=== PATIENT | female | born 1945 | race Caucasian/White ===

== ENCOUNTER 2017-11-14 16:43 | Inpatient (IN) | payer OTHER ==
--- NOTE | 2017-11-14 17:29 | PDOC ---
History of Present Illness - General History Source: Patient Exam Limitations: No Limitations - History of Present Illness Initial Comments: 11/14/17 18:13 Patient is a 72 year old female with a significant past medical history of Arthritis, IBS and COPD, Hypercholesterolemia, Blind left eye, Hiatal hernia and Osteoporosis, who presents to the ED with complaints of right leg pain that began this morning. Patient reports rolling onto her right side this morning when she suddenly experienced a sharp pain that began at her right groin and began to shoot down her right leg. She reports being unable to walk since pain began, stating she cried while walking to the bathroom due to right leg pain. She reports taking 2 percocet and 1 valium for pain with minimal relief. Denies chest pain, SOB. Denies nausea, vomiting. Denies fevers, chills. Denies numbness, tingles. Denies trauma to affected area. Allergies: Morphine, Nalbuphine, Sulfa Social history: Former smoker (last 1 week, since 15 y.o). No alcohol. No illicit drugs. Surgical history: Lung nodule surgery. PMD: Dr. 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) HTN: No Hypercholesterolemia: Yes Liver Disease: No Seizures: No Thyroid Disease: No - Surgical History Abdominal Surgery: No Appendectomy: No Cardiac Surgery: No Cholecystectomy: No Lung Surgery: Yes (SURGERY OF LUNG NODULES) Neurologic Surgery: No Orthopedic Surgery: No - Suicide/Smoking/Psychosocial Hx Smoking Status: Yes Smoking History: Current every day smoker Have you smoked in the past 12 months: Yes Number of Cigarettes Smoked Daily: 5 'Breaking Loose' booklet given: 12/16/13 Hx Alcohol Use: No Drug/Substance Use Hx: No Substance Use Type: None Hx Substance Use Treatment: No <BlayneSuni - Last Filed: 11/15/17 18:23> - Past Medical History Allergies/Adverse Reactions: Allergies Allergy/AdvReac Type Severity Reaction Status Date / Time morphine Allergy Verified 06/03/14 15:08 nalbuphine HCl [From Nubain] Allergy Verified 06/03/14 15:08 Sulfa (Sulfonamide Allergy Verified 06/03/14 15:08 Antibiotics) Home Medications: Ambulatory Orders Calcium (Oyster Shell) [Os-Petey 500MG -] 500 mg PO BID 08/22/13 FENTANYL 50mcg PATCH [DURAGESIC 50 mcg PATCH -] 1 each TD Q72H 08/22/13 Lubiprostone [Amitiza] 24 mcg PO DAILY PRN 08/22/13 Multivitamin [Multivitamins] 1 each PO DAILY 08/22/13 Roflumilast [Daliresp -] 500 mcg PO DAILY 08/22/13 Metoprolol Succinate [Toprol XL -] 25 mg PO DAILY #0 tab.sr.24h 08/28/13 Pyridoxine HCl (B-6) [Vitamin B6 -] 100 mg PO DAILY #0 tablet 08/28/13 Albuterol Sulfate [Proair Hfa -] 1 - 2 inh PO TID 12/15/13 Budesonide/Formeterol Fumarate [SYMBICORT 160/4.5mcg -] 2 inh PO BID 12/15/13 Linaclotide [Linzess] 145 mcg PO DAILY 06/03/14 Rosuvastatin Calcium [Crestor] 10 mg PO DAILY 06/03/14 Acetaminophen [Tylenol .Extra-Strength -] 1,000 mg PO Q6H 05/26/15 Diazepam [Valium] 5 mg PO BID 05/26/15 Pregabalin [Lyrica -] 75 mg PO BID 05/26/15 Review of Systems - Review of Systems Able to Perform ROS?: Yes Comments:: 11/14/17 18:13 GENERAL/CONSTITUTIONAL: No fever or chills. No weakness. HEAD, EYES, EARS, NOSE AND THROAT: No change in vision. No ear pain or discharge. No sore throat. GASTROINTESTINAL: No nausea, vomiting, diarrhea or constipation. GENITOURINARY: No dysuria, frequency, or change in urination. CARDIOVASCULAR: No chest pain or shortness of breath. RESPIRATORY: No cough, wheezing, or hemoptysis. MUSCULOSKELETAL: +Right leg pain. No joint or muscle swelling or pain. No neck or back pain. SKIN: No rash NEUROLOGIC: No headache, vertigo, loss of consciousness, or change in strength/ sensation. ENDOCRINE: No increased thirst. No abnormal weight change. HEMATOLOGIC/LYMPHATIC: No anemia, easy bleeding, or history of blood clots. ALLERGIC/IMMUNOLOGIC: No hives or skin allergy. All Other Systems: Reviewed and Negative <Khoi Rao - Last Filed: 11/14/17 18:13> *Physical Exam - Physical Exam Comments: GENERAL: Awake, alert, and fully oriented, in no acute distress HEAD: No signs of trauma EYES: PERRLA, EOMI, sclera anicteric, conjunctiva clear ENT: Auricles normal inspection, hearing grossly normal, nares patent, oropharynx clear without exudates. Moist mucosa NECK: Normal ROM, supple, no lymphadenopathy, JVD, or masses LUNGS: Breath sounds equal, clear to auscultation bilaterally. No wheezes, and no crackles HEART: Regular rate and rhythm, normal S1 and S2, no murmurs, rubs or gallops ABDOMEN: Soft, nontender, normoactive bowel sounds. No guarding, no rebound. No masses EXTREMITIES: R hip with dec ROM due to pain. Slightly internally rotated but not shortened. +Tenderness to proximal femur, R pelvic bones. Remainder of extremities with normal range of motion, no edema. No clubbing or cyanosis. No cords, erythema, or tenderness NEUROLOGICAL: Cranial nerves II through XII grossly intact. Normal speech, normal gait SKIN: Warm, Dry, normal turgor, no rashes or lesions noted. <Suni Cisneros - Last Filed: 11/15/17 18:23> ED Treatment Course - LABORATORY CBC & Chemistry Diagram: 11/14/17 18:54 11/14/17 21:19 <Suni Cisneros - Last Filed: 11/15/17 18:23> Medical Decision Making - Medical Decision Making 11/14/17 19:[address] Felipe at shift change. Awaiting XR to evaluate for poss fracture. She has history of osteoporosis with very low bone mass, high risk for fractures. Likely admission for inability to ambulate. <Suni Cisneros - Last Filed: 11/15/17 18:23> *DC/Admit/Observation/Transfer - Attestations Scribe Attestion: 11/14/17 18:13 Documentation prepared by Khoi Rao, acting as medical instrument cable fabricator for Suni Cisneros MD, /DO. <Khoi Rao - Last Filed: 11/14/17 18:13> <Suni Cisneros - Last Filed: 11/15/17 18:23> Diagnosis at time of Disposition: Intractable neuropathic pain of right lower extremity - Discharge Dispostion Condition at time of disposition: Stable
[2017-11-14] MEDS ORDERED: HYDROmorphone HCL CARPU-JECT 1 MG/1 ML DISP.SYRIN IVPUSH ONE ×2 (17:41→23:45)
[2017-11-14] MEDS ORDERED: fentaNYL 50mcg/hr PATCH.TD72 TD ONE (17:42)
[2017-11-14 18:47] VITALS: BMI 13.8
[2017-11-14 19:22] LABS: BASO % 0.9 % (0-2.0); EOS % 1.9 % (0-4.5); HEMATOCRIT 33.5 % (32.4-45.2); HEMOGLOBIN 11.3 GM/dL (10.7-15.3); LYMPH % 16.2 % (8-40); MCH 30.3 pg (25.7-33.7); MCHC 33.7 g/dl (32.0-36.0); MEAN CELL VOLUME 89.9 fl (80-96); MEAN PLT VOLUME 9.8 fl (7.5-11.1); MONO % 7.8 % (3.8-10.2); NEUT % 73.2 % (42.8-82.8); PLATELET COUNT 190 K/MM3 (134-434); RBC 3.73 M/mm3 (3.60-5.2); RDW 15.5 % (11.6-15.6); WHITE BLOOD COUNT 3.9 K/mm3 (4.0-10.0)
[2017-11-14] MEDS ORDERED: HYDROmorphone HCL CARPU-JECT 2 MG/1 ML DISP.SYRIN ONE ×2 (19:25→23:57)
[2017-11-14] MEDS ORDERED: fentaNYL 25mcg/hr PATCH.TD72 ONE (19:29)
[2017-11-14 19:39] LABS: INR 0.96 (0.82-1.09); PROTHROMBIN TIME (PATIENT) 10.9 SEC (9.98-11.88)
[2017-11-14 22:29] LABS: ALBUMIN 3.3 g/dl (3.4-5.0); ANION GAP 6 (8-16); BLOOD UREA NITROGEN 15 mg/dL (7-18); CALCIUM 8.1 mg/dL (8.5-10.1); CHLORIDE 105 mmol/L (98-107); CO2 28 mmol/L (21-32); CREATININE 0.9 mg/dL (0.55-1.02); GLUCOSE,RANDOM 138 mg/dL (74-106); POTASSIUM 4.2 mmol/L (3.5-5.1); SGOT/AST 8 U/L (15-37); SGPT/ALT 11 U/L (12-78); SODIUM 139 mmol/L (136-145)
[2017-11-14 22:31] LABS: ALK PHOS 53 U/L (45-117); BILIRUBIN,TOTAL 0.5 mg/dL (0.2-1.0); TOT PROT 6.4 g/dl (6.4-8.2)
--- NOTE | 2017-11-14 23:46 | PDOC ---
History of Present Illness - General Chief Complaint: Pain, Acute Stated Complaint: LEG PAIN Time Seen by Provider: 11/14/17 16:54 Past History - Past Medical History Allergies/Adverse Reactions: Allergies Allergy/AdvReac Type Severity Reaction Status Date / Time morphine Allergy Verified 06/03/14 15:08 nalbuphine HCl [From Nubain] Allergy Verified 06/03/14 15:08 Sulfa (Sulfonamide Allergy Verified 06/03/14 15:08 Antibiotics) Home Medications: Ambulatory Orders Calcium (Oyster Shell) [Os-Petey 500MG -] 500 mg PO BID 08/22/13 FENTANYL 50mcg PATCH [DURAGESIC 50 mcg PATCH -] 1 each TD Q72H 08/22/13 Lubiprostone [Amitiza] 24 mcg PO DAILY PRN 08/22/13 Multivitamin [Multivitamins] 1 each PO DAILY 08/22/13 Roflumilast [Daliresp -] 500 mcg PO DAILY 08/22/13 Metoprolol Succinate [Toprol XL -] 25 mg PO DAILY #0 tab.sr.24h 08/28/13 Pyridoxine HCl (B-6) [Vitamin B6 -] 100 mg PO DAILY #0 tablet 08/28/13 Albuterol Sulfate [Proair Hfa -] 1 - 2 inh PO TID 12/15/13 Budesonide/Formeterol Fumarate [SYMBICORT 160/4.5mcg -] 1 inh PO DAILY 12/15/13 Linaclotide [Linzess] 145 mcg PO DAILY 06/03/14 Rosuvastatin Calcium [Crestor] 10 mg PO DAILY 06/03/14 Acetaminophen [Tylenol .Extra-Strength -] 1,000 mg PO Q6H 05/26/15 Diazepam [Valium] 5 mg PO BID 05/26/15 No Aspirin/Nsaids 05/26/15 Pregabalin [Lyrica -] 75 mg PO BID 05/26/15 Anemia: No Asthma: No Cancer: No Cardiac Disorders: No CVA: No COPD: Yes (emphysema) CHF: No Dementia: No Diabetes: No GI Disorders: Yes (HIATAL HERNIA) 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) HTN: No Hypercholesterolemia: Yes Liver Disease: No Seizures: No Thyroid Disease: No - Surgical History Abdominal Surgery: No Appendectomy: No Cardiac Surgery: No Cholecystectomy: No Lung Surgery: Yes (SURGERY OF LUNG NODULES) Neurologic Surgery: No Orthopedic Surgery: No - Suicide/Smoking/Psychosocial Hx Smoking Status: Yes Smoking History: Former smoker Have you smoked in the past 12 months: Yes Number of Cigarettes Smoked Daily: 20 If you are a former smoker, when did you quit?: t-7 Information on smoking cessation initiated: No 'Breaking Loose' booklet given: 12/16/13 Hx Alcohol Use: No Drug/Substance Use Hx: No Substance Use Type: None Hx Substance Use Treatment: No *Physical Exam - Vital Signs Last Vital Signs Temp Pulse Resp BP Pulse Ox 98.3 F 59 L 20 108/62 97 11/14/17 18:39 11/14/17 18:39 11/14/17 18:39 11/14/17 18:39 11/14/17 18:39 ED Treatment Course - LABORATORY CBC & Chemistry Diagram: 11/14/17 18:54 11/14/17 21:19 - ADDITIONAL ORDERS Additional order review: Laboratory Results 11/14/17 11/14/17 11/14/17 21:19 18:54 18:54 PT with INR INR Sodium 139 Cancelled Potassium 4.2 Cancelled Chloride 105 Cancelled Carbon Dioxide 28 Cancelled Anion Gap 6 L Cancelled BUN 15 Cancelled Creatinine 0.9 Cancelled Creat Clearance w eGFR > 60 Cancelled Random Glucose 138 H Cancelled Calcium 8.1 L Cancelled Total Bilirubin 0.5 Cancelled AST 8 L Cancelled ALT 11 L Cancelled Alkaline Phosphatase 53 Cancelled Total Protein 6.4 Cancelled Albumin 3.3 L Cancelled Blood Type Cancelled Antibody Screen Cancelled 11/14/17 18:54 PT with INR 10.90 INR 0.96 Sodium Potassium Chloride Carbon Dioxide Anion Gap BUN Creatinine Creat Clearance w eGFR Random Glucose Calcium Total Bilirubin AST ALT Alkaline Phosphatase Total Protein Albumin Blood Type Antibody Screen 11/14/17 18:54 RBC 3.73 MCV 89.9 MCHC 33.7 RDW 15.5 D MPV 9.8 Neutrophils % 73.2 D Lymphocytes % 16.2 D Monocytes % 7.8 Eosinophils % 1.9 D Basophils % 0.9 - Medications Given in the ED: ED Medications Discontinued Medications Generic Name Dose Route Start Last Admin Trade Name Freq PRN Reason Stop Dose Admin Fentanyl 1 patch 11/14/17 17:42 11/14/17 19:37 Duragesic 50mcg Patch - TD 11/14/17 17:43 1 patch ONCE ONE Administration Hydromorphone HCl 0.5 mg 11/14/17 17:41 11/14/17 19:29 Dilaudid Injection - IVPUSH 11/14/17 17:42 0.5 mg ONCE ONE Administration *DC/Admit/Observation/Transfer Diagnosis at time of Disposition: Intractable neuropathic pain of right lower extremity - Discharge Dispostion Condition at time of disposition: Stable Admit: Yes - Referrals Referrals: Rashad Keen MD [Primary Care Provider] - - Patient Instructions - Post Discharge Activity
[2017-11-15] MEDS ORDERED: PATIENT'S OWN MEDICATION (NON-FORMULARY) (Lubiprostone [Amitiza] 24 MCG) PO PRN (01:09)
--- NOTE | 2017-11-15 01:17 | HP ---
CHIEF COMPLAINT: Right groin and RLE pain PCP: Rashad Keen HISTORY OF PRESENT ILLNESS: 72 year old female with history of chronic R groin pain that presents with acute exacerbation of such pain , 10 /10 in intensity, radiating down to RLE . Unabe to ambulate due to severe pain . Denies trauma ER course was notable for: multiple doses of IV dilaudid Recent Travel: PAST MEDICAL HISTORY: Fibromyalgia COPD HTN Hyperlipidemia PAST SURGICAL HISTORY: denies Social History: Smoking: Yes 40 p/y quit 1 week ago Alcohol:denies Drugs: denies Family History: HTN Allergies morphine Allergy (Verified 06/03/14 15:08) nalbuphine HCl [From Nubain] Allergy (Verified 06/03/14 15:08) Sulfa (Sulfonamide Antibiotics) Allergy (Verified 06/03/14 15:08) HOME MEDICATIONS: Home Medications Medication Instructions Recorded Calcium (Oyster Shell) [Os-Petey 500 mg PO BID 08/22/13 500MG -] FENTANYL 50mcg PATCH [DURAGESIC 50 1 each TD Q72H 08/22/13 mcg PATCH -] Lubiprostone [Amitiza] 24 mcg PO DAILY PRN 08/22/13 Multivitamin [Multivitamins] 1 each PO DAILY 08/22/13 Roflumilast [Daliresp -] 500 mcg PO DAILY 08/22/13 Metoprolol Succinate [Toprol XL -] 25 mg PO DAILY #0 tab.sr.24h 08/28/13 Pyridoxine HCl (B-6) [Vitamin B6 -] 100 mg PO DAILY #0 tablet 08/28/13 Albuterol Sulfate [Proair Hfa -] 1 - 2 inh PO TID 12/15/13 Budesonide/Formeterol Fumarate 1 inh PO DAILY 12/15/13 [SYMBICORT 160/4.5mcg -] Linaclotide [Linzess] 145 mcg PO DAILY 06/03/14 Rosuvastatin Calcium [Crestor] 10 mg PO DAILY 06/03/14 Acetaminophen [Tylenol 1,000 mg PO Q6H 05/26/15 .Extra-Strength -] Diazepam [Valium] 5 mg PO BID 05/26/15 No Aspirin/Nsaids 05/26/15 Pregabalin [Lyrica -] 75 mg PO BID 05/26/15 REVIEW OF SYSTEMS CONSTITUTIONAL: Absent: fever, chills, diaphoresis, generalized weakness, malaise, loss of appetite, weight change HEENT: Absent: rhinorrhea, nasal congestion, throat pain, throat swelling, difficulty swallowing, mouth swelling, ear pain, eye pain, visual changes CARDIOVASCULAR: Absent: chest pain, syncope, palpitations, irregular heart rate, lightheadedness , peripheral edema RESPIRATORY: Absent: cough, shortness of breath, dyspnea with exertion, orthopnea, wheezing, stridor, hemoptysis GASTROINTESTINAL: Absent: abdominal pain, abdominal distension, nausea, vomiting, diarrhea, constipation, melena, hematochezia GENITOURINARY: Absent: dysuria, frequency, urgency, hesitancy, hematuria, flank pain, genital pain MUSCULOSKELETAL: positive forarthralgia, back pain, neck pain SKIN: Absent: rash, itching, pallor HEMATOLOGIC/IMMUNOLOGIC: Absent: easy bleeding, easy bruising, lymphadenopathy, frequent infections ENDOCRINE: Absent: unexplained weight gain, unexplained weight loss, heat intolerance, cold intolerance NEUROLOGIC: Absent: headache, focal weakness or paresthesias, dizziness, unsteady gait, seizure, mental status changes, bladder or bowel incontinence PSYCHIATRIC: Absent: anxiety, depression, suicidal or homicidal ideation, hallucinations. PHYSICAL EXAMINATION Vital Signs - 24 hr 11/14/17 18:39 Temperature 98.3 F Pulse Rate 59 L Respiratory 20 Rate Blood Pressure 108/62 O2 Sat by Pulse 97 Oximetry (%) GENERAL: Awake, alert, and fully oriented, in no acute distress. HEAD: Normal with no signs of trauma. EYES: Pupils equal, round and reactive to light, extraocular movements intact, sclera anicteric, conjunctiva clear. No lid lag. EARS, NOSE, THROAT: Ears normal, nares patent, oropharynx clear without exudates. Moist mucous membranes. NECK: Normal range of motion, supple without lymphadenopathy, JVD, or masses. LUNGS: Breath sounds equal, clear to auscultation bilaterally. No wheezes, and no crackles. No accessory muscle use. HEART: Regular rate and rhythm, normal S1 and S2 without murmur, rub or gallop. ABDOMEN: Soft, nontender, not distended, normoactive bowel sounds, no guarding, no rebound, no masses. No hepatomegaly or splenomegaly. MUSCULOSKELETAL: Normal range of motion at all joints. No bony deformities or tenderness. No CVA tenderness. UPPER EXTREMITIES: 2+ pulses, warm, well-perfused. No cyanosis. No clubbing. No peripheral edema. LOWER EXTREMITIES: 2+ pulses, warm, well-perfused. No calf tenderness. No peripheral edema. NEUROLOGICAL: Cranial nerves II-XII intact. Normal speech. Normal gait. PSYCHIATRIC: Cooperative. Good eye contact. Appropriate mood and affect. SKIN: Warm, dry, normal turgor, no rashes or lesions noted, normal capillary refill. Laboratory Results - last 24 hr 11/14/17 11/14/17 11/14/17 18:54 18:54 18:54 WBC 3.9 L RBC 3.73 Hgb 11.3 D Hct 33.5 D MCV 89.9 MCH 30.3 MCHC 33.7 RDW 15.5 D Plt Count 190 D MPV 9.8 Neutrophils % 73.2 D Lymphocytes % 16.2 D Monocytes % 7.8 Eosinophils % 1.9 D Basophils % 0.9 PT with INR 10.90 INR 0.96 Sodium Cancelled Potassium Cancelled Chloride Cancelled Carbon Dioxide Cancelled Anion Gap Cancelled BUN Cancelled Creatinine Cancelled Creat Clearance w eGFR Cancelled Random Glucose Cancelled Calcium Cancelled Total Bilirubin Cancelled AST Cancelled ALT Cancelled Alkaline Phosphatase Cancelled Total Protein Cancelled Albumin Cancelled Blood Type Antibody Screen 11/14/17 11/14/17 18:54 21:19 WBC RBC Hgb Hct MCV MCH MCHC RDW Plt Count MPV Neutrophils % Lymphocytes % Monocytes % Eosinophils % Basophils % PT with INR INR Sodium 139 Potassium 4.2 Chloride 105 Carbon Dioxide 28 Anion Gap 6 L BUN 15 Creatinine 0.9 Creat Clearance w eGFR > 60 Random Glucose 138 H Calcium 8.1 L Total Bilirubin 0.5 AST 8 L ALT 11 L Alkaline Phosphatase 53 Total Protein 6.4 Albumin 3.3 L Blood Type Cancelled Antibody Screen Cancelled ASSESSMENT/PLAN: 1. Intractable pain - possible schiatica - required multiple doses of IV narcotics . Unable to ambulate due to pain . XR - no caute fractures - IV dilaudid PRN - PT eval - d/c planning to s/acute rehab vs home 2. HTN - stable / controlled - c/w home meds 3. DVT PPX - scd, short stay anticipated OBS Visit type - Emergency Visit Emergency Visit: Yes ED Registration Date: 11/14/17 Care time: The patient presented to the Emergency Department on the above date and was hospitalized for further evaluation of their emergent condition. - New Patient This patient is new to me today: Yes Date on this admission: 11/15/17 - Critical Care Critical Care patient: No
[2017-11-15] MEDS ORDERED: HYDROmorphone HCL CARPU-JECT 2 MG/1 ML DISP.SYRIN ONE (08:11)
[2017-11-15] MEDS: HYDROmorphone HCL CARPU-JECT 2 MG/1 ML DISP.SYRIN IVPB PRN (08:12)
[2017-11-15] MEDS: ROSUVASTATIN CA 10 MG TABLET (FP) PO SCH (09:32)
[2017-11-15] MEDS: ROFLUMILAST 500 MCG TABLET PO SCH (09:32)
[2017-11-15] MEDS: METOPROLOL SUCCINATE 25 MG TAB.SR.24H (FP) PO SCH (09:33)
[2017-11-15] MEDS ORDERED: PREGABALIN 50 MG CAPSULE ONE (09:34)
[2017-11-15] MEDS ORDERED: diazePAM 5 MG TABLET ONE (09:34)
[2017-11-15] MEDS ORDERED: PREGABALIN 25 MG CAPSULE ONE (09:34)
[2017-11-15] MEDS: diazePAM 5 MG TABLET PO SCH ×2 (09:35→22:23)
[2017-11-15] MEDS: PREGABALIN 75 MG CAPSULE PO SCH ×2 (09:35→22:23)
[2017-11-15] MEDS: BUDESONIDE/FORMETEROL FUMARATE 160/4.5 mcg INHALER IH SCH ×2 (09:35→22:23)
--- NOTE | 2017-11-15 12:31 | EKG ---
Test Reason : Blood Pressure : / mmHG Vent. Rate : 070 BPM Atrial Rate : 070 BPM P-R Int : 186 ms QRS Dur : 082 ms QT Int : 374 ms P-R-T Axes : 079 073 076 degrees QTc Int : 403 ms NORMAL SINUS RHYTHM CANNOT RULE OUT ANTERIOR INFARCT (CITED ON OR BEFORE 12-APR-2012) ABNORMAL ECG WHEN COMPARED WITH ECG OF 03-JUN-2014 16:41, NO SIGNIFICANT CHANGE WAS FOUND Confirmed by CESAR MULLINS MD ([id number]) on 11/15/2017 12:30:31 PM Referred By: Confirmed By:CESAR MULLINS MD
--- NOTE | 2017-11-15 13:12 | PN ---
Progress Note, Physician Chief Complaint: patient seen and examined RLE pain when she moves in bed, unable to ambulate - Current Medication List Current Medications: Active Medications Budesonide/Formoterol Fumarate (Symbicort 160/4.5mcg -) 2 puff IH BID [facility] Last Admin: 11/15/17 09:35 Dose: Not Given Diazepam (Valium -) 5 mg PO BID [facility] Last Admin: 11/15/17 09:35 Dose: 5 mg Fentanyl (Duragesic 50mcg Patch -) 1 patch TD Q72H [facility] Hydromorphone HCl (Dilaudid Injection -) 0.5 mg IVPB Q6H PRN PRN Reason: PAIN Last Admin: 11/15/17 08:12 Dose: 0.5 mg Metoprolol Succinate (Toprol Xl -) 25 mg PO DAILY [facility] Last Admin: 11/15/17 09:33 Dose: 25 mg Non-Formulary Medication (Lubiprostone [Amitiza]) 24 mcg PO DAILY PRN PRN Reason: CONSTIPATION Pregabalin (Lyrica -) 75 mg PO BID [facility] Last Admin: 11/15/17 09:35 Dose: 75 mg Roflumilast (Daliresp -) 500 mcg PO DAILY [facility] Last Admin: 11/15/17 09:32 Dose: 500 mcg Rosuvastatin Calcium (Crestor -) 10 mg PO DAILY [facility] Last Admin: 11/15/17 09:32 Dose: 10 mg - Objective Vital Signs: Vital Signs Temperature 98.4 F 11/15/17 12:00 Pulse Rate 60 11/15/17 12:00 Respiratory Rate 18 11/15/17 12:00 Blood Pressure 128/77 11/15/17 12:00 O2 Sat by Pulse Oximetry (%) 97 11/15/17 12:00 Constitutional: Yes: Calm Cardiovascular: Yes: Regular Rate and Rhythm, S1, S2 Respiratory: Yes: CTA Bilaterally Gastrointestinal: Yes: Normal Bowel Sounds, Soft Edema: No Neurological: Yes: Alert, Oriented Labs: CBC, BMP 11/14/17 18:54 11/14/17 21:19 INR, PTT INR 0.96 (0.82-1.09) 11/14/17 18:54 Problem List - Problems (1) Intractable neuropathic pain of right lower extremity Assessment/Plan: neuro eval PMR eval CT scan of LE lyrica possible STR dvt ppx pain control Code(s): G57.91 - UNSPECIFIED MONONEUROPATHY OF RIGHT LOWER LIMB (2) HTN (hypertension) Assessment/Plan: metoprolol Code(s): I10 - ESSENTIAL (PRIMARY) HYPERTENSION (3) HLD (hyperlipidemia) Assessment/Plan: statin Code(s): E78.5 - HYPERLIPIDEMIA, UNSPECIFIED (4) COPD (chronic obstructive pulmonary disease) Assessment/Plan: daliresp Code(s): J44.9 - CHRONIC OBSTRUCTIVE PULMONARY DISEASE, UNSPECIFIED
--- NOTE | 2017-11-16 09:29 | CONSULT ---
Consult - text type - Consultation Consultation Note: Neurology History of Present Illness Patient is a 72 year old female with a significant past medical history of Arthritis, IBS and COPD, Hypercholesterolemia, Blind left eye, Hiatal hernia and Osteoporosis, who presents to the ED with complaints of right leg pain. She reported rolling onto her right side when she suddenly experienced a sharp pain that began at her right groin and began to shoot down her right leg. She reports being unable to walk since pain began, stating she cried while walking to the bathroom due to right leg pain. She reports taking 2 percocet and 1 valium for pain with minimal relief. She was admitted for further mgmt and has been getting medication. MRI L spine completed and reviewed images. Awaiting final report but multilevel degenerative changes noted. Multilevel bulging and herniations. Patient not interested in surgery and not likely to be a good candidate. Past History - Past Medical History Anemia: No Asthma: No Cancer: No Cardiac Disorders: No CVA: No COPD: Yes (emphysema) CHF: No Dementia: No Diabetes: No GI Disorders: Yes (HIATAL HERNIA) 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) HTN: No Hypercholesterolemia: Yes Liver Disease: No Seizures: No Thyroid Disease: No - Surgical History Abdominal Surgery: No Appendectomy: No Cardiac Surgery: No Cholecystectomy: No Lung Surgery: Yes (SURGERY OF LUNG NODULES) Neurologic Surgery: No Orthopedic Surgery: No - Suicide/Smoking/Psychosocial Hx Smoking Status: Yes Smoking History: Current every day smoker Have you smoked in the past 12 months: Yes Number of Cigarettes Smoked Daily: 5 'Breaking Loose' booklet given: 12/16/13 Hx Alcohol Use: No Drug/Substance Use Hx: No Substance Use Type: None Hx Substance Use Treatment: No - Past Medical History Allergies/Adverse Reactions: Allergies Allergy/AdvReac Type Severity Reaction Status Date / Time morphine Allergy Verified 06/03/14 15:08 nalbuphine HCl [From Nubain] Allergy Verified 06/03/14 15:08 Sulfa (Sulfonamide Allergy Verified 06/03/14 15:08 Antibiotics) Home Medications: Ambulatory Orders Calcium (Oyster Shell) [Os-Petey 500MG -] 500 mg PO BID 08/22/13 FENTANYL 50mcg PATCH [DURAGESIC 50 mcg PATCH -] 1 each TD Q72H 08/22/13 Lubiprostone [Amitiza] 24 mcg PO DAILY PRN 08/22/13 Multivitamin [Multivitamins] 1 each PO DAILY 08/22/13 Roflumilast [Daliresp -] 500 mcg PO DAILY 08/22/13 Metoprolol Succinate [Toprol XL -] 25 mg PO DAILY #0 tab.sr.24h 08/28/13 Pyridoxine HCl (B-6) [Vitamin B6 -] 100 mg PO DAILY #0 tablet 08/28/13 Albuterol Sulfate [Proair Hfa -] 1 - 2 inh PO TID 12/15/13 Budesonide/Formeterol Fumarate [SYMBICORT 160/4.5mcg -] 2 inh PO BID 12/15/13 Linaclotide [Linzess] 145 mcg PO DAILY 06/03/14 Rosuvastatin Calcium [Crestor] 10 mg PO DAILY 06/03/14 Acetaminophen [Tylenol .Extra-Strength -] 1,000 mg PO Q6H 05/26/15 Diazepam [Valium] 5 mg PO BID 05/26/15 Pregabalin [Lyrica -] 75 mg PO BID 05/26/15 Review of Systems GENERAL/CONSTITUTIONAL: No fever or chills. No weakness. HEAD, EYES, EARS, NOSE AND THROAT: No change in vision. No ear pain or discharge. No sore throat. GASTROINTESTINAL: No nausea, vomiting, diarrhea or constipation. GENITOURINARY: No dysuria, frequency, or change in urination. CARDIOVASCULAR: No chest pain or shortness of breath. RESPIRATORY: No cough, wheezing, or hemoptysis. MUSCULOSKELETAL: +Right leg pain. No joint or muscle swelling or pain. No neck or back pain. SKIN: No rash NEUROLOGIC: No headache, vertigo, loss of consciousness, or change in strength/ sensation. ENDOCRINE: No increased thirst. No abnormal weight change. HEMATOLOGIC/LYMPHATIC: No anemia, easy bleeding, or history of blood clots. ALLERGIC/IMMUNOLOGIC: No hives or skin allergy. All Other Systems: Reviewed and Negative *Physical Exam Vital Signs Period Temp Pulse Resp BP Sys/Martinez Pulse Ox Last 24 Hr 98.4 F-98.8 F 60-74 18-20 120-128/75-77 95-97 GENERAL: Awake, alert, and fully oriented, in no acute distress HEAD: No signs of trauma EYES: PERRLA, EOMI, sclera anicteric, conjunctiva clear ENT: Auricles normal inspection, hearing grossly normal, nares patent, oropharynx clear without exudates. Moist mucosa NECK: Normal ROM, supple, no lymphadenopathy, JVD, or masses LUNGS: Breath sounds equal, clear to auscultation bilaterally. No wheezes, and no crackles HEART: Regular rate and rhythm, normal S1 and S2, no murmurs, rubs or gallops ABDOMEN: Soft, nontender, normoactive bowel sounds. No guarding, no rebound. No masses EXTREMITIES: R hip with dec ROM due to pain. Slightly internally rotated but not shortened. +Tenderness to proximal femur, R pelvic bones. Remainder of extremities with normal range of motion, no edema. No clubbing or cyanosis. No cords, erythema, or tenderness NEUROLOGICAL: Cranial nerves II through XII grossly intact. Normal speech, RLE 4-/5 at best effort, 5/5 in UE SKIN: Warm, Dry, normal turgor, no rashes or lesions noted. CBCD WBC 3.9 K/mm3 (4.0-10.0) L 11/14/17 18:54 RBC 3.73 M/mm3 (3.60-5.2) 11/14/17 18:54 Hgb 11.3 GM/dL (10.7-15.3) D 11/14/17 18:54 Hct 33.5 % (32.4-45.2) D 11/14/17 18:54 MCV 89.9 fl (80-96) 11/14/17 18:54 MCHC 33.7 g/dl (32.0-36.0) 11/14/17 18:54 RDW 15.5 % (11.6-15.6) D 18 18:54 Plt Count 190 K/MM3 (134-434) D 11/14/17 18:54 MPV 9.8 fl (7.5-11.1) 18 18:54 CMP Sodium 139 mmol/L (136-145) 11/14/17 21:19 Potassium 4.2 mmol/L (3.5-5.1) 11/14/17 21:19 Chloride 105 mmol/L (98-107) 11/14/17 21:19 Carbon Dioxide 28 mmol/L (21-32) 11/14/17 21:19 Anion Gap 6 (8-16) L 11/14/17 21:19 BUN 15 mg/dL (7-18) 11/14/17 21:19 Creatinine 0.9 mg/dL (0.55-1.02) 11/14/17 21:19 Creat Clearance w eGFR > 60 (>60) 11/14/17 21: Calcium 8.1 mg/dL (8.5-10.1) L 11/14/17 21: Total Bilirubin 0.5 mg/dL (0.2-1.0) 11/14/17 21:19 AST 8 U/L (15-37) L 11/14/17 21: ALT 11 U/L (12-78) L 11/14/17 21: Alkaline Phosphatase 53 U/L (45-117) 11/14/17 21: Total Protein 6.4 g/dl (6.4-8.2) 11/14/17 21: Albumin 3.3 g/dl (3.4-5.0) L 11/14/17 21:19 MRI L spine reviewed Plan: 72 year old female with a significant past medical history of Arthritis, IBS and COPD, Hypercholesterolemia, Blind left eye, Hiatal hernia and Osteoporosis, who presents to the ED with complaints of right leg pain. She reported rolling onto her right side when she suddenly experienced a sharp pain that began at her right groin and began to shoot down her right leg. She reports being unable to walk since pain began, stating she cried while walking to the bathroom due to right leg pain. MRI L spine completed and reviewed images. Awaiting final report but multilevel degenerative changes noted. Multilevel bulging and herniations. Patient not interested in surgery and not likely to be a good candidate. May benefit from injections Pain mgmt recommended, caution with retirement opioid use Fall precautions Physical therapy Patient not interested in rehab May benefit from assistive device
[2017-11-16] MEDS: PREGABALIN 75 MG CAPSULE PO SCH ×2 (09:56→21:27)
[2017-11-16] MEDS: METOPROLOL SUCCINATE 25 MG TAB.SR.24H (FP) PO SCH (09:58)
[2017-11-16] MEDS: diazePAM 5 MG TABLET PO SCH ×2 (09:58→21:26)
[2017-11-16] MEDS: HYDROmorphone HCL CARPU-JECT 2 MG/1 ML DISP.SYRIN IVPB PRN (10:00)
--- NOTE | 2017-11-16 10:00 | CONS ---
PHYSICAL MEDICINE REHABILITATION CONSULTATION REFERRING PHYSICIAN: Ramya Stallings MD DATE OF ADMISSION: 11/15/2017 DATE OF CONSULTATION: 11/16/2017 HISTORY OF PRESENT ILLNESS: The patient is a 72-year-old woman with past medical history of lumbar radiculopathy, COPD, fibromyalgia, who was admitted with increasing pain radiating into her right groin and down the right lower extremity with inability to ambulate over the last 3 weeks. Patient states she has had chronic problems with her back dating back many decades. She has undergone injections in the past, which have not helped and underwent an MRI back in 2013 of the lumbar spine which showed degenerative disc disease at L4-L5 with some osteophyte formation. Patient also on presentations in the emergency room underwent x-ray of her pelvis and hip, which were negative, but did show L4-L5 degenerative disc disease as well as spondylosis at this level bilaterally. Patient is comfortable in bed and also apparently underwent an MRI of the lumbar spine, official results are pending. Patient is on Lyrica 75 mg twice a day. She states normally at home she is on 3 times a day, but it may give her some side effects. Patient also usually takes Percocet and Valium. She is on a Duragesic patch currently at 50 mcg every 72 hours with Dilaudid for breakthrough pain. She normally takes Percocet for breakthrough pain. Patient is on Valium 5 mg twice a day additionally. Patient has been up and ambulatory since hospitalization and is now seen in rehabilitation evaluation. She does complain of some tingling in the right lower extremity and weakness mainly due to pain. REVIEW OF PAST MEDICAL AND SURGICAL HISTORY: Fibromyalgia, COPD, hypertension, hyperlipidemia. SOCIAL HISTORY: She lives in an apartment with a significant other. She apparently has an elevator. She used a cane, and also has a walker at home, but was using a cane mainly. She has a [id number] tobacco history and states she quit about a week ago. No alcohol. FAMILY HISTORY: Significant for elevated blood pressure. ALLERGY: To MORPHINE. REVIEW OF SYSTEMS: No current lightheadedness or dizziness. She does get some blurry vision , which she though may have been due to the Lyrica 3 times a day. She is blind in her left eye. No nausea, vomiting, difficulty swallowing, difficulty chewing. No chest pain or shortness of breath at rest. She does get dyspneic with exertion. No numbness/tingling in the upper extremities, but she feels generalized joint arthralgias and muscle aches even in the left lower extremity, which is not her chief complaint and is more its baseline. She has less back pain than groin and leg pain, but she does get some degree of back pain, tingling in the right lower extremity, and again weakness. No skin rash. No significant weight change. PHYSICAL EXAMINATION: General: On examination, a very thin, cachectic woman seen lying in bed. She is awake and cooperative and seems to be a fairly good historian. She is in no acute distress. HEENT: She is normocephalic and atraumatic. Her extraocular muscles appear intact. She has no obvious facial weakness. Neck: Supple. Extremities: Without any pitting edema or isolated calf tenderness. She is generally sore throughout all of her muscles. Skin: Without any rash or breakdown. Neuromuscular: She is awake, alert, and oriented x3. Cranial nerves 2 through 12 are grossly intact. She seems to have good motor power in the upper extremities and left lower extremity with some mild hip girdle weakness. The right lower extremity also has good distal strength with perhaps mild dorsiflexion weakness on the right, 4+ out of 5. Patient has normal sensation to pinprick, and moderate weakness of the hip girdle, 3 out of 5. She has good internal and external rotation in both hip joints and good knee flexion and extension, good dorsiflexion and plantar flexion, symmetric reflexes. Unable to stand or ambulate her at this time. OVERALL IMPRESSION: 1. Deficits mobility and activities of daily living. 2. Right L5 radiculopathy with underlying degenerative disc disease at L4-L5, spondylosis, and possibly some mild canal stenosis on MRI, official report pending. 3. Fibromyalgia. 4. Underlying chronic obstructive pulmonary disease. 5. Cachexia. 6. Hypertension. 7. Hyperlipidemia. PLANS AND SUGGESTIONS: 1. Agree with physical therapy for mobilization as able, strengthening as able. 2. Check official MRI report. Again, images are reviewed and may show some canal stenosis in addition to the degenerative disc disease at L4-L5 and spondylosis. 3. Continue Lyrica 75 mg twice a day. 4. Continue Duragesic patch and Dilaudid for breakthrough pain, but change to oral Percocet when able. 5. Continue Valium. 6. Patient states she has not had any improvement with cortisone injection or lumbar epidural in the past. 7. Hopefully home with home or outpatient therapy, less likely short-term rehabilitation in a [place] [facility] facility. Thank you for this referral. YADIRA MIR M.D. MONE/[id number]
[2017-11-16] MEDS ORDERED: PT OWN MED DRAWER 7, Y5N ONE (10:04)
--- NOTE | 2017-11-16 10:04 | PN ---
Progress Note, Physician Chief Complaint: Right groin pain, inability to ambulate History of Present Illness: NAD, in bed, pain is improved seen by Neurology MRI lumbar spine done, awaiting official report not a candidate for surgery, doesn't want surgery or rehab to be evaluated by PT pain management - Current Medication List Current Medications: Active Medications Budesonide/Formoterol Fumarate (Symbicort 160/4.5mcg -) 2 puff IH BID [facility] Last Admin: 11/15/17 22:23 Dose: 2 puff Diazepam (Valium -) 5 mg PO BID [facility] Last Admin: 11/15/17 22:23 Dose: 5 mg Fentanyl (Duragesic 50mcg Patch -) 1 patch TD Q72H [facility] Hydromorphone HCl (Dilaudid Injection -) 0.5 mg IVPB Q6H PRN PRN Reason: PAIN Last Admin: 11/15/17 08:12 Dose: 0.5 mg Metoprolol Succinate (Toprol Xl -) 25 mg PO DAILY [facility] Last Admin: 11/15/17 09:33 Dose: 25 mg Non-Formulary Medication (Lubiprostone [Amitiza]) 24 mcg PO DAILY PRN PRN Reason: CONSTIPATION Pregabalin (Lyrica -) 75 mg PO BID [facility] Last Admin: 11/15/17 22:23 Dose: 75 mg Roflumilast (Daliresp -) 500 mcg PO DAILY [facility] Last Admin: 11/15/17 09:32 Dose: 500 mcg Rosuvastatin Calcium (Crestor -) 10 mg PO DAILY [facility] Last Admin: 11/15/17 09:32 Dose: 10 mg - Objective Vital Signs: Vital Signs Temperature 98.8 F 11/16/17 05:48 Pulse Rate 74 11/16/17 05:48 Respiratory Rate 18 11/16/17 05:48 Blood Pressure 120/75 11/16/17 05:48 O2 Sat by Pulse Oximetry (%) 95 11/15/17 21:00 Constitutional: Yes: Well Nourished, No Distress, Calm Cardiovascular: Yes: Regular Rate and Rhythm Respiratory: Yes: Regular Gastrointestinal: Yes: Normal Bowel Sounds, Soft Musculoskeletal: Yes: Muscle Weakness Extremities: Yes: Other (Right lower extremity weakness) Edema: No Peripheral Pulses WNL: Yes Neurological: Yes: Alert, Oriented Psychiatric: Yes: Alert, Oriented Labs: CBC, BMP 11/14/17 18:54 11/14/17 21:19 INR, PTT INR 0.96 (0.82-1.09) 11/14/17 18:54 Problem List - Problems (1) Intractable neuropathic pain of right lower extremity Assessment/Plan: -pain management- dosage on fentanyl patch increased - will go home on lyrica, valium, oxycodone and fentanyl patch -MRI official report -PT evaluation for home PT or rehab Code(s): G57.91 - UNSPECIFIED MONONEUROPATHY OF RIGHT LOWER LIMB Assessment/Plan see problem list
[2017-11-16] MEDS: ROFLUMILAST 500 MCG TABLET PO SCH (10:06)
[2017-11-16] MEDS: ROSUVASTATIN CA 10 MG TABLET (FP) PO SCH (10:07)
[2017-11-16] MEDS: BUDESONIDE/FORMETEROL FUMARATE 160/4.5 mcg INHALER IH SCH ×2 (10:10→21:28)
[2017-11-16] MEDS: HEPARIN NA (PORCINE) 5,000 UNITS/ML 1ML VIAL SQ SCH ×2 (10:15→21:27)
[2017-11-16] MEDS: PANTOPRAZOLE 40 MG TABLET (FP) PO SCH (10:22)
[2017-11-16] MEDS ORDERED: DOCUSATE SODIUM 100 MG CAPSULE (FP) PO PRN (13:22)
--- NOTE | 2017-11-16 13:29 | DS ---
Physical Examination Vital Signs: Vital Signs Temperature 99.4 F 11/16/17 10:00 Pulse Rate 75 11/16/17 10:00 Respiratory Rate 18 11/16/17 10:00 Blood Pressure 95/62 11/16/17 10:00 O2 Sat by Pulse Oximetry (%) 96 11/16/17 09:00 Constitutional: Yes: Well Nourished, No Distress, Calm Cardiovascular: Yes: Regular Rate and Rhythm Respiratory: Yes: Regular Gastrointestinal: Yes: Normal Bowel Sounds, Soft Musculoskeletal: Yes: Muscle Weakness Extremities: Yes: WNL Edema: No Peripheral Pulses WNL: Yes Neurological: Yes: Alert, Oriented Psychiatric: Yes: Alert, Oriented Labs: CBC, BMP 11/14/17 18:54 11/14/17 21:19 Discharge Summary Reason For Visit: INTRACTABLE NEUROPATHIC PAIN LWR RIGHT EX Current Active Problems COPD (chronic obstructive pulmonary disease) (Acute) HLD (hyperlipidemia) (Acute) HTN (hypertension) (Acute) Intractable neuropathic pain of right lower extremity (Acute) Hospital Course: Patient is a 72 year old female with a significant past medical history of Arthritis, IBS and COPD, Hypercholesterolemia, Blind left eye, Hiatal hernia and Osteoporosis, who presents to the ED with complaints of right leg pain that began this morning. Patient reports rolling onto her right side this morning when she suddenly experienced a sharp pain that began at her right groin and began to shoot down her right leg. She reports being unable to walk since pain began, stating she cried while walking to the bathroom due to right leg pain. She reports taking 2 percocet and 1 valium for pain with minimal relief. During her stay she was seen by neurology, had MRI lumbar spine done which showed multilevel herniated discs. Her pain was managed with dilaudid, valium, lyrica and fentanyl patch. She was evaluated by performance improvement specialist and was able to ambulate with walker with minimal assistance. Condition: Stable - Instructions Referrals: Rashad Keen MD [Primary Care Provider] - Disposition: [facility]/HOME HEALTH CARE - Home Medications Comprehensive Discharge Medication List: Ambulatory Orders Calcium (Oyster Shell) [Os-Petey 500MG -] 500 mg PO BID 08/22/13 FENTANYL 50mcg PATCH [DURAGESIC 50 mcg PATCH -] 1 each TD Q72H 08/22/13 Lubiprostone [Amitiza] 24 mcg PO DAILY PRN 08/22/13 Multivitamin [Multivitamins] 1 each PO DAILY 08/22/13 Roflumilast [Daliresp -] 500 mcg PO DAILY 08/22/13 Metoprolol Succinate [Toprol XL -] 25 mg PO DAILY #0 tab.sr.24h 08/28/13 Pyridoxine HCl (B-6) [Vitamin B6 -] 100 mg PO DAILY #0 tablet 08/28/13 Albuterol Sulfate [Proair Hfa -] 1 - 2 inh PO TID 12/15/13 Budesonide/Formeterol Fumarate [SYMBICORT 160/4.5mcg -] 2 inh PO BID 12/15/13 Rosuvastatin Calcium [Crestor] 10 mg PO DAILY 06/03/14 Acetaminophen [Tylenol .Extra-Strength -] 1,000 mg PO Q6H 05/26/15 Diazepam [Valium] 5 mg PO BID 05/26/15 Pregabalin [Lyrica -] 75 mg PO TID 05/26/15 Trazodone HCl 50 mg PO HS 11/15/17
[2017-11-16] MEDS: oxyCODONE HCL 5 MG TABLET PO PRN (18:57)
[2017-11-16] MEDS ORDERED: fentaNYL 50mcg/hr PATCH.TD72 TD SCH (20:00)
[2017-11-16] MEDS: traZODone HCL 50 MG TABLET (FP) PO SCH (21:27)
[2017-11-17 08:28] LABS: BASO % 1.2 % (0-2.0); EOS % 3.1 % (0-4.5); HEMATOCRIT 35.6 % (32.4-45.2); HEMOGLOBIN 11.6 GM/dL (10.7-15.3); LYMPH % 37.8 % (8-40); MCH 29.2 pg (25.7-33.7); MCHC 32.4 g/dl (32.0-36.0); MEAN CELL VOLUME 89.9 fl (80-96); MEAN PLT VOLUME 9.2 fl (7.5-11.1); MONO % 14.6 % (3.8-10.2); NEUT % 43.3 % (42.8-82.8); PLATELET COUNT 183 K/MM3 (134-434); RBC 3.96 M/mm3 (3.60-5.2); RDW 15.4 % (11.6-15.6); WHITE BLOOD COUNT 3.7 K/mm3 (4.0-10.0)
[2017-11-17 09:14] LABS: ALBUMIN 3.2 g/dl (3.4-5.0); ANION GAP 7 (8-16); BLOOD UREA NITROGEN 13 mg/dL (7-18); CALCIUM 8.8 mg/dL (8.5-10.1); CHLORIDE 103 mmol/L (98-107); CO2 30 mmol/L (21-32); GLUCOSE,RANDOM 88 mg/dL (74-106); POTASSIUM 4.1 mmol/L (3.5-5.1); SODIUM 140 mmol/L (136-145)
[2017-11-17 09:17] LABS: ALK PHOS 59 U/L (45-117); BILIRUBIN,TOTAL 0.4 mg/dL (0.2-1.0); CREATININE 0.7 mg/dL (0.55-1.02); SGOT/AST 13 U/L (15-37); SGPT/ALT 15 U/L (12-78); TOT PROT 6.6 g/dl (6.4-8.2)
[2017-11-17] MEDS ORDERED: PT OWN MED DRAWER 7, Y5N ONE ×2 (09:37→21:12)
[2017-11-17] MEDS: METOPROLOL SUCCINATE 25 MG TAB.SR.24H (FP) PO SCH (09:39)
[2017-11-17] MEDS: PANTOPRAZOLE 40 MG TABLET (FP) PO SCH (09:39)
[2017-11-17] MEDS: diazePAM 5 MG TABLET PO SCH ×2 (09:39→22:37)
[2017-11-17] MEDS: PREGABALIN 75 MG CAPSULE PO SCH ×2 (09:40→22:37)
[2017-11-17] MEDS: BUDESONIDE/FORMETEROL FUMARATE 160/4.5 mcg INHALER IH SCH ×2 (09:41→22:38)
[2017-11-17] MEDS: HEPARIN NA (PORCINE) 5,000 UNITS/ML 1ML VIAL SQ SCH ×2 (09:41→22:43)
[2017-11-17] MEDS: ROFLUMILAST 500 MCG TABLET PO SCH (09:42)
[2017-11-17] MEDS: ROSUVASTATIN CA 10 MG TABLET (FP) PO SCH (09:44)
--- NOTE | 2017-11-17 12:27 | PN ---
Progress Note (short form) - Note Progress Note: Neurology History of Present Illness Patient is a 72 year old female with a significant past medical history of Arthritis, IBS and COPD, Hypercholesterolemia, Blind left eye, Hiatal hernia and Osteoporosis, who presents to the ED with complaints of right leg pain. She reported rolling onto her right side when she suddenly experienced a sharp pain that began at her right groin and began to shoot down her right leg. She reports being unable to walk since pain began, stating she cried while walking to the bathroom due to right leg pain. She reports taking 2 percocet and 1 valium for pain with minimal relief. She was admitted for further mgmt and has been getting medication. MRI L spine completed and reviewed. Multilevel bulging and herniations. Patient not interested in surgery and not likely to be a good candidate. Is improved and awaiting discharge for today. Active Medications Budesonide/Formoterol Fumarate (Symbicort 160/4.5mcg -) 2 puff IH BID [facility] Last Admin: 11/17/17 09:41 Dose: 2 puff Diazepam (Valium -) 5 mg PO BID [facility] Last Admin: 11/17/17 09:39 Dose: 5 mg Docusate Sodium (Colace -) 100 mg PO BID PRN PRN Reason: CONSTIPATION Fentanyl (Duragesic 50mcg Patch -) 1 patch TD Q72H [facility] Last Admin: 11/16/17 21:27 Dose: 1 patch Heparin Sodium (Porcine) (Heparin -) 5,000 unit SQ BID [facility] Last Admin: 11/17/17 09:41 Dose: Not Given Metoprolol Succinate (Toprol Xl -) 25 mg PO DAILY [facility] Last Admin: 11/17/17 09:39 Dose: Not Given Non-Formulary Medication (Lubiprostone [Amitiza]) 24 mcg PO DAILY PRN PRN Reason: CONSTIPATION Oxycodone HCl (Roxicodone -) 5 mg PO Q4H PRN PRN Reason: PAIN LEVEL 6-10 Last Admin: 11/16/17 18:57 Dose: 5 mg Pantoprazole Sodium (Protonix -) 40 mg PO DAILY [facility] Last Admin: 11/17/17 09:39 Dose: 40 mg Pregabalin (Lyrica -) 75 mg PO BID [facility] Last Admin: 11/17/17 09:40 Dose: 75 mg Roflumilast (Daliresp -) 500 mcg PO DAILY [facility] Last Admin: 11/17/17 09:42 Dose: Not Given Rosuvastatin Calcium (Crestor -) 10 mg PO DAILY [facility] Last Admin: 11/17/17 09:44 Dose: 10 mg Trazodone HCl (Desyrel -) 50 mg PO HS [facility] Last Admin: 11/16/17 21:27 Dose: 50 mg *Physical Exam Vital Signs Temperature 97.8 F 11/17/17 10:00 Pulse Rate 74 11/17/17 10:00 Respiratory Rate 20 11/17/17 10:00 Blood Pressure 94/65 11/17/17 10:00 O2 Sat by Pulse Oximetry (%) 96 11/16/17 21:00 GENERAL: Awake, alert, and fully oriented, in no acute distress HEAD: No signs of trauma EYES: PERRLA, EOMI, sclera anicteric, conjunctiva clear ENT: Auricles normal inspection, hearing grossly normal, nares patent, oropharynx clear without exudates. Moist mucosa NECK: Normal ROM, supple, no lymphadenopathy, JVD, or masses LUNGS: Breath sounds equal, clear to auscultation bilaterally. No wheezes, and no crackles HEART: Regular rate and rhythm, normal S1 and S2, no murmurs, rubs or gallops ABDOMEN: Soft, nontender, normoactive bowel sounds. No guarding, no rebound. No masses EXTREMITIES: R hip with dec ROM due to pain. Slightly internally rotated but not shortened. +Tenderness to proximal femur, R pelvic bones. Remainder of extremities with normal range of motion, no edema. No clubbing or cyanosis. No cords, erythema, or tenderness NEUROLOGICAL: Cranial nerves II through XII grossly intact. Normal speech, RLE 4-/5 at best effort, 5/5 in UE SKIN: Warm, Dry, normal turgor, no rashes or lesions noted. CBCD WBC 3.7 K/mm3 (4.0-10.0) L 11/17/17 07:30 RBC 3.96 M/mm3 (3.60-5.2) 11/17/17 07:30 Hgb 11.6 GM/dL (10.7-15.3) 11/17/17 07:30 Hct 35.6 % (32.4-45.2) 11/17/17 07:30 MCV 89.9 fl (80-96) 11/17/17 07:30 MCHC 32.4 g/dl (32.0-36.0) 11/17/17 07:30 RDW 15.4 % (11.6-15.6) 11/17/17 07:30 Plt Count 183 K/MM3 (134-434) 11/17/17 07:30 MPV 9.2 fl (7.5-11.1) 11/17/17 07:30 CMP Sodium 140 mmol/L (136-145) 11/17/17 07:30 Potassium 4.1 mmol/L (3.5-5.1) 11/17/17 07:30 Chloride 103 mmol/L (98-107) 11/17/17 07:30 Carbon Dioxide 30 mmol/L (21-32) 11/17/17 07:30 Anion Gap 7 (8-16) L 11/17/17 07:30 BUN 13 mg/dL (7-18) 11/17/17 07:30 Creatinine 0.7 mg/dL (0.55-1.02) 11/17/17 07:30 Creat Clearance w eGFR > 60 (>60) 11/17/17 07:30 Calcium 8.8 mg/dL (8.5-10.1) 11/17/17 07:30 Total Bilirubin 0.4 mg/dL (0.2-1.0) 11/17/17 07:30 AST 13 U/L (15-37) L 11/17/17 07:30 ALT 15 U/L (12-78) 11/17/17 07:30 Alkaline Phosphatase 59 U/L (45-117) 11/17/17 07:30 Total Protein 6.6 g/dl (6.4-8.2) 11/17/17 07:30 Albumin 3.2 g/dl (3.4-5.0) L 11/17/17 07:30 MRI L spine reviewed Plan: 72 year old female with a significant past medical history of Arthritis, IBS and COPD, Hypercholesterolemia, Blind left eye, Hiatal hernia and Osteoporosis, who presents to the ED with complaints of right leg pain. She reported rolling onto her right side when she suddenly experienced a sharp pain that began at her right groin and began to shoot down her right leg. She reports being unable to walk since pain began, stating she cried while walking to the bathroom due to right leg pain. MRI L spine completed and reviewed Multilevel bulging and herniations. Patient not interested in surgery and not likely to be a good candidate. May benefit from injections Doing well today, for discharge Pain mgmt recommended, caution with extermination inspector opioid use Fall precautions Physical therapy Patient not interested in rehab
[2017-11-17] MEDS: oxyCODONE HCL 5 MG TABLET PO PRN ×2 (12:32→22:38)
--- NOTE | 2017-11-17 15:56 | PN ---
Progress Note, Physician Chief Complaint: Right groin pain, inability to ambulate History of Present Illness: NAD, in bed, pain is improved seen by Neurology MRI lumbar spine done, awaiting official report not a candidate for surgery, doesn't want surgery or rehab pain management - Current Medication List Current Medications: Active Medications Budesonide/Formoterol Fumarate (Symbicort 160/4.5mcg -) 2 puff IH BID [facility] Last Admin: 11/17/17 09:41 Dose: 2 puff Diazepam (Valium -) 5 mg PO BID [facility] Last Admin: 11/17/17 09:39 Dose: 5 mg Docusate Sodium (Colace -) 100 mg PO BID PRN PRN Reason: CONSTIPATION Fentanyl (Duragesic 50mcg Patch -) 1 patch TD Q72H [facility] Last Admin: 11/16/17 21:27 Dose: 1 patch Heparin Sodium (Porcine) (Heparin -) 5,000 unit SQ BID [facility] Last Admin: 11/17/17 09:41 Dose: Not Given Metoprolol Succinate (Toprol Xl -) 25 mg PO DAILY [facility] Last Admin: 11/17/17 09:39 Dose: Not Given Non-Formulary Medication (Lubiprostone [Amitiza]) 24 mcg PO DAILY PRN PRN Reason: CONSTIPATION Oxycodone HCl (Roxicodone -) 5 mg PO Q4H PRN PRN Reason: PAIN LEVEL 6-10 Last Admin: 11/17/17 12:32 Dose: 5 mg Pantoprazole Sodium (Protonix -) 40 mg PO DAILY [facility] Last Admin: 11/17/17 09:39 Dose: 40 mg Pregabalin (Lyrica -) 75 mg PO BID [facility] Last Admin: 11/17/17 09:40 Dose: 75 mg Roflumilast (Daliresp -) 500 mcg PO DAILY [facility] Last Admin: 11/17/17 09:42 Dose: Not Given Rosuvastatin Calcium (Crestor -) 10 mg PO DAILY [facility] Last Admin: 11/17/17 09:44 Dose: 10 mg Trazodone HCl (Desyrel -) 50 mg PO HS [facility] Last Admin: 11/16/17 21:27 Dose: 50 mg - Objective Vital Signs: Vital Signs Temperature 98.3 F 11/17/17 14:48 Pulse Rate 78 11/17/17 14:48 Respiratory Rate 17 11/17/17 14:48 Blood Pressure 100/60 11/17/17 14:48 O2 Sat by Pulse Oximetry (%) 97 11/17/17 09:00 Constitutional: Yes: Well Nourished, No Distress, Calm Cardiovascular: Yes: Regular Rate and Rhythm Respiratory: Yes: Regular Musculoskeletal: Yes: WNL Extremities: Yes: WNL Edema: No Peripheral Pulses WNL: Yes Neurological: Yes: Alert, Oriented Psychiatric: Yes: Alert, Oriented Labs: CBC, BMP 11/17/17 07:30 11/17/17 07:30 INR, PTT INR 0.96 (0.82-1.09) 11/14/17 18:54 Problem List - Problems (1) Intractable neuropathic pain of right lower extremity Assessment/Plan: -pain management- dosage on fentanyl patch increased - will go home on lyrica, valium, oxycodone and fentanyl patch -MRI reviewed -seen by Neurology Code(s): G57.91 - UNSPECIFIED MONONEUROPATHY OF RIGHT LOWER LIMB Assessment/Plan d/c home
[2017-11-17] MEDS: traZODone HCL 50 MG TABLET (FP) PO SCH (22:37)
[2017-11-18 07:30] VITALS: TEMP 98.1
[2017-11-18] MEDS ORDERED: PT OWN MED DRAWER 7, Y5N ONE (09:28)
[2017-11-18] MEDS: METOPROLOL SUCCINATE 25 MG TAB.SR.24H (FP) PO SCH (10:01)
[2017-11-18] MEDS: PANTOPRAZOLE 40 MG TABLET (FP) PO SCH (10:01)
[2017-11-18] MEDS: HEPARIN NA (PORCINE) 5,000 UNITS/ML 1ML VIAL SQ SCH (10:01)
[2017-11-18] MEDS: ROFLUMILAST 500 MCG TABLET PO SCH (10:02)
[2017-11-18] MEDS: ROSUVASTATIN CA 10 MG TABLET (FP) PO SCH (10:05)
[2017-11-18] MEDS: PREGABALIN 75 MG CAPSULE PO SCH (10:05)
[2017-11-18] MEDS: diazePAM 5 MG TABLET PO SCH (10:05)
[2017-11-18] MEDS: BUDESONIDE/FORMETEROL FUMARATE 160/4.5 mcg INHALER IH SCH (10:06)
[2017-11-18] MEDS: oxyCODONE HCL 5 MG TABLET PO PRN (10:10)
[2017-11-18 11:52] VITALS: BP 111/72; PULSE 84
--- NOTE | 2017-11-18 12:54 | PN ---
Progress Note (short form) - Note Progress Note: Neurology History of Present Illness Patient is a 72 year old female with a significant past medical history of Arthritis, IBS and COPD, Hypercholesterolemia, Blind left eye, Hiatal hernia and Osteoporosis, who presents to the ED with complaints of right leg pain. She reported rolling onto her right side when she suddenly experienced a sharp pain that began at her right groin and began to shoot down her right leg. She reports being unable to walk since pain began, stating she cried while walking to the bathroom due to right leg pain. She reports taking 2 percocet and 1 valium for pain with minimal relief. She was admitted for further mgmt and has been getting medication. MRI L spine completed and reviewed. Multilevel bulging and herniations. Patient not interested in surgery and not likely to be a good candidate. Is improved and awaiting discharge for today. Spoke in detail at bedside. Also consider seeing ortho for ongoing heel pains. Frustrated that percocept was decreased. Otherwise, at baseline. Active Medications Budesonide/Formoterol Fumarate (Symbicort 160/4.5mcg -) 2 puff IH BID [facility] Last Admin: 11/18/17 10:06 Dose: 2 puff Diazepam (Valium -) 5 mg PO BID [facility] Last Admin: 11/18/17 10:05 Dose: 5 mg Docusate Sodium (Colace -) 100 mg PO BID PRN PRN Reason: CONSTIPATION Fentanyl (Duragesic 50mcg Patch -) 1 patch TD Q72H [facility] Last Admin: 11/16/17 21:27 Dose: 1 patch Heparin Sodium (Porcine) (Heparin -) 5,000 unit SQ BID [facility] Last Admin: 11/18/17 10:01 Dose: Not Given Metoprolol Succinate (Toprol Xl -) 25 mg PO DAILY [facility] Last Admin: 11/18/17 10:01 Dose: Not Given Non-Formulary Medication (Lubiprostone [Amitiza]) 24 mcg PO DAILY PRN PRN Reason: CONSTIPATION Oxycodone HCl (Roxicodone -) 5 mg PO Q4H PRN PRN Reason: PAIN LEVEL 6-10 Last Admin: 11/18/17 10:10 Dose: 5 mg Pantoprazole Sodium (Protonix -) 40 mg PO DAILY [facility] Last Admin: 11/18/17 10:01 Dose: Not Given Pregabalin (Lyrica -) 75 mg PO BID [facility] Last Admin: 11/18/17 10:05 Dose: 75 mg Roflumilast (Daliresp -) 500 mcg PO DAILY [facility] Last Admin: 11/18/17 10:02 Dose: Not Given Rosuvastatin Calcium (Crestor -) 10 mg PO DAILY [facility] Last Admin: 11/18/17 10:05 Dose: 10 mg Trazodone HCl (Desyrel -) 50 mg PO HS [facility] Last Admin: 11/17/17 22:37 Dose: 50 mg *Physical Exam Vital Signs Period Temp Pulse Resp BP Sys/Martinez Pulse Ox Last 24 Hr 97.8 F-98.3 F 74-84 17-20 100-115/51-72 97 GENERAL: Awake, alert, and fully oriented, in no acute distress HEAD: No signs of trauma EYES: PERRLA, EOMI, sclera anicteric, conjunctiva clear ENT: Auricles normal inspection, hearing grossly normal, nares patent, oropharynx clear without exudates. Moist mucosa NECK: Normal ROM, supple, no lymphadenopathy, JVD, or masses LUNGS: Breath sounds equal, clear to auscultation bilaterally. No wheezes, and no crackles HEART: Regular rate and rhythm, normal S1 and S2, no murmurs, rubs or gallops ABDOMEN: Soft, nontender, normoactive bowel sounds. No guarding, no rebound. No masses EXTREMITIES: R hip with dec ROM due to pain. Slightly internally rotated but not shortened. +Tenderness to proximal femur, R pelvic bones. Remainder of extremities with normal range of motion, no edema. No clubbing or cyanosis. No cords, erythema, or tenderness NEUROLOGICAL: Cranial nerves II through XII grossly intact. Normal speech, RLE 4-/5 at best effort, 5/5 in UE SKIN: Warm, Dry, normal turgor, no rashes or lesions noted. CBCD WBC 3.7 K/mm3 (4.0-10.0) L 11/17/17 07:30 RBC 3.96 M/mm3 (3.60-5.2) 11/17/17 07:30 Hgb 11.6 GM/dL (10.7-15.3) 11/17/17 07:30 Hct 35.6 % (32.4-45.2) 11/17/17 07:30 MCV 89.9 fl (80-96) 11/17/17 07:30 MCHC 32.4 g/dl (32.0-36.0) 11/17/17 07:30 RDW 15.4 % (11.6-15.6) 11/17/17 07:30 Plt Count 183 K/MM3 (134-434) 11/17/17 07:30 MPV 9.2 fl (7.5-11.1) 11/17/17 07:30 CMP Sodium 140 mmol/L (136-145) 11/17/17 07:30 Potassium 4.1 mmol/L (3.5-5.1) 11/17/17 07:30 Chloride 103 mmol/L (98-107) 11/17/17 07:30 Carbon Dioxide 30 mmol/L (21-32) 11/17/17 07:30 Anion Gap 7 (8-16) L 11/17/17 07:30 BUN 13 mg/dL (7-18) 11/17/17 07:30 Creatinine 0.7 mg/dL (0.55-1.02) 11/17/17 07:30 Creat Clearance w eGFR > 60 (>60) 11/17/17 07:30 Calcium 8.8 mg/dL (8.5-10.1) 11/17/17 07:30 Total Bilirubin 0.4 mg/dL (0.2-1.0) 11/17/17 07:30 AST 13 U/L (15-37) L 11/17/17 07:30 ALT 15 U/L (12-78) 11/17/17 07:30 Alkaline Phosphatase 59 U/L (45-117) 11/17/17 07:30 Total Protein 6.6 g/dl (6.4-8.2) 11/17/17 07:30 Albumin 3.2 g/dl (3.4-5.0) L 11/17/17 07:30 MRI L spine reviewed Plan: 72 year old female with a significant past medical history of Arthritis, IBS and COPD, Hypercholesterolemia, Blind left eye, Hiatal hernia and Osteoporosis, who presents to the ED with complaints of right leg pain. She reported rolling onto her right side when she suddenly experienced a sharp pain that began at her right groin and began to shoot down her right leg. She reports being unable to walk since pain began, stating she cried while walking to the bathroom due to right leg pain. MRI L spine completed and reviewed Multilevel bulging and herniations. Patient not interested in surgery and not likely to be a good candidate. May benefit from injections Doing well today, for discharge Pain mgmt recommended, caution with residential opioid use Fall precautions Physical therapy Patient not interested in rehab
[2017-11-18] MEDS ORDERED: fentaNYL 50mcg/hr PATCH.TD72 TD SCH (20:00)
== END 2017-11-18 14:26 | disposition home health service (06) | DRG 552 ==
LOC: JER 16:43 → JERBED 23:55 → J5S 11-15 17:38
PROVIDERS: ADMIT Internal Medicine; ATTEND Family Medicine
DX: M51.06 Intervertebral disc disorders with myelopathy, lumbar region (principal); G57.81 Other specified mononeuropathies of right lower limb; M81.0 Age-related osteoporosis without current pathological fracture; J43.9 Emphysema, unspecified; E78.5 Hyperlipidemia, unspecified; H54.62 Unqualified visual loss, left eye, normal vision right eye; F17.210 Nicotine dependence, cigarettes, uncomplicated
CPT/HCPCS: 36415; 71045-TC; 72148-TC; 73523-TC; 80053; 85025; 85610; 93005; 93010; 97116-GP; 97161-GP; 99285-25; J1644

== ENCOUNTER 2018-12-18 15:46 | Observation (INO) | payer OTHER ==
--- NOTE | 2018-12-18 17:13 | PDOC ---
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 Pt states after she woke up this AM, she attempted to go to the bathroom. There was a table next to her bed, and "the next thing she knew she fell on the floor ". The pt is unsure if she had a mechanical fall, but believes she had no LOC. She does not take any anti-coagulant medication. The table fell in front on the door, so it took her son "quite a while" before he could get to her. She currently complaints of mild headache, pain over her R elbow with abrasions over the R arm, and under the R breast along her chest wall. The pt did not take any medications for pain prior to the ER, but she did clean her R elbow and apply bacitracin ointment. Pt states over the past week, her son has noticed "she is saying things that don't make sense" and has been more forgetful. Pt has been tolerating PO intake lately with no difficulty. Pt denies any recent fevers/chills, headache, vision changes, syncope, chest pain, palpitations, SOB, nausea/vomiting, abdominal pain, urinary symptoms, diarrhea/ constipation, or leg swelling. Social: Pt denies any cigarette, alcohol, or drug use. Pt denies any recent travel or sick contacts. Surgical: no relevant history. Family: no relevant history. 12/18/18 19:15 Past History - Travel Traveled outside of the country in the last 30 days: No Close contact w/someone who was outside of country & ill: No - Past Medical History Allergies/Adverse Reactions: Allergies Allergy/AdvReac Type Severity Reaction Status Date / Time morphine Allergy Verified 12/18/18 15:50 nalbuphine HCl [From Nubain] Allergy Verified 12/18/18 15:50 Sulfa (Sulfonamide Allergy Verified 12/18/18 15:50 Antibiotics) Home Medications: Ambulatory Orders Calcium (Oyster Shell) [Os-Petey 500MG -] 500 mg PO BID 08/22/13 FENTANYL 50mcg PATCH [DURAGESIC 50 mcg PATCH -] 1 each TD Q72H 08/22/13 Lubiprostone [Amitiza] 24 mcg PO DAILY PRN 08/22/13 Multivitamin [Multivitamins] 1 each PO DAILY 08/22/13 Roflumilast [Daliresp -] 500 mcg PO DAILY 08/22/13 Metoprolol Succinate [Toprol XL -] 25 mg PO DAILY #0 tab.sr.24h 08/28/13 Pyridoxine HCl (B-6) [Vitamin B6 -] 100 mg PO DAILY #0 tablet 08/28/13 Albuterol Sulfate [Proair Hfa -] 1 - 2 inh PO TID 12/15/13 Budesonide/Formeterol Fumarate [SYMBICORT 160/4.5mcg -] 2 inh PO BID 12/15/13 Rosuvastatin Calcium [Crestor] 10 mg PO DAILY 06/03/14 Acetaminophen [Tylenol .Extra-Strength -] 1,000 mg PO Q6H 05/26/15 Diazepam [Valium] 5 mg PO BID 05/26/15 Pregabalin [Lyrica -] 75 mg PO TID 05/26/15 traZODone HCL [Trazodone HCl] 50 mg PO HS 11/15/17 Docusate Sodium [Colace -] 100 mg PO BID PRN #30 capsule 11/17/17 Pantoprazole Sodium [Protonix -] 40 mg PO DAILY #30 tablet.ec 11/17/17 oxyCODONE HCL [Roxicodone -] 5 mg PO Q4H PRN 5 Days #30 tablet MDD 6 11/17/17 traZODone HCL [Desyrel -] 50 mg PO HS #30 tablet 11/17/17 Anemia: No Asthma: No Cancer: No Cardiac Disorders: No CVA: No COPD: Yes (emphysema) CHF: No Dementia: No Diabetes: No GI Disorders: Yes (HIATAL HERNIA) 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) HTN: No Hypercholesterolemia: Yes Liver Disease: No Seizures: No Thyroid Disease: No - Surgical History Abdominal Surgery: No Appendectomy: No Cardiac Surgery: No Cholecystectomy: No Lung Surgery: Yes (SURGERY OF LUNG NODULES) Neurologic Surgery: No Orthopedic Surgery: No - Suicide/Smoking/Psychosocial Hx Smoking Status: Yes Smoking History: Former smoker Have you smoked in the past 12 months: No Number of Cigarettes Smoked Daily: 5 If you are a former smoker, when did you quit?: t-7 Information on smoking cessation initiated: No 'Breaking Loose' booklet given: 12/16/13 Hx Alcohol Use: No Drug/Substance Use Hx: No Substance Use Type: None Hx Substance Use Treatment: No Review of Systems - Review of Systems Able to Perform ROS?: Yes Is the patient limited Afghan proficient: No Constitutional: Yes: Weight Stable. No: Chills, Diaphoresis, Fever, Loss of Appetite, Malaise, Weakness HEENTM: Yes: Ocular Prothesis. No: Blurred Vision, Recent change in vision, Nose Congestion, Throat Pain, Throat Swelling, Difficulty Swallowing Respiratory: No: Cough, Shortness of Breath Cardiac (ROS): Yes: See HPI, Lightheadedness, Syncope. No: Chest Pain, Edema, Irregular Heart Rate, Palpitations, Chest Tightness ABD/GI: No: Constipated, Diarrhea, Nausea, Poor Appetite, Poor Fluid Intake, Vomiting : No: Burning, Dysuria, Frequency, Pain, Urgency Musculoskeletal: Yes: Back Pain (chronic). No: Joint Pain, Joint Swelling, Muscle Weakness, Neck Pain Integumentary: Yes: Bruising (over her arms b/l after fall). No: Rash Neurological: Yes: Headache (mild, since fall). No: Numbness, Paresthesia, Seizure, Weakness, Unsteady Gait, Ataxia, Dizziness Psychiatric: No: Sleep Pattern Change, Change in Appetite Endocrine: No: Increased Urine, Change in Weight Hematologic/Lymphatic: No: Anemia, Blood Clots, Easy Bleeding, Easy Bruising All Other Systems: Reviewed and Negative *Physical Exam - Vital Signs Last Vital Signs Temp Pulse Resp BP Pulse Ox 98 F 65 18 147/95 97 12/18/18 15:58 12/18/18 15:58 12/18/18 15:58 12/18/18 15:58 12/18/18 15:58 - Physical Exam Comments: Vitals stable, pt afebrile. Pt in NAD, thin body habitus. PE showed pt alert and oriented. consultant intern generally intact, muscular strength and sensation intact. No midline neck tenderness to palpation, pt can flex and extend neck with no difficulty. Eyes PERRLA and EOMI on the R, L eye is prosthesis. Oropharynx without erythema or exudates, no LAD b/l. No nasal congestion, hearing intact. Clear heart sounds, S1/S2, no JVD, b/l pedal edema, or heart murmur. Tenderness to palpation over R ribs, inferior to R breast, mid-clavicular line, no obvious step-offs or crepitus. Clear lung sounds, no respiratory distress, wheezes, crackles, or accessory muscle use. No abdominal or CVA tenderness to palpation, no rebound, no guarding. Abdomen soft, non-distended, and with normoactive bowel sounds. Skin without jaundice or rash. Multiple superficial skin tears over R lateral elbow, appear clean with no foreign body or debris. No other extremity tenderness to palpation. 12/18/18 19:23 Moderate Sedation - Procedure Monitoring Vital Signs: Procedure Monitoring Vital Signs Temperature 98 F 12/18/18 15:58 Pulse Rate 65 12/18/18 15:58 Respiratory Rate 18 12/18/18 15:58 Blood Pressure 147/95 12/18/18 15:58 O2 Sat by Pulse Oximetry (%) 97 12/18/18 15:58 Procedures - Laceration/Wound Repair Right Lateral Elbow Wound Length: 7.6 to 12.5 cm Wound Explored: clean Wound's Depth, Shape: superficial (superficial skin abrasions) Irrigated w/ Saline: Yes Betadine Prep: Yes Wound Debrided: minimal Number of Sutures: 0 Sterile Dressing Applied: Yes Splint Applied: No Sling Applied: No Progress: Multiple superficial skin abrasions located over lateral left elbow (unable to suture). Pt had already cleaned and applied bacitracin before coming to the ER. Area was pressure washed with sterile saline and betadine. Xeroform moist dressing was applied with sterile dressing and krilex wrap over the xeroform. Pt pain and bleeding controlled. 12/18/18 18:51 ED Treatment Course - LABORATORY CBC & Chemistry Diagram: 12/18/18 17:45 12/18/18 17:45 Medical Decision Making - Medical Decision Making Pt was seen at bedside, also will be seen by attending Dr. Barron. Pt presenting after a fall "this morning". Pt states after she woke up this AM, she attempted to go to the bathroom. There was a table next to her bed, and " the next thing she knew she fell on the floor". The pt is unsure if she had a mechanical fall, but believes she had no LOC. She currently complaints of mild headache, pain over her R elbow with abrasions over the R arm, and under the R breast along her chest wall. The pt did not take any medications for pain prior to the ER, but she did clean her R elbow and apply bacitracin ointment. Pt states over the past week, her son has noticed "she is saying things that don't make sense" and has been more forgetful. Pt has been tolerating PO intake lately with no difficulty. Pt denies any recent fevers/chills, headache, vision changes, syncope, chest pain, palpitations, SOB, nausea/vomiting, abdominal pain , urinary symptoms, diarrhea/constipation, or leg swelling. Vitals stable, pt afebrile. Pt in NAD, thin body habitus. PE showed pt alert and oriented. consultant intern generally intact, muscular strength and sensation intact. No midline neck tenderness to palpation, pt can flex and extend neck with no difficulty. Eyes PERRLA and EOMI on the R, L eye is prosthesis. Oropharynx without erythema or exudates, no LAD b/l. No nasal congestion, hearing intact. Clear heart sounds, S1/S2, no JVD, b/l pedal edema, or heart murmur. Tenderness to palpation over R ribs, inferior to R breast, mid-clavicular line, no obvious step-offs or crepitus. Clear lung sounds, no respiratory distress, wheezes, crackles, or accessory muscle use. No abdominal or CVA tenderness to palpation, no rebound, no guarding. Abdomen soft, non-distended, and with normoactive bowel sounds. Skin without jaundice or rash. Multiple superficial skin tears over R lateral elbow, appear clean with no foreign body or debris. No other extremity tenderness to palpation. Considering mechanical fall vs syncopal episode-- broad work-up including infection (UA), electrolyte imbalances, head stroke/bleed, cardiac/ACS -- will obtain imaging to r/o fractures or bleeds 2/2 to fall. Ordered work-up including CBC, CMP, Mg, cardiac profile, ECG, coags, UA, urine culture, x-ray of R rib series, x-ray of R forearm, non-contrast CT head and C- spine. Provided 500 mL IV NS, 1 g ofirmev, and boostrix for improvement of pain, dehydration, and tetanus control. Will continue to reassess pt and monitor for symptomatic improvement. Superficial skin abrasions over R lateral elbow were cleaned and wrapped with sterile dressing ECG: NSR, intervals WNL. No TWIs or significant ST segment changes. No significant changes from prior ECG. 12/18/18 18:49 CBC and CMP generally WNL. Mg 1.6. Pt signed out to next resident team. Explained presentation, ED course, any pending results, and needed interventions to resident Dr. Pedro. 12/18/18 19:10 *DC/Admit/Observation/Transfer Diagnosis at time of Disposition: Fall Qualifiers: Encounter type: initial encounter Qualified Code(s): W19.XXXA - Unspecified fall, initial encounter - Discharge Dispostion Condition at time of disposition: Stable - Referrals Referrals: Rashad Keen MD [Primary Care Provider] - - Patient Instructions - Post Discharge Activity
[2018-12-18] MEDS ORDERED: ACETAMINOPHEN 1000 MG/100 ML VIAL (NON FORMULARY) IVPB ONE (17:49)
[2018-12-18] MEDS ORDERED: SODIUM CHLORIDE 500 ML IV STA (17:49)
[2018-12-18] MEDS ORDERED: DIPHTH,PERTUSS(ACELL),TET 0.5 ML DISP.SYRIN IM ONE ×2 (17:55→19:43)
[2018-12-18 17:58] LABS: BASO % 0.8 % (0-2.0); EOS % 2.4 % (0-4.5); HEMATOCRIT 31.7 % (32.4-45.2); HEMOGLOBIN 11.2 GM/dL (10.7-15.3); LYMPH % 28.2 % (8-40); MCH 32.6 pg (25.7-33.7); MCHC 35.3 g/dl (32.0-36.0); MEAN CELL VOLUME 92.6 fl (80-96); MEAN PLT VOLUME 8.5 fl (7.5-11.1); MONO % 5.6 % (3.8-10.2); PLATELET COUNT 164 K/MM3 (134-434); RBC 3.42 M/mm3 (3.60-5.2); RDW 13.2 % (11.6-15.6); WHITE BLOOD COUNT 7.4 K/mm3 (4.0-10.0)
[2018-12-18] MEDS ORDERED: BACITRACIN 15 GM TUBE TOPICAL OINTMENT TP ONE (18:32)
[2018-12-18] MEDS ORDERED: BACITRACIN 0.9 GM PACKET ONE (18:35)
[2018-12-18 18:38] LABS: ALBUMIN 3.4 g/dl (3.4-5.0); ALK PHOS 57 U/L (45-117); ANION GAP 5 MMOL/L (8-16); BILIRUBIN,TOTAL 0.3 mg/dL (0.2-1); BLOOD UREA NITROGEN 13 mg/dL (7-18); CALCIUM 8.4 mg/dL (8.5-10.1); CHLORIDE 104 mmol/L (98-107); CO2 29 mmol/L (21-32); CREATININE 0.8 mg/dL (0.55-1.3); GLUCOSE,RANDOM 76 mg/dL (74-106); MAGNESIUM 1.6 mg/dL (1.8-2.4); POTASSIUM 4.5 mmol/L (3.5-5.1); SGOT/AST 9 U/L (15-37); SGPT/ALT 12 U/L (13-61); SODIUM 138 mmol/L (136-145); TOT PROT 6.4 g/dl (6.4-8.2)
[2018-12-18 18:50] LABS: URINE APPEARANCE CLEAR; URINE BILIRUBIN NEGATIVE (<2.0 mg/dL); URINE COLOR LTYELLOW; URINE GLUCOSE (UA) NEGATIVE (NEGATIVE); URINE KETONE NEGATIVE (NEGATIVE); URINE LEUK ESTERASE 2+ (NEGATIVE); URINE NITRITE NEGATIVE (NEGATIVE); URINE PROTEIN NEGATIVE (NEGATIVE); URINE UROBILINOGEN NEGATIVE mg/dL (0.2-1.0)
[2018-12-18 19:06] LABS: INR 1.02 (0.83-1.09)
[2018-12-18 19:13] LABS: EPI CELLS RARE /HPF (FEW); URINE BACTERIA RARE /hpf (NONE SEEN)
[2018-12-18] MEDS ORDERED: ALBUTEROL SO4 2.5/IPRATROPIUM 0.5 INH SOL 3 ML VIAL.NEB. NEB ONE ×2 (19:31→19:43)
--- NOTE | 2018-12-18 19:38 | PDOC ---
Attending Attestation - Resident Resident Name: Elen Gutierrez - ED Attending Attestation I have performed the following: I have examined & evaluated the patient, The case was reviewed & discussed with the resident, I agree w/resident's findings & plan, Exceptions are as noted - HPI HPI: 12/18/18 19:32 73-year-old female history of COPD, hypertension, chronic back pain followed by pain management for osteoarthritis here today with a syncopal episode. Patient states she was lying bed she does most the time she heard a noise move the living room suddenly jumped up and then describes overwhelming feeling of generalized weakness and lightheadedness. She knew she was on the floor. Does believe that she fell forward she thinks she may have hit her head complaining of right rib pain and chronic low back pain as well as an abrasion to her right elbow. States that this happened earlier this a.m. she called Dr. Keen who told her to come to the ED. She had thing she had to take care of at home and presents later this evening. Denies precipitating chest pain or shortness of breath. No focal weakness no changed her speech neurologically she feels like she is at baseline was ambulatory following the episode states she did not take any abnormal amounts of pain medication. Describes taking a Lyrica, Valium, and 2 sinus medications on the night prior to the episode patient also wears a fentanyl patch - Physicial Exam PE: 12/18/18 19:35 Awake alert no acute distress. There is facial asymmetry which is chronic patient has a left eye lid palsy. Lungs are with bilateral wheezes and poor aeration heart is regular without any murmurs rubs or gallops abdomen is soft nontender extremities are warm and well-perfused. There is abrasion to the right elbow but range of motion is intact of the elbow shoulder and wrist. Hips are stable and nontender. Patient has tenderness over her right lateral chest wall no crepitus no step-offs no ecchymosis overlying it. Skin is otherwise as described and the remainder is intact neurologically patient is alert and oriented 3 strength is 5 out of 5 all 4 extremities speech is clear - Medical Decision Making 12/18/18 19:37 Differential diagnosis includes syncope, weakness, overmedication, severe COPD vasovagal syncope dysrhythmia anemia dehydration cardiac dysrhythmia. Plan EKG CT had chest x-ray labs troponin. We'll give the patient albuterol neb for her wheezing. She is requesting pain medication for her rib pain will be given her home dose of Percocet which is 10/325. Patient will require admission to telemetry for further evaluation Heart Score/ECG Review #1 General ECG Interpretation: Sinus Rhythm, Normal Rate (61), Normal Intervals, No acute ischemic changes
[2018-12-18] MEDS ORDERED: ACETAMINOPHEN INJECTION 100 ML IVPB ONE (19:43)
--- NOTE | 2018-12-18 22:36 | HP ---
Admitting History and Physical - Primary Care Physician PCP: Rashad Keen I - Admission Chief Complaint: Syncope, Fall History of Present Illness: This is a 73 y/o woman with a past medical history of: Chronic Back Pain (sees pain management), HTN, HLD, COPD, IBS, Hiatal Hernia, Blindness L- Eye(L- Eye Prosthesis). Who presents to the ED syncopal, fall x today. Patient reports attempting to walk to the bathroom, finding herself on the floor. She reports hitting into the bedside table knocking her tea, water and pain meds. She reports cleaning up the floor and having her son help her get back onto the bed. Patient reports mild headache, R- elbow pain, abrasions and R- breast pain. Patient denies fever, chills, cough, SOB, CP, palpitations, AP, N/V/D, dysuria ER course notable for: (1) Head CT- neg ICH (2) C- Spine- neg fx (3) Troponin I- neg History Source: Patient Limitations to Obtaining History: No Limitations - Past Medical History Cardiovascular: Yes: HTN, Hyperlipdemia Pulmonary: Yes: COPD Gastrointestinal: Yes: Hiatal Hernia, Irritable Bowel Disease Musculoskeletal: Yes: Chronic low back pain Additional Past Medical History: Left Eye Blindness (L- Prosthesis) - Smoking History Smoking history: Former smoker Have you smoked in the past 12 months: No Aproximately how many cigarettes per day: 5 If you are a former smoker, when did you quit?: t-7 - Alcohol/Substance Use Hx Alcohol Use: No Home Medications - Allergies Allergies/Adverse Reactions: Allergies Allergy/AdvReac Type Severity Reaction Status Date / Time morphine Allergy Verified 12/18/18 15:50 nalbuphine HCl [From Nubain] Allergy Verified 12/18/18 15:50 Sulfa (Sulfonamide Allergy Verified 12/18/18 15:50 Antibiotics) - Home Medications Home Medications: Ambulatory Orders Calcium (Oyster Shell) [Os-Petey 500MG -] 500 mg PO BID 08/22/13 FENTANYL 50mcg PATCH [DURAGESIC 50 mcg PATCH -] 1 each TD Q72H 08/22/13 Lubiprostone [Amitiza] 24 mcg PO DAILY PRN 08/22/13 Multivitamin [Multivitamins] 1 each PO DAILY 08/22/13 Roflumilast [Daliresp -] 500 mcg PO DAILY 08/22/13 Metoprolol Succinate [Toprol XL -] 25 mg PO DAILY #0 tab.sr.24h 08/28/13 Pyridoxine HCl (B-6) [Vitamin B6 -] 100 mg PO DAILY #0 tablet 08/28/13 Albuterol Sulfate [Proair Hfa -] 1 - 2 inh PO TID 12/15/13 Budesonide/Formeterol Fumarate [SYMBICORT 160/4.5mcg -] 2 inh PO BID 12/15/13 Rosuvastatin Calcium [Crestor] 10 mg PO DAILY 06/03/14 Acetaminophen [Tylenol .Extra-Strength -] 1,000 mg PO Q6H 05/26/15 Diazepam [Valium] 5 mg PO BID 05/26/15 Pregabalin [Lyrica -] 75 mg PO TID 05/26/15 traZODone HCL [Trazodone HCl] 50 mg PO HS 11/15/17 Docusate Sodium [Colace -] 100 mg PO BID PRN #30 capsule 11/17/17 Pantoprazole Sodium [Protonix -] 40 mg PO DAILY #30 tablet.ec 11/17/17 oxyCODONE HCL [Roxicodone -] 5 mg PO Q4H PRN 5 Days #30 tablet MDD 6 11/17/17 traZODone HCL [Desyrel -] 50 mg PO HS #30 tablet 11/17/17 Family Disease History - Family Disease History Family History: Unable to Obtain Review of Systems - Review of Systems Constitutional: reports: Malaise Eyes: reports: No Symptoms HENT: reports: No Symptoms Neck: reports: No Symptoms Cardiovascular: reports: No Symptoms Respiratory: reports: No Symptoms Gastrointestinal: reports: No Symptoms Genitourinary: reports: No Symptoms Breasts: reports: No Symptoms Reported Musculoskeletal: reports: Back Pain Integumentary: reports: Bruising (right elbow), Wound (right elbow) Neurological: reports: Dizziness, Syncope, Unsteady Gait Endocrine: reports: No Symptoms Hematology/Lymphatic: reports: No Symptoms Psychiatric: reports: No Symptoms Pain Intensity: 4 Physical Examination Vital Signs: Vital Signs Temperature 98 F 12/18/18 15:58 Pulse Rate 80 12/18/18 19:14 Respiratory Rate 18 12/18/18 19:14 Blood Pressure 145/86 12/18/18 19:14 O2 Sat by Pulse Oximetry (%) 97 12/18/18 19:14 Constitutional: Yes: Anxious, Cachectic Eyes: Yes: Conjunctiva Clear (right), EOM Intact (right), Occular Prosthesis ( left eye), PERRL (right) HENT: Yes: WNL, Atraumatic, Normocephalic Neck: Yes: WNL, Supple, Trachea Midline Cardiovascular: Yes: WNL, Regular Rate and Rhythm, S1, S2 Respiratory: Yes: WNL, Regular, CTA Bilaterally Gastrointestinal: Yes: WNL, Normal Bowel Sounds, Soft Breast(s): Yes: WNL Musculoskeletal: Yes: Back Pain Extremities: Yes: WNL Edema: No Peripheral Pulses WNL: Yes Integumentary: Yes: Bruising (right elbow), Skin Tear (right elbow) Wound/Incision: Yes: Dressing Dry and Intact Neurological: Yes: WNL, Alert, Oriented, Cran Nerves II-XII Intact ...Motor Strength: WNL Psychiatric: Yes: WNL, Alert, Oriented Labs: CBC, BMP 12/18/18 17:45 12/18/18 17:45 Current Medications Generic Name Dose Route Start Last Admin Trade Name Freq PRN Reason Stop Dose Admin Albuterol Sulfate 2 puff 12/18/18 23:54 Ventolin Hfa Inhaler - IH Q8H PRN SHORT OF BREATH/WHEEZING Budesonide/Formoterol Fumarate 2 puff 12/18/18 23:45 12/19/18 02:58 Symbicort 160/4.5mcg - IH Not Given BID [facility] Calcium Carbonate 500 mg 12/19/18 10:00 Os-Petey 500mg - PO BID [facility] Diazepam 5 mg 12/18/18 23:45 12/19/18 00:10 Valium - PO 5 mg BID [facility] Administration Docusate Sodium 100 mg 12/18/18 23:54 Colace - PO BID PRN CONSTIPATION Fentanyl 1 patch 12/21/18 10:00 Duragesic 50mcg Patch - TD Q72H [facility] Miscellaneous 1 each 12/21/18 10:00 Duragesic Patch Waste TD PRN PRN PATCH REMOVAL Multivitamins/Minerals/Vitamin C 1 tab 12/19/18 10:00 Tab-A-Vit - PO DAILY [facility] Oxycodone HCl 5 mg 02/20/19 23:54 Roxicodone - PO Q4H PRN PAIN LEVEL 6-10 Pantoprazole Sodium 40 mg 12/19/18 10:00 Protonix - PO DAILY [facility] Pregabalin 75 mg 12/19/18 06:00 12/19/18 06:40 Lyrica - PO 75 mg TID [facility] Administration Pyridoxine HCl 100 mg 12/19/18 10:00 Vitamin B6 - PO DAILY [facility] Roflumilast 500 mcg 12/19/18 10:00 Daliresp - PO DAILY [facility] Rosuvastatin Calcium 10 mg 12/19/18 22:00 Crestor - PO HS [facility] Trazodone HCl 50 mg 12/19/18 22:00 Desyrel - PO HS [facility] Imaging - Results Chest X-ray: Image Reviewed X-ray: Image Reviewed Cat Scan: Image Reviewed EKG: Image Reviewed Problem List - Problems (1) Syncope Assessment/Plan: Likely secondary to arrhythmia vs poly pharmacy Cardiac monitoring Serial Enzymes Appreciate Cardiology consult Head CT- neg ICH Echo Carotid Doppler r/o Stenosis Fall precautions Monitor CBC, BMP Code(s): R55 - SYNCOPE AND COLLAPSE (2) Fall Assessment/Plan: ?Mechanical Head CT- neg ICH Rib Series- neg fx R- Elbow Xray- neg fx Chest Xray- no acute process Consider PT eval Tylenol prn Fall Precautions Review home meds concern for poly pharmacy- pain meds Code(s): W19.XXXA - UNSPECIFIED FALL, INITIAL ENCOUNTER Qualifiers: Encounter type: initial encounter Qualified Code(s): W19.XXXA - Unspecified fall, initial encounter (3) Skin tear of elbow without complication Assessment/Plan: Secondary to fall tDap given in ED Wound care daily Code(s): S51.019A - LACERATION WITHOUT FOREIGN BODY OF UNSP ELBOW, INIT ENCNTR (4) Chronic back pain Assessment/Plan: Continue home meds f/u with pain management Code(s): M54.9 - DORSALGIA, UNSPECIFIED; G89.29 - OTHER CHRONIC PAIN (5) COPD (chronic obstructive pulmonary disease) Assessment/Plan: stable no acute flare continue home meds Code(s): J44.9 - CHRONIC OBSTRUCTIVE PULMONARY DISEASE, UNSPECIFIED (6) HLD (hyperlipidemia) Assessment/Plan: stable Continue Lipitor Monitor LFTs Code(s): E78.5 - HYPERLIPIDEMIA, UNSPECIFIED (7) HTN (hypertension) Assessment/Plan: stable Monitor BP Continue home meds Code(s): I10 - ESSENTIAL (PRIMARY) HYPERTENSION (8) Intractable neuropathic pain of right lower extremity Assessment/Plan: Continue Lyrica Code(s): G57.91 - UNSPECIFIED MONONEUROPATHY OF RIGHT LOWER LIMB Assessment/Plan This is a 73 y/o woman placed in Tele Observation for Syncope, Fall at home for further evaluation of their emergent condition. Plan: See Problem List FEN PO fluids as tolerated Replete lytes prn Low Na Diet DVT ppx OOB SCDs Consider AC if LOS > 48hrs Dispo: Observation Visit type - Emergency Visit Emergency Visit: Yes ED Registration Date: 12/18/18 Care time: The patient presented to the Emergency Department on the above date and was hospitalized for further evaluation of their emergent condition. - New Patient This patient is new to me today: Yes Date on this admission: 12/18/18 - Critical Care Critical Care patient: No
[2018-12-18] MEDS ORDERED: HYDROmorphone HCL 2 MG TABLET PO ONE (23:20)
[2018-12-18] MEDS ORDERED: HYDROmorphone HCL 2 MG TABLET ONE (23:28)
[2018-12-18] MEDS ORDERED: DOCUSATE SODIUM 100 MG CAPSULE (FP) PO PRN (23:54)
[2018-12-18] MEDS ORDERED: oxyCODONE HCL 5 MG TABLET PO PRN (23:54)
[2018-12-18] MEDS ORDERED: ALBUTEROL SO4 8 GM HFA INHALER IH PRN (23:54)
[2018-12-19] MEDS: diazePAM 5 MG TABLET PO SCH ×3 (00:10→23:02)
[2018-12-19] MEDS: BUDESONIDE/FORMETEROL FUMARATE 160/4.5 mcg INHALER IH SCH ×3 (02:58→23:02)
[2018-12-19 05:43] LABS: BASO % 0.9 % (0-2.0); EOS % 3.7 % (0-4.5); HEMOGLOBIN 10.3 GM/dL (10.7-15.3); LYMPH % 28.8 % (8-40); MCH 32.1 pg (25.7-33.7); MCHC 34.4 g/dl (32.0-36.0); MEAN CELL VOLUME 93.2 fl (80-96); MEAN PLT VOLUME 8.9 fl (7.5-11.1); MONO % 5.2 % (3.8-10.2); NEUT % 61.4 % (42.8-82.8); PLATELET COUNT 166 K/MM3 (134-434); RBC 3.22 M/mm3 (3.60-5.2); RDW 13.1 % (11.6-15.6); WHITE BLOOD COUNT 7.2 K/mm3 (4.0-10.0)
[2018-12-19 06:12] LABS: ANION GAP 5 MMOL/L (8-16); BLOOD UREA NITROGEN 13 mg/dL (7-18); CALCIUM 8.8 mg/dL (8.5-10.1); CHLORIDE 107 mmol/L (98-107); CO2 28 mmol/L (21-32); CREATININE 0.8 mg/dL (0.55-1.3); GLUCOSE,RANDOM 78 mg/dL (74-106); MAGNESIUM 1.4 mg/dL (1.8-2.4); PHOSPHOROUS 5.1 mg/dL (2.5-4.9); POTASSIUM 4.3 mmol/L (3.5-5.1); SODIUM 140 mmol/L (136-145)
[2018-12-19] MEDS ORDERED: PREGABALIN 50 MG CAPSULE ONE (06:37)
[2018-12-19] MEDS ORDERED: PREGABALIN 25 MG CAPSULE ONE (06:38)
[2018-12-19] MEDS: PREGABALIN 75 MG CAPSULE PO SCH ×4 (06:40→23:03)
[2018-12-19] MEDS ORDERED: PANTOPRAZOLE 40 MG TABLET (FP) PO SCH (10:00)
[2018-12-19] MEDS ORDERED: ROFLUMILAST 500 MCG TABLET PO SCH (10:00)
[2018-12-19] MEDS ORDERED: MULTIVITAMINS (DAILY MVI) TABLET (FP) PO SCH (10:00)
[2018-12-19] MEDS ORDERED: PYRIDOXINE HCL (B-6) 50 MG TABLET (FP) PO SCH (10:00)
[2018-12-19] MEDS ORDERED: CALCIUM (OYSTER SHELL) 500 MG TABLET (FP) PO SCH (10:00)
[2018-12-19] MEDS ORDERED: diazePAM 5 MG TABLET ONE (10:03)
[2018-12-19] MEDS ORDERED: MAGNESIUM 2GM/50ML STERILE WATER IVPB IVPB ONE (11:00)
--- NOTE | 2018-12-19 11:18 | PN ---
Progress Note, Physician Chief Complaint: patient seen and examined in ER no SOb,no chest pain - Current Medication List Current Medications: Active Medications Albuterol Sulfate (Ventolin Hfa Inhaler -) 2 puff IH Q8H PRN PRN Reason: SHORT OF BREATH/WHEEZING Budesonide/Formoterol Fumarate (Symbicort 160/4.5mcg -) 2 puff IH BID [facility] Last Admin: 12/19/18 02:58 Dose: Not Given Calcium Carbonate (Os-Petey 500mg -) 500 mg PO BID [facility] Last Admin: 12/19/18 09:52 Dose: 500 mg Diazepam (Valium -) 5 mg PO BID [facility] Last Admin: 12/19/18 10:11 Dose: 5 mg Docusate Sodium (Colace -) 100 mg PO BID PRN PRN Reason: CONSTIPATION Fentanyl (Duragesic 50mcg Patch -) 1 patch TD Q72H [facility] Miscellaneous (Duragesic Patch Waste) 1 each TD PRN PRN PRN Reason: PATCH REMOVAL Multivitamins/Minerals/Vitamin C (Tab-A-Vit -) 1 tab PO DAILY [facility] Last Admin: 12/19/18 09:52 Dose: 1 tab Mupirocin (Bactroban 2% Cream -) 1 applic TP BID [facility] Oxycodone HCl (Roxicodone -) 5 mg PO Q4H PRN PRN Reason: PAIN LEVEL 6-10 Pantoprazole Sodium (Protonix -) 40 mg PO DAILY [facility] Last Admin: 12/19/18 09:52 Dose: 40 mg Pregabalin (Lyrica -) 75 mg PO TID [facility] Last Admin: 12/19/18 06:40 Dose: 75 mg Pyridoxine HCl (Vitamin B6 -) 100 mg PO DAILY [facility] Last Admin: 12/19/18 09:52 Dose: 100 mg Roflumilast (Daliresp -) 500 mcg PO DAILY [facility] Last Admin: 12/19/18 09:52 Dose: 500 mcg Rosuvastatin Calcium (Crestor -) 10 mg PO HS [facility] Trazodone HCl (Desyrel -) 50 mg PO HS [facility] - Objective Vital Signs: Vital Signs Temperature 98.0 F 12/19/18 06:09 Pulse Rate 69 12/19/18 06:09 Respiratory Rate 14 12/19/18 06:09 Blood Pressure 143/93 12/19/18 06:09 O2 Sat by Pulse Oximetry (%) 96 12/19/18 06:09 Constitutional: Yes: Calm, Thin Cardiovascular: Yes: Regular Rate and Rhythm, S1, S2 Respiratory: Yes: CTA Bilaterally Gastrointestinal: Yes: Normal Bowel Sounds, Soft Edema: No Neurological: Yes: Alert, Oriented Labs: CBC, BMP 12/19/18 05:30 12/19/18 05:30 INR, PTT INR 1.02 (0.83-1.09) 12/18/18 17:45 Problem List - Problems (1) Fall Assessment/Plan: PT eval neurology carotid doppler negative xray negative echo pending CE 3 sets negative Code(s): W19.XXXA - UNSPECIFIED FALL, INITIAL ENCOUNTER Qualifiers: Encounter type: initial encounter Qualified Code(s): W19.XXXA - Unspecified fall, initial encounter (2) Skin tear of elbow without complication Assessment/Plan: bactroban Code(s): S51.019A - LACERATION WITHOUT FOREIGN BODY OF UNSP ELBOW, INIT ENCNTR (3) Syncope Assessment/Plan: replete magnesium neurology PT eval echo Code(s): R55 - SYNCOPE AND COLLAPSE (4) Chronic back pain Assessment/Plan: fentanyl patch pain meds Code(s): M54.9 - DORSALGIA, UNSPECIFIED; G89.29 - OTHER CHRONIC PAIN (5) COPD (chronic obstructive pulmonary disease) Assessment/Plan: bronchodilator oxygen Code(s): J44.9 - CHRONIC OBSTRUCTIVE PULMONARY DISEASE, UNSPECIFIED
--- NOTE | 2018-12-19 11:58 | EKG ---
Test Reason : Blood Pressure : / mmHG Vent. Rate : 060 BPM Atrial Rate : 060 BPM P-R Int : 182 ms QRS Dur : 078 ms QT Int : 406 ms P-R-T Axes : 057 043 059 degrees QTc Int : 406 ms POOR DATA QUALITY, INTERPRETATION MAY BE ADVERSELY AFFECTED NORMAL SINUS RHYTHM NORMAL ECG WHEN COMPARED WITH ECG OF 15-NOV-2017 00:48, NO SIGNIFICANT CHANGE WAS FOUND Confirmed by SUSANNA HILL, CESAR ([id number]) on 12/19/2018 11:58:22 AM Referred By: Confirmed By:CESAR MULLINS MD
[2018-12-19] MEDS ORDERED: MUPIROCIN CA 2% TOPICAL CREAM 15 GM TUBE TP SCH (12:15)
[2018-12-19 12:33] LABS: CHOLESTEROL 115 mg/dL (50-200); HDL CHOLESTEROL 32 mg/dL (40-60); TRIGLYCERIDES 121 mg/dL (0-150)
[2018-12-19] MEDS ORDERED: FENTANYL PATCH WASTE MC PRN (14:17)
[2018-12-19] MEDS ORDERED: ALBUTEROL SO4 8 GM HFA INHALER IH PRN (15:03)
[2018-12-19] MEDS: ACETAMINOPHEN 325 MG TABLET (FP) PO PRN (15:10)
--- NOTE | 2018-12-19 15:33 | CONSULT ---
Consult - text type - Consultation Consultation Note: NEUROLOGY CONSULT APPRECIATED: This 73 yo RH female lives with her son for last few months as she prepares to move to assisted living. PMHX: osteoporosis, chronic LBP, COPD, nicotine dependence, HLD, insomina, GERD , "thyroid nodules" Medications: calcium, fentanyl 50 mg, amitiza, roflumilast, metoprolol 25 mg ER , pyridoxine, albuterol, symbicort, rosuvastatin, diazepam, trazodone, pantoprazole, oxycodone. Chronic LBP since age of 57, which caused her to retire from work and begin ambulating with cane. She reports she can not even walk a block without having to sit down due to pain. She also notes depression, poor appetite and weight loss, insomnia, and nocturnal paresthesia in hands and feet. She denies changes in bowel or bladder function. Today attempting to stand up from bed she leaned against a rolling table and fell forward with possible head injury but no LOC. She denies previous falls. She has had episodic headaches in the past which were rare and mild. She reports one week of new onset "throbbing" headaches over [employer], with newly associated photophobia, phonophobia and nausea. Head CT (reviewed): Normal study; CT of neck: multilevel DJD, notably C4,C5 Carotid duplex: no significant stenosis; Xrays of elbow and Ribs: negative for fx MRI of LS spine (12/19/18): Shows diffuse, chronic degenerative discs with disc/ osteophytes but no sig spinal stenosis. Labs: B12 383 Folate 14 TSH 1.66 DAVID: (-) bruit, Cor reg, kyphotic and frail, ecchymoses noted to R elbow, no evidence of head trauma, neck supple NEURO EXAM: Mentation/speech: Normal. Ox. [facility]. December 19, 2018. Jimmie corrected to Trump. TRUMP PMURT / recall at 3 mins. CN II-CNXII: Prosthetic L eye. Otherwise full wilkes appreciated OD. Motor: No drift. Normal strength throughout. Reflexes normal and symmetric. Toes downgoing. Coordination: No FTN dystaxia. Romberg - Sensation: Normal to Vibration. Gait: flexed, mild shuffling. Impression: Fall with head injury. Chronic gait dysfunction. "New onset" headache with features of migraine. Chronic pain of uncertain etiology. Mild underlying OMS +/- Depression Plan: Await RPR, Add Fe++, Iron, TIBC, Ferritin, ESR, CRP (r/o temporal arteritis) PT with rolling waker for gait and balance. Simplify narcotics regimen. Avoid sedative-hypnotics (predispose to falls) Thank you very much. Robinson Major MD
--- NOTE | 2018-12-19 15:34 | ECHO ---
Name: GRIS GAFFNEY Exam:Adult Echocardiogram Study Date: 12/19/2018 11:58 AM Age: 73 yrs Reason For Study: SYNCOPE MMode/2D Measurements & Calculations IVSd: 0.92 cm Ao root diam: 3.1 cm LVIDd: 3.9 cm LA dimension: 2.6 cm LVIDs: 2.7 cm LVPWd: 0.73 cm EDV(Teich): 65.5 ml LVOT diam: 2.2 cm ESV(Teich): 26.8 ml Doppler Measurements & Calculations MV E max cayetano: 60.7 cm/sec Ao V2 max: 122.8 cm/sec MV A max cayetano: 62.2 cm/sec Ao max P.0 mmHg MV E/A: 0.98 NAGI(V,D): 2.4 cm2 MV dec time: 0.18 sec LV V1 max P.4 mmHg MR max cayetano: 398.2 cm/sec LV V1 max: 77.5 cm/sec MR max P.4 mmHg TR max cayetano: 198.0 cm/sec Med Peak E' Cayetano: 8.2 cm/sec TR max P.7 mmHg Med E/e': 7.4 Lat Peak E' Cayetano: 6.4 cm/sec Lat E/e': 9.5 Procedure A complete two-dimensional transthoracic echocardiogram was performed (2D, M-mode, Doppler and color flow Doppler). Left Ventricle The left ventricular size, thickness and function are normal. The left ventricular ejection fraction is normal. Ejection Fraction = 60-65%. The left ventricular wall motion is normal. Right Ventricle The right ventricle is normal in size and function. Atria Normal left and right atrial size and function. Mitral Valve There is no mitral regurgitation noted. Tricuspid Valve There is trace tricuspid regurgitation. There was insufficient TR detected to calculate RV systolic p ressure. Aortic Valve No hemodynamically significant valvular aortic stenosis. No aortic regurgitation is present. Pulmonic Valve There is no pulmonic valvular regurgitation. Great Vessels The aortic root is normal size. Pericardium/Pleura There is no pericardial effusion. Interpretation Summary The left ventricular size, thickness and function are normal The right ventricle is normal in size and function. There is trace tricuspid regurgitation. MD Andrzej Saunders 12/19/2018 03:34 PM
--- NOTE | 2018-12-19 15:57 | CON.CARD ---
Consult Consult Specialty:: Cardiology Referred by:: Noemi Bentley Reason for Consultation:: Fall - History of Present Illness Chief Complaint: Fall History of Present Illness: 73 year old female with a pmhx of chronic back pain, htn, hld, copd, IBS, hiatal hernia, and left eye blindness who presents after a fall. Patient was home and heard her son knock over something in the other room. She got up out of bed to see what happened. She reports that she was leaning on the rolling table and that the table fell over and as a result she fell. Adamantly denies any LOC. No chest pain, sob, or palpitations. Some minor elbow pain and mild headache. Head CT neg acute bleed EKG Echocardiogram normal LVEF and no significant valve disease Carotids no stenosis. EKG sinus rhythm no ischemic changes Trop negative - History Source History Provided By: Patient, Medical Record - Past Medical History Cardio/Vascular: Yes: HTN, Hyperlipdemia Pulmonary: Yes: COPD Gastrointestinal: Yes: Hiatal Hernia, Irritable Bowel Disease Musculoskeletal: Yes: Chronic low back pain - Alcohol/Substance Use Hx Alcohol Use: No - Smoking History Smoking history: Former smoker Have you smoked in the past 12 months: No Aproximately how many cigarettes per day: 5 If you are a former smoker, when did you quit?: t-7 Home Medications - Allergies Allergies/Adverse Reactions: Allergies Allergy/AdvReac Type Severity Reaction Status Date / Time morphine Allergy Verified 12/18/18 15:50 nalbuphine HCl [From Nubain] Allergy Verified 12/18/18 15:50 Sulfa (Sulfonamide Allergy Verified 12/18/18 15:50 Antibiotics) - Home Medications Home Medications: Ambulatory Orders Calcium (Oyster Shell) [Os-Petey 500MG -] 500 mg PO BID 08/22/13 FENTANYL 50mcg PATCH [DURAGESIC 50 mcg PATCH -] 1 each TD Q72H 08/22/13 Lubiprostone [Amitiza] 24 mcg PO DAILY PRN 08/22/13 Multivitamin [Multivitamins] 1 each PO DAILY 08/22/13 Roflumilast [Daliresp -] 500 mcg PO DAILY 08/22/13 Metoprolol Succinate [Toprol XL -] 25 mg PO DAILY #0 tab.sr.24h 08/28/13 Pyridoxine HCl (B-6) [Vitamin B6 -] 100 mg PO DAILY #0 tablet 08/28/13 Albuterol Sulfate [Proair Hfa -] 1 - 2 inh PO TID 12/15/13 Budesonide/Formeterol Fumarate [SYMBICORT 160/4.5mcg -] 2 inh PO BID 12/15/13 Rosuvastatin Calcium [Crestor] 10 mg PO DAILY 06/03/14 Acetaminophen [Tylenol .Extra-Strength -] 1,000 mg PO Q6H 05/26/15 Diazepam [Valium] 5 mg PO BID 05/26/15 Pregabalin [Lyrica -] 75 mg PO TID 05/26/15 traZODone HCL [Trazodone HCl] 50 mg PO HS 11/15/17 Docusate Sodium [Colace -] 100 mg PO BID PRN #30 capsule 11/17/17 Pantoprazole Sodium [Protonix -] 40 mg PO DAILY #30 tablet.ec 11/17/17 oxyCODONE HCL [Roxicodone -] 5 mg PO Q4H PRN 5 Days #30 tablet MDD 6 11/17/17 traZODone HCL [Desyrel -] 50 mg PO HS #30 tablet 11/17/17 Vital Signs: Vital Signs Temperature 98.0 F 12/19/18 06:09 Pulse Rate 69 12/19/18 06:09 Respiratory Rate 14 12/19/18 06:09 Blood Pressure 143/93 12/19/18 06:09 O2 Sat by Pulse Oximetry (%) 97 12/19/18 07:30 - Other Data Labs, Other Data: CBC, BMP 12/19/18 05:30 12/19/18 05:30 INR, PTT INR 1.02 (0.83-1.09) 12/18/18 17:45 Troponin, BNP 12/18/18 12/19/18 12/19/18 17:45 00:27 05:30 Troponin I < 0.02 < 0.02 < 0.02 Troponin, BNP 12/18/18 12/19/18 12/19/18 17:45 00:27 05:30 Troponin I < 0.02 < 0.02 < 0.02 Imaging - Results Chest X-ray: Report Reviewed Cat Scan: Report Reviewed EKG: Image Reviewed Problem List - Problems (1) Fall Code(s): W19.XXXA - UNSPECIFIED FALL, INITIAL ENCOUNTER Qualifiers: Encounter type: initial encounter Qualified Code(s): W19.XXXA - Unspecified fall, initial encounter Assessment/Plan 73 year old female with a pmhx of chronic back pain, htn, hld, copd, IBS, hiatal hernia, and left eye blindness who presents after a fall. Patient was home and heard her son knock over something in the other room. She got up out of bed to see what happened. She reports that she was leaning on the rolling table and that the table fell over and as a result she fell. Adamantly denies any LOC. No chest pain, sob, or palpitations. Some minor elbow pain and mild headache. Head CT neg acute bleed EKG Echocardiogram normal LVEF and no significant valve disease Carotids no stenosis. EKG sinus rhythm no ischemic changes Trop negative 1) Fall No syncope as per patient Echo and ekg unremarkable Carotids no stenosis Trop negative On statin and low dose metoprolol Check orthostatics Review list of pain meds (on a lot). No further cardiac testing After reviewing the chart and finishing the visit, patient informed me she sees Dr. Barcenas. Please have patient follow up with Dr. Barcenas as an outpatient.
--- NOTE | 2018-12-19 16:13 | CONSULT ---
Consult Consult Specialty:: podiatry Reason for Consultation:: pain right heel - History of Present Illness Chief Complaint: pain right heel History of Present Illness: pain right heel 2 weeks - Past Medical History Cardio/Vascular: Yes: HTN, Hyperlipdemia Pulmonary: Yes: COPD Gastrointestinal: Yes: Hiatal Hernia, Irritable Bowel Disease Musculoskeletal: Yes: Chronic low back pain - Alcohol/Substance Use Hx Alcohol Use: No - Smoking History Smoking history: Former smoker Have you smoked in the past 12 months: No Aproximately how many cigarettes per day: 5 If you are a former smoker, when did you quit?: t-7 Home Medications - Allergies Allergies/Adverse Reactions: Allergies Allergy/AdvReac Type Severity Reaction Status Date / Time morphine Allergy Verified 12/18/18 15:50 nalbuphine HCl [From Nubain] Allergy Verified 12/18/18 15:50 Sulfa (Sulfonamide Allergy Verified 12/18/18 15:50 Antibiotics) - Home Medications Home Medications: Ambulatory Orders Calcium (Oyster Shell) [Os-Petey 500MG -] 500 mg PO BID 08/22/13 FENTANYL 50mcg PATCH [DURAGESIC 50 mcg PATCH -] 1 each TD Q72H 08/22/13 Lubiprostone [Amitiza] 24 mcg PO DAILY PRN 08/22/13 Multivitamin [Multivitamins] 1 each PO DAILY 08/22/13 Roflumilast [Daliresp -] 500 mcg PO DAILY 08/22/13 Metoprolol Succinate [Toprol XL -] 25 mg PO DAILY #0 tab.sr.24h 08/28/13 Pyridoxine HCl (B-6) [Vitamin B6 -] 100 mg PO DAILY #0 tablet 08/28/13 Albuterol Sulfate [Proair Hfa -] 1 - 2 inh PO TID 12/15/13 Budesonide/Formeterol Fumarate [SYMBICORT 160/4.5mcg -] 2 inh PO BID 12/15/13 Rosuvastatin Calcium [Crestor] 10 mg PO DAILY 06/03/14 Acetaminophen [Tylenol .Extra-Strength -] 1,000 mg PO Q6H 05/26/15 Diazepam [Valium] 5 mg PO BID 05/26/15 Pregabalin [Lyrica -] 75 mg PO TID 05/26/15 traZODone HCL [Trazodone HCl] 50 mg PO HS 01/18/18 Docusate Sodium [Colace -] 100 mg PO BID PRN #30 capsule 11/17/17 Pantoprazole Sodium [Protonix -] 40 mg PO DAILY #30 tablet.ec 11/17/17 oxyCODONE HCL [Roxicodone -] 5 mg PO Q4H PRN 5 Days #30 tablet MDD 6 11/17/17 traZODone HCL [Desyrel -] 50 mg PO HS #30 tablet 11/17/17 Physical Exam Vital Signs: Vital Signs Temperature 98.0 F 12/19/18 06:09 Pulse Rate 69 12/19/18 06:09 Respiratory Rate 14 12/19/18 06:09 Blood Pressure 143/93 12/19/18 06:09 O2 Sat by Pulse Oximetry (%) 97 12/19/18 07:30 Musculoskeletal: Yes: Other (+tender at insertion at plantar fascia right heel at insertion, -ecchymosis, -cellulitis, -ulceration, -heel spur on xray) Labs: CBC, BMP 12/19/18 05:30 12/19/18 05:30 Imaging - Results X-ray: Image Reviewed Assessment/Plan plantar fasciitis right heel Injection 2cc 1% lidocaine & 1 cc dexamethasone 4mg/ml to be done tomorrow. Needs orthotics outpatient. Will follow.
[2018-12-19] MEDS ORDERED: traZODone HCL 50 MG TABLET (FP) PO SCH (22:00)
[2018-12-19] MEDS ORDERED: ROSUVASTATIN CA 10 MG TABLET (FP) PO SCH (22:00)
[2018-12-19] MEDS ORDERED: PREGABALIN 75 MG CAPSULE PO SCH (22:00)
[2018-12-19] MEDS ORDERED: HEPARIN NA (PORCINE) 5,000 UNITS/ML 1ML VIAL SQ SCH (22:00)
[2018-12-19] MEDS: HEPARIN NA (PORCINE) 5,000 UNITS/ML 1ML VIAL SQ SCH (23:00)
[2018-12-19] MEDS: CALCIUM (OYSTER SHELL) 500 MG TABLET (FP) PO SCH (23:01)
[2018-12-19] MEDS: traZODone HCL 50 MG TABLET (FP) PO SCH (23:02)
[2018-12-19] MEDS: DOCUSATE SODIUM 100 MG CAPSULE (FP) PO PRN (23:02)
[2018-12-19] MEDS: MUPIROCIN CA 2% TOPICAL CREAM 15 GM TUBE TP SCH (23:04)
[2018-12-19] MEDS: ROSUVASTATIN CA 10 MG TABLET (FP) PO SCH (23:05)
[2018-12-20] MEDS: PREGABALIN 75 MG CAPSULE PO SCH ×3 (06:36→22:32)
[2018-12-20 07:35] LABS: EOS % 5.9 % (0-4.5); HEMATOCRIT 33.9 % (32.4-45.2); HEMOGLOBIN 11.6 GM/dL (10.7-15.3); LYMPH % 32.6 % (8-40); MCH 31.8 pg (25.7-33.7); MCHC 34.2 g/dl (32.0-36.0); NEUT % 54.5 % (42.8-82.8); PLATELET COUNT 195 K/MM3 (134-434); RBC 3.65 M/mm3 (3.60-5.2); RDW 13.4 % (11.6-15.6); WHITE BLOOD COUNT 5.3 K/mm3 (4.0-10.0)
[2018-12-20 08:31] LABS: ALBUMIN 3.5 g/dl (3.4-5.0); ALK PHOS 60 U/L (45-117); ANION GAP 5 MMOL/L (8-16); BILIRUBIN,TOTAL 0.5 mg/dL (0.2-1); BLOOD UREA NITROGEN 14 mg/dL (7-18); CALCIUM 9.1 mg/dL (8.5-10.1); CHLORIDE 101 mmol/L (98-107); CO2 33 mmol/L (21-32); CREATININE 0.8 mg/dL (0.55-1.3); GLUCOSE,RANDOM 118 mg/dL (74-106); MAGNESIUM 2.1 mg/dL (1.8-2.4); POTASSIUM 4.3 mmol/L (3.5-5.1); SGOT/AST 12 U/L (15-37); SGPT/ALT 13 U/L (13-61); SODIUM 138 mmol/L (136-145); TOT PROT 6.7 g/dl (6.4-8.2)
[2018-12-20] MEDS ORDERED: PT OWN MED DRAWER 7, Y5N ONE ×2 (09:59→22:22)
[2018-12-20] MEDS: MUPIROCIN CA 2% TOPICAL CREAM 15 GM TUBE TP SCH ×2 (10:08→22:33)
[2018-12-20] MEDS: diazePAM 5 MG TABLET PO SCH ×2 (10:08→22:32)
[2018-12-20] MEDS: HEPARIN NA (PORCINE) 5,000 UNITS/ML 1ML VIAL SQ SCH ×2 (10:08→22:33)
[2018-12-20] MEDS: MULTIVITAMINS (DAILY MVI) TABLET (FP) PO SCH (10:08)
[2018-12-20] MEDS: PANTOPRAZOLE 40 MG TABLET (FP) PO SCH (10:08)
[2018-12-20] MEDS: CALCIUM (OYSTER SHELL) 500 MG TABLET (FP) PO SCH ×2 (10:09→22:34)
[2018-12-20] MEDS: ROFLUMILAST 500 MCG TABLET PO SCH (10:09)
[2018-12-20] MEDS: BUDESONIDE/FORMETEROL FUMARATE 160/4.5 mcg INHALER IH SCH ×2 (10:10→22:36)
[2018-12-20] MEDS: PYRIDOXINE HCL (B-6) 50 MG TABLET (FP) PO SCH (10:16)
[2018-12-20] MEDS ORDERED: DEXAMETHASONE SOD PHOSPHATE 4 MG/1 ML VIAL ONE (10:28)
--- NOTE | 2018-12-20 10:53 | PN ---
Progress Note (short form) - Note Progress Note: Pt seen in bed. FUV right heel. vss, Tmax 98.6 +tender plantar fascia right, -heel spur on xray Plantar fasciitis Injection 2cc 1% lidocaine & 1cc dexametasone 4mg/ml right heel at insertion of plantar fascia to calcaneus. Will follow discussed orthoses. Son present throughout visit.
--- NOTE | 2018-12-20 18:01 | PN ---
Progress Note, Physician Chief Complaint: Fall Syncope COPD History of Present Illness: Previous notes and events reviewed awake and alert NAD complain of constipation - Current Medication List Current Medications: Active Medications Acetaminophen (Tylenol -) 650 mg PO Q6H PRN PRN Reason: PAIN LEVEL 1-5 Last Admin: 12/19/18 15:10 Dose: 650 mg Albuterol Sulfate (Ventolin Hfa Inhaler -) 2 puff IH Q8H PRN PRN Reason: SHORT OF BREATH/WHEEZING Budesonide/Formoterol Fumarate (Symbicort 160/4.5mcg -) 2 puff IH BID [facility] Last Admin: 12/20/18 10:10 Dose: 2 puff Calcium Carbonate (Os-Petey 500mg -) 500 mg PO BID [facility] Last Admin: 12/20/18 10:09 Dose: 500 mg Diazepam (Valium -) 5 mg PO BID [facility] Last Admin: 12/20/18 10:08 Dose: 5 mg Docusate Sodium (Colace -) 100 mg PO BID PRN PRN Reason: CONSTIPATION Last Admin: 12/19/18 23:02 Dose: 100 mg Fentanyl (Duragesic 50mcg Patch -) 1 patch TD Q72H [facility] Heparin Sodium (Porcine) (Heparin -) 5,000 unit SQ BID [facility] Last Admin: 12/20/18 10:08 Dose: 5,000 unit Miscellaneous (Duragesic Patch Waste) 1 each TD PRN PRN PRN Reason: PATCH REMOVAL Multivitamins/Minerals/Vitamin C (Tab-A-Vit -) 1 tab PO DAILY [facility] Last Admin: 12/20/18 10:08 Dose: 1 tab Mupirocin (Bactroban 2% Cream -) 1 applic TP BID [facility] Last Admin: 12/20/18 10:08 Dose: Not Given Oxycodone HCl (Roxicodone -) 5 mg PO Q4H PRN PRN Reason: PAIN LEVEL 6-10 Pantoprazole Sodium (Protonix -) 40 mg PO DAILY [facility] Last Admin: 12/20/18 10:08 Dose: 40 mg Pregabalin (Lyrica -) 75 mg PO TID [facility] Last Admin: 12/20/18 14:42 Dose: 75 mg Pyridoxine HCl (Vitamin B6 -) 100 mg PO DAILY [facility] Last Admin: 12/20/18 10:16 Dose: 100 mg Roflumilast (Daliresp -) 500 mcg PO DAILY [facility] Last Admin: 12/20/18 10:09 Dose: 500 mcg Rosuvastatin Calcium (Crestor -) 10 mg PO [facility] Last Admin: 12/19/18 23:05 Dose: 10 mg Trazodone HCl (Desyrel -) 50 mg PO [facility] Last Admin: 12/19/18 23:02 Dose: 50 mg - Objective Vital Signs: Vital Signs Temperature 98.4 F 12/20/18 13:57 Pulse Rate 93 H 12/20/18 13:57 Respiratory Rate 18 12/20/18 10:05 Blood Pressure 97/68 12/20/18 13:57 O2 Sat by Pulse Oximetry (%) 96 12/20/18 11:00 Constitutional: Yes: No Distress, Calm Eyes: Yes: Conjunctiva Clear HENT: Yes: Atraumatic Cardiovascular: Yes: Regular Rate and Rhythm Respiratory: Yes: Regular, CTA Bilaterally Gastrointestinal: Yes: Normal Bowel Sounds, Soft, Other (non tender) Musculoskeletal: Yes: Muscle Weakness Extremities: Yes: WNL Edema: No Neurological: Yes: Alert, Oriented Psychiatric: Yes: Alert, Oriented Labs: CBC, BMP 12/20/18 06:00 12/20/18 06:00 INR, PTT INR 1.02 (0.83-1.09) 12/18/18 17:45 <Hafsa Alarcon - Last Filed: 12/20/18 17:56> - Current Medication List Current Medications: Active Medications Acetaminophen (Tylenol -) 650 mg PO Q6H PRN PRN Reason: PAIN LEVEL 1-5 Last Admin: 12/19/18 15:10 Dose: 650 mg Albuterol Sulfate (Ventolin Hfa Inhaler -) 2 puff IH Q8H PRN PRN Reason: SHORT OF BREATH/WHEEZING Budesonide/Formoterol Fumarate (Symbicort 160/4.5mcg -) 2 puff IH BID [facility] Last Admin: 12/20/18 10:10 Dose: 2 puff Calcium Carbonate (Os-Petey 500mg -) 500 mg PO BID [facility] Last Admin: 12/20/18 10:09 Dose: 500 mg Cyanocobalamin (Vitamin B12 Injection -) 1,000 mcg IM DAILY [facility] Diazepam (Valium -) 5 mg PO BID [facility] Last Admin: 12/20/18 10:08 Dose: 5 mg Docusate Sodium (Colace -) 100 mg PO BID PRN PRN Reason: CONSTIPATION Last Admin: 12/19/18 23:02 Dose: 100 mg Fentanyl (Duragesic 50mcg Patch -) 1 patch TD Q72H [facility] Heparin Sodium (Porcine) (Heparin -) 5,000 unit SQ BID [facility] Last Admin: 12/20/18 10:08 Dose: 5,000 unit Miscellaneous (Duragesic Patch Waste) 1 each TD PRN PRN PRN Reason: PATCH REMOVAL Multivitamins/Minerals/Vitamin C (Tab-A-Vit -) 1 tab PO DAILY [facility] Last Admin: 12/20/18 10:08 Dose: 1 tab Mupirocin (Bactroban 2% Cream -) 1 applic TP BID [facility] Last Admin: 12/20/18 10:08 Dose: Not Given Oxycodone HCl (Roxicodone -) 5 mg PO Q4H PRN PRN Reason: PAIN LEVEL 6-10 Pantoprazole Sodium (Protonix -) 40 mg PO DAILY [facility] Last Admin: 12/20/18 10:08 Dose: 40 mg Polyethylene Glycol (Miralax (For Daily Use) -) 17 gm PO DAILY [facility] Pregabalin (Lyrica -) 75 mg PO TID [facility] Last Admin: 12/20/18 14:42 Dose: 75 mg Pyridoxine HCl (Vitamin B6 -) 100 mg PO DAILY [facility] Last Admin: 12/20/18 10:16 Dose: 100 mg Roflumilast (Daliresp -) 500 mcg PO DAILY [facility] Last Admin: 12/20/18 10:09 Dose: 500 mcg Rosuvastatin Calcium (Crestor -) 10 mg PO HS [facility] Last Admin: 12/19/18 23:05 Dose: 10 mg Trazodone HCl (Desyrel -) 50 mg PO [facility] Last Admin: 12/19/18 23:02 Dose: 50 mg - Objective Vital Signs: Vital Signs Temperature 98.2 F 12/20/18 21:18 Pulse Rate 90 12/20/18 21:18 Respiratory Rate 20 12/20/18 21:18 Blood Pressure 102/60 12/20/18 21:18 O2 Sat by Pulse Oximetry (%) 96 12/20/18 11:00 Labs: CBC, BMP 12/20/18 06:00 12/20/18 06:00 INR, PTT INR 1.02 (0.83-1.09) 12/18/18 17:45 <Noemi Bentley - Last Filed: 12/20/18 22:20> Problem List - Problems (1) Chronic back pain Assessment/Plan: -continue with fentanyl patch -monitor for pain control Code(s): M54.9 - DORSALGIA, UNSPECIFIED; G89.29 - OTHER CHRONIC PAIN (2) Fall Assessment/Plan: -PT -fall precaution -neurology on board Code(s): W19.XXXA - UNSPECIFIED FALL, INITIAL ENCOUNTER Qualifiers: Encounter type: initial encounter Qualified Code(s): W19.XXXA - Unspecified fall, initial encounter (3) Skin tear of elbow without complication Assessment/Plan: -change dressing daily -bactroban Code(s): S51.019A - LACERATION WITHOUT FOREIGN BODY OF UNSP ELBOW, INIT ENCNTR (4) Syncope Assessment/Plan: -fall precaution -cardiology on board -echo EF 60-65% Code(s): R55 - SYNCOPE AND COLLAPSE (5) COPD (chronic obstructive pulmonary disease) Assessment/Plan: -continue with ventolin IH, symbicort -O2 via [place] PRN for SOB -keep SpO2 >90% Code(s): J44.9 - CHRONIC OBSTRUCTIVE PULMONARY DISEASE, UNSPECIFIED <Hafsa Alarcon - Last Filed: 12/20/18 17:56> Assessment/Plan see problem list dvt ppx <Hafsa Alarcon - Last Filed: 12/20/18 17:56>
[2018-12-20 22:27] VITALS: BMI 12.6
[2018-12-20] MEDS: ROSUVASTATIN CA 10 MG TABLET (FP) PO SCH (22:32)
[2018-12-20] MEDS: traZODone HCL 50 MG TABLET (FP) PO SCH (22:32)
[2018-12-21 04:15] LABS: SERUM IRON SATURATION 16 % (15-55); TOTAL IRON BINDING CAPACITY 267 ug/dL (250-450); UIBC 223 ug/dL (118-369)
[2018-12-21] MEDS: PREGABALIN 75 MG CAPSULE PO SCH ×3 (06:13→22:23)
[2018-12-21 08:32] LABS: HEMATOCRIT 31.4 % (32.4-45.2); HEMOGLOBIN 10.8 GM/dL (10.7-15.3); MCHC 34.6 g/dl (32.0-36.0); MEAN CELL VOLUME 92.5 fl (80-96); MEAN PLT VOLUME 9.2 fl (7.5-11.1); PLATELET COUNT 195 K/MM3 (134-434); RBC 3.39 M/mm3 (3.60-5.2); RDW 13.3 % (11.6-15.6); WHITE BLOOD COUNT 4.9 K/mm3 (4.0-10.0)
[2018-12-21 09:12] LABS: ALBUMIN 3.4 g/dl (3.4-5.0); ALK PHOS 60 U/L (45-117); ANION GAP 6 MMOL/L (8-16); BILIRUBIN,TOTAL 0.4 mg/dL (0.2-1); BLOOD UREA NITROGEN 20 mg/dL (7-18); CALCIUM 9.1 mg/dL (8.5-10.1); CHLORIDE 97 mmol/L (98-107); CO2 30 mmol/L (21-32); CREATININE 0.7 mg/dL (0.55-1.3); GLUCOSE,RANDOM 134 mg/dL (74-106); POTASSIUM 4.4 mmol/L (3.5-5.1); SGOT/AST 9 U/L (15-37); SGPT/ALT 12 U/L (13-61); SODIUM 133 mmol/L (136-145); TOT PROT 6.5 g/dl (6.4-8.2)
[2018-12-21] MEDS ORDERED: PT OWN MED DRAWER 7, Y5N ONE ×3 (09:24→22:14)
[2018-12-21] MEDS: diazePAM 5 MG TABLET PO SCH ×2 (09:49→22:23)
[2018-12-21] MEDS: MULTIVITAMINS (DAILY MVI) TABLET (FP) PO SCH (09:49)
[2018-12-21] MEDS: PANTOPRAZOLE 40 MG TABLET (FP) PO SCH (09:49)
[2018-12-21] MEDS: BUDESONIDE/FORMETEROL FUMARATE 160/4.5 mcg INHALER IH SCH ×2 (09:50→22:24)
[2018-12-21] MEDS: HEPARIN NA (PORCINE) 5,000 UNITS/ML 1ML VIAL SQ SCH ×2 (09:50→22:23)
[2018-12-21] MEDS: CYANOCOBALAMIN (VITAMIN B-12) 1000 MCG/1 ML VIAL IM SCH (09:51)
[2018-12-21] MEDS: POLYETHYLENE GLYCOL 3350 119 GM BTL PO SCH (09:52)
[2018-12-21] MEDS: CALCIUM (OYSTER SHELL) 500 MG TABLET (FP) PO SCH ×2 (09:52→22:23)
[2018-12-21] MEDS ORDERED: FENTANYL PATCH WASTE TD PRN ×2 (10:00)
[2018-12-21] MEDS ORDERED: fentaNYL 50mcg/hr PATCH.TD72 TD SCH ×3 (10:00)
[2018-12-21] MEDS: MUPIROCIN CA 2% TOPICAL CREAM 15 GM TUBE TP SCH ×2 (10:45→22:21)
[2018-12-21] MEDS: ROFLUMILAST 500 MCG TABLET PO SCH (10:46)
[2018-12-21] MEDS: PYRIDOXINE HCL (B-6) 50 MG TABLET (FP) PO SCH (10:54)
--- NOTE | 2018-12-21 13:31 | PN ---
Progress Note, Physician Chief Complaint: Syncope/Fall History of Present Illness: Head CT (reviewed): Normal study; CT of neck: multilevel DJD, notably C4,C5 Carotid duplex: no significant stenosis; Xrays of elbow and Ribs: negative for fx MRI of LS spine (12/19/18): Shows diffuse, chronic degenerative discs with disc/ osteophytes but no sig spinal stenosis. Seen by Neurology Evaluated by Physical therapy - Current Medication List Current Medications: Active Medications Acetaminophen (Tylenol -) 650 mg PO Q6H PRN PRN Reason: PAIN LEVEL 1-5 Last Admin: 12/19/18 15:10 Dose: 650 mg Albuterol Sulfate (Ventolin Hfa Inhaler -) 2 puff IH Q8H PRN PRN Reason: SHORT OF BREATH/WHEEZING Budesonide/Formoterol Fumarate (Symbicort 160/4.5mcg -) 2 puff IH BID [facility] Last Admin: 12/21/18 09:50 Dose: 2 puff Calcium Carbonate (Os-Petey 500mg -) 500 mg PO BID [facility] Last Admin: 12/21/18 09:52 Dose: 500 mg Cyanocobalamin (Vitamin B12 Injection -) 1,000 mcg IM DAILY [facility] Last Admin: 12/21/18 09:51 Dose: 1,000 mcg Diazepam (Valium -) 5 mg PO BID [facility] Last Admin: 12/21/18 09:49 Dose: 5 mg Docusate Sodium (Colace -) 100 mg PO BID PRN PRN Reason: CONSTIPATION Last Admin: 12/19/18 23:02 Dose: 100 mg Fentanyl (Duragesic 50mcg Patch -) 1 patch TD Q72H [facility] Last Admin: 12/21/18 09:53 Dose: 1 patch Heparin Sodium (Porcine) (Heparin -) 5,000 unit SQ BID [facility] Last Admin: 12/21/18 09:50 Dose: 5,000 unit Miscellaneous (Duragesic Patch Waste) 1 each TD PRN PRN PRN Reason: PATCH REMOVAL Multivitamins/Minerals/Vitamin C (Tab-A-Vit -) 1 tab PO DAILY [facility] Last Admin: 12/21/18 09:49 Dose: 1 tab Mupirocin (Bactroban 2% Cream -) 1 applic TP BID [facility] Last Admin: 12/21/18 10:45 Dose: 1 applic Oxycodone HCl (Roxicodone -) 5 mg PO Q4H PRN PRN Reason: PAIN LEVEL 6-10 Pantoprazole Sodium (Protonix -) 40 mg PO DAILY [facility] Last Admin: 12/21/18 09:49 Dose: 40 mg Polyethylene Glycol (Miralax (For Daily Use) -) 17 gm PO DAILY [facility] Last Admin: 12/21/18 09:52 Dose: 17 gm Pregabalin (Lyrica -) 75 mg PO TID [facility] Last Admin: 12/21/18 06:13 Dose: 75 mg Pyridoxine HCl (Vitamin B6 -) 100 mg PO DAILY [facility] Last Admin: 12/21/18 10:54 Dose: 100 mg Roflumilast (Daliresp -) 500 mcg PO DAILY [facility] Last Admin: 12/21/18 10:46 Dose: 500 mcg Rosuvastatin Calcium (Crestor -) 10 mg PO [facility] Last Admin: 12/20/18 22:32 Dose: 10 mg Trazodone HCl (Desyrel -) 50 mg PO [facility] Last Admin: 12/20/18 22:32 Dose: 50 mg - Objective Vital Signs: Vital Signs Temperature 97.9 F 12/21/18 10:00 Pulse Rate 74 12/21/18 10:00 Respiratory Rate 16 12/21/18 10:00 Blood Pressure 99/57 L 12/21/18 10:00 O2 Sat by Pulse Oximetry (%) 96 12/21/18 03:00 Constitutional: Yes: No Distress, Calm, Cachectic Cardiovascular: Yes: Regular Rate and Rhythm Gastrointestinal: Yes: Normal Bowel Sounds, Soft Musculoskeletal: Yes: Muscle Weakness Edema: No Peripheral Pulses WNL: Yes Neurological: Yes: Alert, Oriented Psychiatric: Yes: Alert, Oriented Labs: CBC, BMP 12/21/18 07:00 12/21/18 07:00 INR, PTT INR 1.02 (0.83-1.09) 12/18/18 17:45 Problem List - Problems (1) Chronic back pain Assessment/Plan: -continue with fentanyl patch -monitor for pain control Code(s): M54.9 - DORSALGIA, UNSPECIFIED; G89.29 - OTHER CHRONIC PAIN (2) Fall Assessment/Plan: -PT -fall precaution -neurology on board Code(s): W19.XXXA - UNSPECIFIED FALL, INITIAL ENCOUNTER Qualifiers: Encounter type: initial encounter Qualified Code(s): W19.XXXA - Unspecified fall, initial encounter (3) Skin tear of elbow without complication Assessment/Plan: -change dressing daily -bactroban Code(s): S51.019A - LACERATION WITHOUT FOREIGN BODY OF UNSP ELBOW, INIT ENCNTR (4) Syncope Assessment/Plan: -fall precaution -cardiology on board -echo EF 60-65% Code(s): R55 - SYNCOPE AND COLLAPSE (5) COPD (chronic obstructive pulmonary disease) Assessment/Plan: -Nasal O2 PRN -Bronchodilators Code(s): J44.9 - CHRONIC OBSTRUCTIVE PULMONARY DISEASE, UNSPECIFIED (6) Severe malnutrition Assessment/Plan: -BMI severely low -at risk for multi-organ damage -multivitamin -Endure TID Code(s): E43 - UNSPECIFIED SEVERE PROTEIN-CALORIE MALNUTRITION Assessment/Plan See problem list Physical therapy
[2018-12-21] MEDS: DOCUSATE SODIUM 100 MG CAPSULE (FP) PO PRN ×2 (18:09→22:23)
[2018-12-21] MEDS: ACETAMINOPHEN 325 MG TABLET (FP) PO PRN (20:07)
[2018-12-21] MEDS: oxyCODONE HCL 5 MG TABLET PO PRN (20:09)
[2018-12-21] MEDS: traZODone HCL 50 MG TABLET (FP) PO SCH (22:23)
[2018-12-21] MEDS: ROSUVASTATIN CA 10 MG TABLET (FP) PO SCH (22:23)
[2018-12-22] MEDS: PREGABALIN 75 MG CAPSULE PO SCH ×3 (06:18→22:00)
[2018-12-22] MEDS ORDERED: PT OWN MED DRAWER 7, Y5N ONE (09:56)
[2018-12-22] MEDS: CYANOCOBALAMIN (VITAMIN B-12) 1000 MCG/1 ML VIAL IM SCH (09:59)
[2018-12-22] MEDS: oxyCODONE HCL 5 MG TABLET PO PRN ×2 (10:04→22:02)
[2018-12-22] MEDS: PYRIDOXINE HCL (B-6) 50 MG TABLET (FP) PO SCH (10:05)
[2018-12-22] MEDS: MULTIVITAMINS (DAILY MVI) TABLET (FP) PO SCH (10:05)
[2018-12-22] MEDS: diazePAM 5 MG TABLET PO SCH ×2 (10:05→22:00)
[2018-12-22] MEDS: ROFLUMILAST 500 MCG TABLET PO SCH (10:05)
[2018-12-22] MEDS: HEPARIN NA (PORCINE) 5,000 UNITS/ML 1ML VIAL SQ SCH ×2 (10:05→22:00)
[2018-12-22] MEDS: CALCIUM (OYSTER SHELL) 500 MG TABLET (FP) PO SCH ×2 (10:05→22:00)
[2018-12-22] MEDS: PANTOPRAZOLE 40 MG TABLET (FP) PO SCH (10:05)
[2018-12-22] MEDS: MUPIROCIN CA 2% TOPICAL CREAM 15 GM TUBE TP SCH ×2 (10:06→22:00)
[2018-12-22] MEDS: BUDESONIDE/FORMETEROL FUMARATE 160/4.5 mcg INHALER IH SCH ×2 (10:06→22:04)
[2018-12-22] MEDS: POLYETHYLENE GLYCOL 3350 119 GM BTL PO SCH (10:10)
--- NOTE | 2018-12-22 11:00 | PN ---
Progress Note, Physician Chief Complaint: Syncope/Fall History of Present Illness: Head CT (reviewed): Normal study; CT of neck: multilevel DJD, notably C4,C5 Carotid duplex: no significant stenosis; Xrays of elbow and Ribs: negative for fx MRI of LS spine (12/19/18): Shows diffuse, chronic degenerative discs with disc/ osteophytes but no sig spinal stenosis. Seen by Neurology Evaluated by Physical therapy - Current Medication List Current Medications: Active Medications Acetaminophen (Tylenol -) 650 mg PO Q6H PRN PRN Reason: PAIN LEVEL 1-5 Last Admin: 12/21/18 20:07 Dose: 650 mg Albuterol Sulfate (Ventolin Hfa Inhaler -) 2 puff IH Q8H PRN PRN Reason: SHORT OF BREATH/WHEEZING Budesonide/Formoterol Fumarate (Symbicort 160/4.5mcg -) 2 puff IH BID [facility] Last Admin: 12/22/18 10:06 Dose: 2 puff Calcium Carbonate (Os-Petey 500mg -) 500 mg PO BID [facility] Last Admin: 12/22/18 10:05 Dose: 500 mg Cyanocobalamin (Vitamin B12 Injection -) 1,000 mcg IM DAILY [facility] Last Admin: 12/22/18 09:59 Dose: 1,000 mcg Diazepam (Valium -) 5 mg PO BID [facility] Last Admin: 12/22/18 10:05 Dose: 5 mg Docusate Sodium (Colace -) 100 mg PO BID PRN PRN Reason: CONSTIPATION Last Admin: 12/21/18 22:23 Dose: 100 mg Fentanyl (Duragesic 50mcg Patch -) 1 patch TD Q72H [facility] Last Admin: 12/21/18 09:53 Dose: 1 patch Heparin Sodium (Porcine) (Heparin -) 5,000 unit SQ BID [facility] Last Admin: 12/22/18 10:05 Dose: Not Given Miscellaneous (Duragesic Patch Waste) 1 each TD PRN PRN PRN Reason: PATCH REMOVAL Multivitamins/Minerals/Vitamin C (Tab-A-Vit -) 1 tab PO DAILY [facility] Last Admin: 12/22/18 10:05 Dose: 1 tab Mupirocin (Bactroban 2% Cream -) 1 applic TP BID [facility] Last Admin: 12/22/18 10:06 Dose: 1 applic Oxycodone HCl (Roxicodone -) 5 mg PO Q4H PRN PRN Reason: PAIN LEVEL 6-10 Last Admin: 12/22/18 10:04 Dose: 5 mg Pantoprazole Sodium (Protonix -) 40 mg PO DAILY [facility] Last Admin: 12/22/18 10:05 Dose: 40 mg Polyethylene Glycol (Miralax (For Daily Use) -) 17 gm PO DAILY [facility] Last Admin: 12/22/18 10:10 Dose: 17 gm Pregabalin (Lyrica -) 75 mg PO TID [facility] Last Admin: 12/22/18 06:18 Dose: 75 mg Pyridoxine HCl (Vitamin B6 -) 100 mg PO DAILY [facility] Last Admin: 12/22/18 10:05 Dose: 100 mg Roflumilast (Daliresp -) 500 mcg PO DAILY [facility] Last Admin: 12/22/18 10:05 Dose: 500 mcg Rosuvastatin Calcium (Crestor -) 10 mg PO [facility] Last Admin: 12/21/18 22:23 Dose: 10 mg Trazodone HCl (Desyrel -) 50 mg PO [facility] Last Admin: 12/21/18 22:23 Dose: 50 mg - Objective Vital Signs: Vital Signs Temperature 98.9 F 12/22/18 09:04 Pulse Rate 87 12/22/18 09:04 Respiratory Rate 20 12/22/18 09:04 Blood Pressure 89/42 L 12/22/18 09:04 O2 Sat by Pulse Oximetry (%) 96 12/22/18 03:00 Constitutional: Yes: No Distress, Calm, Cachectic Cardiovascular: Yes: Regular Rate and Rhythm Respiratory: Yes: Regular Gastrointestinal: Yes: Normal Bowel Sounds, Soft Musculoskeletal: Yes: WNL Extremities: Yes: WNL Edema: No Peripheral Pulses WNL: Yes Neurological: Yes: Alert, Oriented Psychiatric: Yes: Alert, Oriented Labs: CBC, BMP 12/21/18 07:00 12/21/18 07:00 INR, PTT INR 1.02 (0.83-1.09) 12/18/18 17:45 Problem List - Problems (1) Chronic back pain Assessment/Plan: -continue with fentanyl patch -monitor for pain control Code(s): M54.9 - DORSALGIA, UNSPECIFIED; G89.29 - OTHER CHRONIC PAIN (2) Fall Assessment/Plan: -PT -fall precaution -neurology on board Code(s): W19.XXXA - UNSPECIFIED FALL, INITIAL ENCOUNTER Qualifiers: Encounter type: initial encounter Qualified Code(s): W19.XXXA - Unspecified fall, initial encounter (3) Skin tear of elbow without complication Assessment/Plan: -change dressing daily -bactroban Code(s): S51.019A - LACERATION WITHOUT FOREIGN BODY OF UNSP ELBOW, INIT ENCNTR (4) Syncope Assessment/Plan: -fall precaution -cardiology on board -echo EF 60-65% Code(s): R55 - SYNCOPE AND COLLAPSE (5) COPD (chronic obstructive pulmonary disease) Assessment/Plan: -Nasal O2 PRN -Bronchodilators Code(s): J44.9 - CHRONIC OBSTRUCTIVE PULMONARY DISEASE, UNSPECIFIED (6) Severe malnutrition Assessment/Plan: -BMI severely low -at risk for multi-organ damage -multivitamin -Endure TID Code(s): E43 - UNSPECIFIED SEVERE PROTEIN-CALORIE MALNUTRITION Assessment/Plan See problem list Physical therapy
[2018-12-22] MEDS: ROSUVASTATIN CA 10 MG TABLET (FP) PO SCH (22:00)
[2018-12-22] MEDS: traZODone HCL 50 MG TABLET (FP) PO SCH (22:00)
[2018-12-22] MEDS: DOCUSATE SODIUM 100 MG CAPSULE (FP) PO PRN (22:18)
[2018-12-23] MEDS: PREGABALIN 75 MG CAPSULE PO SCH ×2 (06:25→13:16)
[2018-12-23] MEDS: oxyCODONE HCL 5 MG TABLET PO PRN ×2 (06:34→13:12)
[2018-12-23] MEDS: HEPARIN NA (PORCINE) 5,000 UNITS/ML 1ML VIAL SQ SCH (10:08)
[2018-12-23] MEDS: diazePAM 5 MG TABLET PO SCH (10:08)
[2018-12-23] MEDS: MULTIVITAMINS (DAILY MVI) TABLET (FP) PO SCH (10:08)
[2018-12-23] MEDS: CYANOCOBALAMIN (VITAMIN B-12) 1000 MCG/1 ML VIAL IM SCH (10:08)
[2018-12-23] MEDS: PANTOPRAZOLE 40 MG TABLET (FP) PO SCH (10:08)
[2018-12-23] MEDS: CALCIUM (OYSTER SHELL) 500 MG TABLET (FP) PO SCH (10:09)
[2018-12-23] MEDS: PYRIDOXINE HCL (B-6) 50 MG TABLET (FP) PO SCH (10:09)
[2018-12-23] MEDS: POLYETHYLENE GLYCOL 3350 119 GM BTL PO SCH (10:09)
[2018-12-23] MEDS: BUDESONIDE/FORMETEROL FUMARATE 160/4.5 mcg INHALER IH SCH (10:09)
[2018-12-23] MEDS: MUPIROCIN CA 2% TOPICAL CREAM 15 GM TUBE TP SCH (10:09)
[2018-12-23] MEDS: ROFLUMILAST 500 MCG TABLET PO SCH (10:09)
--- NOTE | 2018-12-23 10:30 | PN ---
Progress Note (short form) - Note Progress Note: Pt seen in bed. FUV right heel. vss, Tmax 98.2 +resolved tender plantar fascia right, Plantar fasciitis Will follow discussed orthoses. Recommended custom orthoses and to follow up with [facility] outpatient.
[2018-12-23] MEDS: ACETAMINOPHEN 325 MG TABLET (FP) PO PRN (13:13)
--- NOTE | 2018-12-23 14:11 | PN ---
Progress Note, Physician Chief Complaint: Fall Syncope COPD History of Present Illness: Previous notes and events reviewed awake and alert NAD complain of pain and not feeling well - Current Medication List Current Medications: Active Medications Acetaminophen (Tylenol -) 650 mg PO Q6H PRN PRN Reason: PAIN LEVEL 1-5 Last Admin: 12/23/18 13:13 Dose: 650 mg Albuterol Sulfate (Ventolin Hfa Inhaler -) 2 puff IH Q8H PRN PRN Reason: SHORT OF BREATH/WHEEZING Budesonide/Formoterol Fumarate (Symbicort 160/4.5mcg -) 2 puff IH BID [facility] Last Admin: 12/23/18 10:09 Dose: 2 puff Calcium Carbonate (Os-Petey 500mg -) 500 mg PO BID [facility] Last Admin: 12/23/18 10:09 Dose: 500 mg Cyanocobalamin (Vitamin B12 Injection -) 1,000 mcg IM DAILY [facility] Last Admin: 12/23/18 10:08 Dose: 1,000 mcg Diazepam (Valium -) 5 mg PO BID [facility] Last Admin: 12/23/18 10:08 Dose: 5 mg Docusate Sodium (Colace -) 100 mg PO BID PRN PRN Reason: CONSTIPATION Last Admin: 12/22/18 22:18 Dose: 100 mg Fentanyl (Duragesic 50mcg Patch -) 1 patch TD Q72H [facility] Last Admin: 12/21/18 09:53 Dose: 1 patch Heparin Sodium (Porcine) (Heparin -) 5,000 unit SQ BID [facility] Last Admin: 12/23/18 10:08 Dose: 5,000 unit Miscellaneous (Duragesic Patch Waste) 1 each TD PRN PRN PRN Reason: PATCH REMOVAL Multivitamins/Minerals/Vitamin C (Tab-A-Vit -) 1 tab PO DAILY [facility] Last Admin: 12/23/18 10:08 Dose: 1 tab Mupirocin (Bactroban 2% Cream -) 1 applic TP BID [facility] Last Admin: 12/23/18 10:09 Dose: 1 applic Oxycodone HCl (Roxicodone -) 5 mg PO Q4H PRN PRN Reason: PAIN LEVEL 6-10 Last Admin: 12/23/18 13:12 Dose: 5 mg Pantoprazole Sodium (Protonix -) 40 mg PO DAILY [facility] Last Admin: 12/23/18 10:08 Dose: 40 mg Polyethylene Glycol (Miralax (For Daily Use) -) 17 gm PO DAILY [facility] Last Admin: 12/23/18 10:09 Dose: 17 gm Pregabalin (Lyrica -) 75 mg PO TID [facility] Last Admin: 12/23/18 13:16 Dose: 75 mg Pyridoxine HCl (Vitamin B6 -) 100 mg PO DAILY [facility] Last Admin: 12/23/18 10:09 Dose: 100 mg Roflumilast (Daliresp -) 500 mcg PO DAILY [facility] Last Admin: 12/23/18 10:09 Dose: 500 mcg Rosuvastatin Calcium (Crestor -) 10 mg PO [facility] Last Admin: 12/22/18 22:00 Dose: 10 mg Trazodone HCl (Desyrel -) 50 mg PO [facility] Last Admin: 12/22/18 22:00 Dose: 50 mg - Objective Vital Signs: Vital Signs Temperature 98.2 F 12/23/18 07:02 Pulse Rate 86 12/23/18 07:02 Respiratory Rate 20 12/23/18 07:02 Blood Pressure 95/55 L 12/23/18 07:02 O2 Sat by Pulse Oximetry (%) 96 12/22/18 03:00 Constitutional: Yes: No Distress, Calm Eyes: Yes: Conjunctiva Clear HENT: Yes: Atraumatic Cardiovascular: Yes: Regular Rate and Rhythm Respiratory: Yes: Regular, CTA Bilaterally Gastrointestinal: Yes: Normal Bowel Sounds, Soft, Other (non tender) Musculoskeletal: Yes: Muscle Weakness Extremities: Yes: WNL Edema: No Peripheral Pulses WNL: No Wound/Incision: Yes: Dressing Dry and Intact Neurological: Yes: Alert, Oriented Psychiatric: Yes: Alert, Oriented Labs: CBC, BMP 12/21/18 07:00 12/21/18 07:00 INR, PTT INR 1.02 (0.83-1.09) 12/18/18 17:45 Microbiology 12/18/18 18:15 Urine - Urine Clean Catch Urine Culture - Final NO GROWTH OBTAINED Problem List - Problems (1) Chronic back pain Assessment/Plan: -continue with fentanyl patch -monitor for pain control Code(s): M54.9 - DORSALGIA, UNSPECIFIED; G89.29 - OTHER CHRONIC PAIN (2) Fall Assessment/Plan: -PT -fall precaution -neurology on board Code(s): W19.XXXA - UNSPECIFIED FALL, INITIAL ENCOUNTER Qualifiers: Encounter type: initial encounter Qualified Code(s): W19.XXXA - Unspecified fall, initial encounter (3) Skin tear of elbow without complication Assessment/Plan: -change dressing daily -bactroban applied to affected area Code(s): S51.019A - LACERATION WITHOUT FOREIGN BODY OF UNSP ELBOW, INIT ENCNTR (4) Syncope Assessment/Plan: -fall precaution -cardiology on board -echo EF 60-65% Code(s): R55 - SYNCOPE AND COLLAPSE (5) COPD (chronic obstructive pulmonary disease) Assessment/Plan: -continue with ventolin IH, symbicort -O2 via [place] PRN for SOB -keep SpO2 >90% Code(s): J44.9 - CHRONIC OBSTRUCTIVE PULMONARY DISEASE, UNSPECIFIED Assessment/Plan see problem list dvt ppx
--- NOTE | 2018-12-23 15:13 | DS ---
Physical Examination Vital Signs: Vital Signs Temperature 97.5 F L 12/23/18 10:00 Pulse Rate 100 H 12/23/18 10:00 Respiratory Rate 18 12/23/18 10:00 Blood Pressure 100/61 12/23/18 10:00 O2 Sat by Pulse Oximetry (%) 96 12/23/18 09:00 Findings/Remarks: Patient is 73 y/o female with past medical history of chronic back painHTN, HLD , COPD, IBS, Hiatal hernia, L eye blindness. Patient presented to ER with syncope and fall. Urine culture collected and negative. Lumbar spine MRI shows chronic compression deformities of L2, L3, L4, L5. Head CT scan unremarkable. Patient evaluated by Cardiology and Neurology while in patient. Patient had physcal therapy evaluation and will have PT services set up for patient at home. Constitutional: Yes: No Distress, Calm Eyes: Yes: Conjunctiva Clear HENT: Yes: Atraumatic Cardiovascular: Yes: Regular Rate and Rhythm Respiratory: Yes: Regular, CTA Bilaterally Gastrointestinal: Yes: Normal Bowel Sounds, Soft, Other (non tender) Musculoskeletal: Yes: Muscle Weakness Extremities: Yes: WNL Edema: No Wound/Incision: Yes: Dressing Dry and Intact Neurological: Yes: Alert, Oriented Psychiatric: Yes: Alert, Oriented Labs: CBC, BMP 12/21/18 07:00 12/21/18 07:00 Microbiology 12/18/18 18:15 Urine - Urine Clean Catch Urine Culture - Final NO GROWTH OBTAINED Active Medications Generic Name Dose Route Start Last Admin Trade Name Freq PRN Reason Stop Dose Admin Acetaminophen 650 mg 12/19/18 15:03 12/23/18 13:13 Tylenol - PO 650 mg Q6H PRN Administration PAIN LEVEL 1-5 Albuterol Sulfate 2 puff 12/19/18 15:03 Ventolin Hfa Inhaler - IH Q8H PRN SHORT OF BREATH/WHEEZING Budesonide/Formoterol Fumarate 2 puff 12/19/18 22:00 12/23/18 10:09 Symbicort 160/4.5mcg - IH 2 puff BID GEORGES Administration Calcium Carbonate 500 mg 12/19/18 22:00 12/23/18 10:09 Os-Petey 500mg - PO 500 mg BID GEORGES Administration Cyanocobalamin 1,000 mcg 12/21/18 10:00 12/23/18 10:08 Vitamin B12 Injection - IM 1,000 mcg DAILY GE[place]GES Administration Diazepam 5 mg 12/19/18 22:00 12/23/18 10:08 Valium - PO 5 mg BID GEORGES Administration Docusate Sodium 100 mg 12/19/18 15:05 12/22/18 22:18 Colace - PO 100 mg BID PRN Administration CONSTIPATION Fentanyl 1 patch 12/21/18 10:00 12/21/18 09:53 Duragesic 50mcg Patch - TD 1 patch Q72H [place]ES Administration Heparin Sodium (Porcine) 5,000 unit 12/19/18 22:00 12/23/18 10:08 Heparin - SQ 5,000 unit BID GEORGES Administration Miscellaneous 1 each 12/21/18 10:00 Duragesic Patch Waste TD PRN PRN PATCH REMOVAL Multivitamins/Minerals/Vitamin C 1 tab 12/20/18 10:00 12/23/18 10:08 Tab-A-Vit - PO 1 tab DAILY GEORGES Administration Mupirocin 1 applic 12/19/18 22:00 12/23/18 10:09 Bactroban 2% Cream - TP 1 applic BID GEORGES Administration Oxycodone HCl 5 mg 12/19/18 14:17 12/23/18 13:12 Roxicodone - PO 5 mg Q4H PRN Administration PAIN LEVEL 6-10 Pantoprazole Sodium 40 mg 12/20/18 10:00 12/23/18 10:08 Protonix - PO 40 mg DAILY GE[place]GES Administration Polyethylene Glycol 17 gm 12/21/18 10:00 12/23/18 10:09 Miralax (For Daily Use) - PO 17 gm DAILY GE[place]GES Administration Pregabalin 75 mg 12/19/18 15:30 12/23/18 13:16 Lyrica - PO 75 mg TID GE[place]GES Administration Pyridoxine HCl 100 mg 12/20/18 10:00 12/23/18 10:09 Vitamin B6 - PO 100 mg DAILY GE[place]ES Administration Roflumilast 500 mcg 12/20/18 10:00 12/23/18 10:09 Daliresp - PO 500 mcg DAILY GE[place]GES Administration Rosuvastatin Calcium 10 mg 12/19/18 22:00 12/22/18 22:00 Crestor - PO 10 mg HS GE[place]ES Administration Trazodone HCl 50 mg 12/19/18 22:00 12/22/18 22:00 Desyrel - PO 50 mg HS GEORGES Administration Discharge Summary Reason For Visit: FALL Current Active Problems Chronic back pain (Acute) Fall (Acute) Severe malnutrition (Acute) Skin tear of elbow without complication (Acute) Syncope (Acute) Procedures: Principal: Carotid doppler study. Lumbar spine MRI. Foot/ankle xray. Echocardiogram. Head CT scan Hospital Course: see progress notes Laboratory Tests 12/18/18 12/18/18 12/18/18 17:45 17:45 17:45 WBC 7.4 RBC 3.42 L Hgb 11.2 Hct 31.7 L MCV 92.6 MCH 32.6 D MCHC 35.3 RDW 13.2 D Plt Count 164 MPV 8.5 Absolute Neuts (auto) 4.7 Neutrophils % 63.0 D Lymphocytes % 28.2 D Monocytes % 5.6 Eosinophils % 2.4 Basophils % 0.8 Nucleated RBC % 0 ESR PT with INR 12.00 INR 1.02 Sodium 138 Potassium 4.5 Chloride 104 Carbon Dioxide 29 Anion Gap 5 L BUN 13 Creatinine 0.8 Creat Clearance w eGFR > 60 Random Glucose 76 Calcium 8.4 L Phosphorus Magnesium 1.6 L Iron TIBC Iron Saturation Total Bilirubin 0.3 AST 9 L ALT 12 L Alkaline Phosphatase 57 Creatine Kinase 34 Troponin I < 0.02 C-Reactive Protein Total Protein 6.4 Albumin 3.4 Triglycerides Cholesterol Total LDL Cholesterol HDL Cholesterol Vitamin B12 Serum Folate TSH Urine Color Urine Appearance Urine pH Ur Specific [place] Urine Protein Urine Glucose (UA) Urine Ketones Urine Blood Urine Nitrite Urine Bilirubin Urine Urobilinogen Ur Leukocyte Esterase Urine WBC (Auto) Urine RBC (Auto) Ur Epithelial Cells Urine Bacteria RPR Titer Influenza A (Rapid) Influenza B (Rapid) 12/18/18 12/18/18 12/19/18 18:15 18:30 00:27 WBC RBC Hgb Hct MCV MCH MCHC RDW Plt Count MPV Absolute Neuts (auto) Neutrophils % Lymphocytes % Monocytes % Eosinophils % Basophils % Nucleated RBC % ESR PT with INR INR Sodium Potassium Chloride Carbon Dioxide Anion Gap BUN Creatinine Creat Clearance w eGFR Random Glucose Calcium Phosphorus Magnesium Iron TIBC Iron Saturation Total Bilirubin AST ALT Alkaline Phosphatase Creatine Kinase Troponin I < 0.02 C-Reactive Protein Total Protein Albumin Triglycerides Cholesterol Total LDL Cholesterol HDL Cholesterol Vitamin B12 Serum Folate TSH Urine Color Ltyellow Urine Appearance Clear Urine pH 5.0 Ur Specific [place] 1.013 Urine Protein Negative Urine Glucose (UA) Negative Urine Ketones Negative Urine Blood Negative Urine Nitrite Negative Urine Bilirubin Negative Urine Urobilinogen Negative Ur Leukocyte Esterase 2+ H Urine WBC (Auto) 4 Urine RBC (Auto) 1 Ur Epithelial Cells Rare Urine Bacteria Rare RPR Titer Influenza A (Rapid) Negative Influenza B (Rapid) Negative 12/19/18 12/19/18 12/19/18 00:27 05:30 05:30 WBC 7.2 RBC 3.22 L Hgb 10.3 L Hct 30.0 L MCV 93.2 MCH 32.1 MCHC 34.4 RDW 13.1 Plt Count 166 MPV 8.9 Absolute Neuts (auto) 4.4 Neutrophils % 61.4 Lymphocytes % 28.8 Monocytes % 5.2 Eosinophils % 3.7 Basophils % 0.9 Nucleated RBC % 0 ESR PT with INR INR Sodium 140 Potassium 4.3 Chloride 107 Carbon Dioxide 28 Anion Gap 5 L BUN 13 Creatinine 0.8 Creat Clearance w eGFR > 60 Random Glucose 78 Calcium 8.8 Phosphorus 5.1 H Magnesium 1.4 L Iron 44 TIBC 267 Iron Saturation 16 Total Bilirubin AST ALT Alkaline Phosphatase Creatine Kinase Troponin I < 0.02 C-Reactive Protein Total Protein Albumin Triglycerides 121 Cholesterol 115 Total LDL Cholesterol 59 HDL Cholesterol 32 L Vitamin B12 383 Serum Folate 14 TSH 1.66 Urine Color Urine Appearance Urine pH Ur Specific [place] Urine Protein Urine Glucose (UA) Urine Ketones Urine Blood Urine Nitrite Urine Bilirubin Urine Urobilinogen Ur Leukocyte Esterase Urine WBC (Auto) Urine RBC (Auto) Ur Epithelial Cells Urine Bacteria RPR Titer Influenza A (Rapid) Influenza B (Rapid) 12/20/18 12/20/18 12/20/18 06:00 06:00 06:00 WBC 5.3 RBC 3.65 Hgb 11.6 Hct 33.9 MCV 93.0 MCH 31.8 MCHC 34.2 RDW 13.4 Plt Count 195 MPV 9.0 Absolute Neuts (auto) 2.9 Neutrophils % 54.5 Lymphocytes % 32.6 Monocytes % 6.0 Eosinophils % 5.9 H Basophils % 1.0 Nucleated RBC % 0 ESR PT with INR INR Sodium 138 Potassium 4.3 Chloride 101 Carbon Dioxide 33 H Anion Gap 5 L BUN 14 Creatinine 0.8 Creat Clearance w eGFR > 60 Random Glucose 118 H Calcium 9.1 Phosphorus Magnesium 2.1 Iron TIBC Iron Saturation Total Bilirubin 0.5 AST 12 L ALT 13 Alkaline Phosphatase 60 Creatine Kinase Troponin I C-Reactive Protein 4.6 H Total Protein 6.7 Albumin 3.5 Triglycerides Cholesterol Total LDL Cholesterol HDL Cholesterol Vitamin B12 Serum Folate TSH Urine Color Urine Appearance Urine pH Ur Specific [place] Urine Protein Urine Glucose (UA) Urine Ketones Urine Blood Urine Nitrite Urine Bilirubin Urine Urobilinogen Ur Leukocyte Esterase Urine WBC (Auto) Urine RBC (Auto) Ur Epithelial Cells Urine Bacteria RPR Titer Nonreactive Influenza A (Rapid) Influenza B (Rapid) 12/20/18 12/21/18 12/21/18 06:00 07:00 07:00 WBC 4.9 RBC 3.39 L Hgb 10.8 Hct 31.4 L MCV 92.5 MCH 32.0 MCHC 34.6 RDW 13.3 Plt Count 195 MPV 9.2 Absolute Neuts (auto) Neutrophils % Lymphocytes % Monocytes % Eosinophils % Basophils % Nucleated RBC % ESR 29 PT with INR INR Sodium 133 L Potassium 4.4 Chloride 97 L Carbon Dioxide 30 Anion Gap 6 L BUN 20 H Creatinine 0.7 Creat Clearance w eGFR > 60 Random Glucose 134 H Calcium 9.1 Phosphorus Magnesium Iron TIBC Iron Saturation Total Bilirubin 0.4 AST 9 L ALT 12 L Alkaline Phosphatase 60 Creatine Kinase Troponin I C-Reactive Protein Total Protein 6.5 Albumin 3.4 Triglycerides Cholesterol Total LDL Cholesterol HDL Cholesterol Vitamin B12 Serum Folate TSH Urine Color Urine Appearance Urine pH Ur Specific [place] Urine Protein Urine Glucose (UA) Urine Ketones Urine Blood Urine Nitrite Urine Bilirubin Urine Urobilinogen Ur Leukocyte Esterase Urine WBC (Auto) Urine RBC (Auto) Ur Epithelial Cells Urine Bacteria RPR Titer Influenza A (Rapid) Influenza B (Rapid) Active Medications Generic Name Dose Route Start Last Admin Trade Name Freq PRN Reason Stop Dose Admin Acetaminophen 650 mg 12/19/18 15:03 12/23/18 13:13 Tylenol - PO 650 mg Q6H PRN Administration PAIN LEVEL 1-5 Albuterol Sulfate 2 puff 12/19/18 15:03 Ventolin Hfa Inhaler - IH Q8H PRN SHORT OF BREATH/WHEEZING Budesonide/Formoterol Fumarate 2 puff 12/19/18 22:00 12/23/18 10:09 Symbicort 160/4.5mcg - IH 2 puff BID [place]ES Administration Calcium Carbonate 500 mg 12/19/18 22:00 12/23/18 10:09 Os-Petey 500mg - PO 500 mg BID GE[place]ES Administration Cyanocobalamin 1,000 mcg 12/21/18 10:00 12/23/18 10:08 Vitamin B12 Injection - IM 1,000 mcg DAILY GE[place]ES Administration Diazepam 5 mg 12/19/18 22:00 12/23/18 10:08 Valium - PO 5 mg BID GE[place]ES Administration Docusate Sodium 100 mg 12/19/18 15:05 12/22/18 22:18 Colace - PO 100 mg BID PRN Administration CONSTIPATION Fentanyl 1 patch 12/21/18 10:00 12/21/18 09:53 Duragesic 50mcg Patch - TD 1 patch Q72H [place] Administration Heparin Sodium (Porcine) 5,000 unit 12/19/18 22:00 12/23/18 10:08 Heparin - SQ 5,000 unit BID GE[place]ES Administration Miscellaneous 1 each 12/21/18 10:00 Duragesic Patch Waste TD PRN PRN PATCH REMOVAL Multivitamins/Minerals/Vitamin C 1 tab 12/20/18 10:00 12/23/18 10:08 Tab-A-Vit - PO 1 tab DAILY [place] Administration Mupirocin 1 applic 12/19/18 22:00 12/23/18 10:09 Bactroban 2% Cream - TP 1 applic BID GE[place]ES Administration Oxycodone HCl 5 mg 12/19/18 14:17 12/23/18 13:12 Roxicodone - PO 5 mg Q4H PRN Administration PAIN LEVEL 6-10 Pantoprazole Sodium 40 mg 12/20/18 10:00 12/23/18 10:08 Protonix - PO 40 mg DAILY [place] Administration Polyethylene Glycol 17 gm 12/21/18 10:00 12/23/18 10:09 Miralax (For Daily Use) - PO 17 gm DAILY [place] Administration Pregabalin 75 mg 12/19/18 15:30 12/23/18 13:16 Lyrica - PO 75 mg TID GE[place]ES Administration Pyridoxine HCl 100 mg 12/20/18 10:00 12/23/18 10:09 Vitamin B6 - PO 100 mg DAILY [place] Administration Roflumilast 500 mcg 12/20/18 10:00 12/23/18 10:09 Daliresp - PO 500 mcg DAILY GE[place]ES Administration Rosuvastatin Calcium 10 mg 12/19/18 22:00 12/22/18 22:00 Crestor - PO 10 mg HS GE[place]ES Administration Trazodone HCl 50 mg 12/19/18 22:00 12/22/18 22:00 Desyrel - PO 50 mg HS GE[place]ES Administration Microbiology 12/18/18 18:15 Urine - Urine Clean Catch Urine Culture - Final NO GROWTH OBTAINED Condition: Stable - Instructions Diet, Activity, Other Instructions: Follow up with PMD in 1 week Follow up with Neurology Dr. Major Continue with current med regimen [facility] services set up for PT and [employer] return to ER if complaints of pain, chest pain, SOB, recurrent fall Referrals: Rashad Keen MD [Primary Care Provider] - Ismael Black MD [Staff Physician] - uGi Hendricks MD [Staff Physician] - Disposition: [facility]/HOME HEALTH CARE - Home Medications Comprehensive Discharge Medication List: Ambulatory Orders Calcium (Oyster Shell) [Os-Petey 500MG -] 500 mg PO BID 08/22/13 FENTANYL 50mcg PATCH [DURAGESIC 50 mcg PATCH -] 1 each TD Q72H 08/22/13 Lubiprostone [Amitiza] 24 mcg PO DAILY PRN 08/22/13 Multivitamin [Multivitamins] 1 each PO DAILY 08/22/13 Roflumilast [Daliresp -] 500 mcg PO DAILY 08/22/13 Metoprolol Succinate [Toprol XL -] 25 mg PO DAILY #0 tab.sr.24h 08/28/13 Pyridoxine HCl (B-6) [Vitamin B6 -] 100 mg PO DAILY #0 tablet 08/28/13 Albuterol Sulfate [Proair Hfa -] 1 - 2 inh PO TID 12/15/13 Budesonide/Formeterol Fumarate [SYMBICORT 160/4.5mcg -] 2 inh PO BID 12/15/13 Rosuvastatin Calcium [Crestor] 10 mg PO DAILY 06/03/14 Acetaminophen [Tylenol .Extra-Strength -] 1,000 mg PO Q6H 05/26/15 Diazepam [Valium] 5 mg PO BID 05/26/15 Pregabalin [Lyrica -] 75 mg PO TID 05/26/15 traZODone HCL [Trazodone HCl] 50 mg PO HS 11/15/17 Docusate Sodium [Colace -] 100 mg PO BID PRN #30 capsule 11/17/17 Pantoprazole Sodium [Protonix -] 40 mg PO DAILY #30 tablet.ec 11/17/17 oxyCODONE HCL [Roxicodone -] 5 mg PO Q4H PRN 5 Days #30 tablet MDD 6 11/17/17 traZODone HCL [Desyrel -] 50 mg PO HS #30 tablet 11/17/17
[2018-12-23 15:17] VITALS: BP 114/86; PULSE 112; TEMP 97.9
--- NOTE | 2018-12-23 20:19 | EKG ---
Test Reason : Blood Pressure : / mmHG Vent. Rate : 091 BPM Atrial Rate : 091 BPM P-R Int : 162 ms QRS Dur : 080 ms QT Int : 348 ms P-R-T Axes : 071 051 068 degrees QTc Int : 428 ms NORMAL SINUS RHYTHM NORMAL ECG WHEN COMPARED WITH ECG OF 18-DEC-2018 16:01, VENT. RATE HAS INCREASED BY 31 BPM Confirmed by VIRGINIA CM MD ([id number]) on 12/23/2018 8:18:49 PM Referred By: LEELA PAYNE Confirmed By:VIRGINIA CM MD
== END 2018-12-23 17:13 | disposition home health service (06) ==
LOC: JER 15:46 → INTOOBSV 20:23 → UNDOADMOB 20:23 → JERBED 20:23 → J6S 12-19 13:34
PROVIDERS: ADMIT Family Medicine; ATTEND Family Medicine
PROC: 3E033NZ Introduction of Analgesics, Hypnotics, Sedatives into Peripheral Vein, Percutaneous Approach (ICD-10-PCS; principal; 2018-12-18)
PROC: 3E033GC Introduction of Other Therapeutic Substance into Peripheral Vein, Percutaneous Approach (ICD-10-PCS; 2018-12-18)
PROC: 3E013GC Introduction of Other Therapeutic Substance into Subcutaneous Tissue, Percutaneous Approach (ICD-10-PCS; 2018-12-18)
PROC: 3E0233Z Introduction of Anti-inflammatory into Muscle, Percutaneous Approach (ICD-10-PCS; 2018-12-18)
PROC: 3E0F7GC Introduction of Other Therapeutic Substance into Respiratory Tract, Via Natural or Artificial Opening (ICD-10-PCS; 2018-12-18)
PROC: 3E0234Z Introduction of Serum, Toxoid and Vaccine into Muscle, Percutaneous Approach (ICD-10-PCS; 2018-12-18)
DX: Z04.3 Encounter for examination and observation following other accident (principal); S41.101A Unspecified open wound of right upper arm, initial encounter; S09.90XA Unspecified injury of head, initial encounter; S50.311A Abrasion of right elbow, initial encounter; W18.09XA Striking against other object with subsequent fall, initial encounter; Y93.01 Activity, walking, marching and hiking; Y92.003 Bedroom of unspecified non-institutional (private) residence as the place of occurrence of the external cause; R55 Syncope and collapse; I10 Essential (primary) hypertension; E78.5 Hyperlipidemia, unspecified; J43.9 Emphysema, unspecified; K58.9 Irritable bowel syndrome, unspecified; K44.9 Diaphragmatic hernia without obstruction or gangrene; M19.90 Unspecified osteoarthritis, unspecified site; G89.29 Other chronic pain; H54.40 Blindness, one eye, unspecified eye; G57.91 Unspecified mononeuropathy of right lower limb; M54.9 Dorsalgia, unspecified; R26.89 Other abnormalities of gait and mobility; M72.2 Plantar fascial fibromatosis; E43 Unspecified severe protein-calorie malnutrition; Z68.1 Body mass index [BMI] 19.9 or less, adult; Z87.891 Personal history of nicotine dependence; Z97.0 Presence of artificial eye; Z88.2 Allergy status to sulfonamides; Z88.6 Allergy status to analgesic agent
CPT/HCPCS: 36415; 70450-TC; 71101-TC-RT-FY; 72125-TC; 72148-TC; 73070-TC-RT-FY; 73610-TC-RT-FY; 73630-TC-RT-FY; 80048; 80053; 80061; 81003; 81015; 82550; 82607; 82746; 83540; 83550; 83721; 83735; 84100; 84443; 84484; 85025; 85027; 85610; 85651; 86140; 86593; 87086; 87804; 90471; 90715; 93005; 93010; 93306-TC; 93880-TC; 94640; 96372; 96374; 96375; 97116-GP; 97161-GP; 99283-25; G0378; J0131; J1644; J7030

== ENCOUNTER 2020-09-22 08:49 | Day surgery (SDC) | payer OTHER ==
[2020-09-20 15:39] VITALS: BMI 15.5
[2020-09-22 09:51] VITALS: TEMP 97.9
[2020-09-22] MEDS ORDERED: LIDOCAINE HCL/PF 2% SDV 5ML VIAL ONE (11:09)
[2020-09-22] MEDS ORDERED: PROPOFOL 20 ML ONE ×2 (11:09)
[2020-09-22 13:27] VITALS: BP 109/78; PULSE 65
== END 2020-09-22 12:45 | disposition home or self-care (01) ==
LOC: FASU-ENDO 08:49
PROVIDERS: ATTEND Internal Medicine Gastroenterology
PROC: 0DB68ZX Excision of Stomach, Via Natural or Artificial Opening Endoscopic, Diagnostic (ICD-10-PCS; 2020-09-22)
PROC: 0DB48ZX Excision of Esophagogastric Junction, Via Natural or Artificial Opening Endoscopic, Diagnostic (ICD-10-PCS; 2020-09-22)
PROC: 0DB98ZX Excision of Duodenum, Via Natural or Artificial Opening Endoscopic, Diagnostic (ICD-10-PCS; principal; 2020-09-22 11:12)
DX: K29.50 Unspecified chronic gastritis without bleeding (principal); R10.13 Epigastric pain
CPT/HCPCS: 88305-TC; 88342-TC

== ENCOUNTER 2021-10-05 07:13 | Day surgery (SDC) | payer OTHER ==
[2021-10-05] MEDS ORDERED: IRON SUCROSE INJECTION 200 MG in SODIUM CHLORIDE 100 ML IVPB ONE (14:00)
[2021-10-05 15:26] VITALS: TEMP 98.1
[2021-10-05 18:29] VITALS: BP 102/59; PULSE 72
== END 2021-10-05 14:30 | disposition home or self-care (01) ==
LOC: JONCNONCHE 07:13
PROVIDERS: ATTEND Internal Medicine Hematology & Oncology
PROC: 3E033GC Introduction of Other Therapeutic Substance into Peripheral Vein, Percutaneous Approach (ICD-10-PCS; principal; 2021-10-05)
DX: D50.9 Iron deficiency anemia, unspecified (principal)
CPT/HCPCS: 96365; J1756

== ENCOUNTER 2021-10-12 07:06 | Day surgery (SDC) | payer OTHER ==
[2021-10-12] MEDS ORDERED: IRON SUCROSE INJECTION 200 MG in SODIUM CHLORIDE 100 ML IVPB ONE (14:00)
[2021-10-12 17:59] VITALS: TEMP 97.2
[2021-10-12 18:01] VITALS: BP 109/70; PULSE 78
== END 2021-10-12 14:15 | disposition home or self-care (01) ==
LOC: JONCNONCHE 07:06
PROVIDERS: ATTEND Internal Medicine Hematology & Oncology
PROC: 3E033GC Introduction of Other Therapeutic Substance into Peripheral Vein, Percutaneous Approach (ICD-10-PCS; principal; 2021-10-12)
DX: D50.9 Iron deficiency anemia, unspecified (principal)
CPT/HCPCS: 96365; J1756

== ENCOUNTER 2021-10-28 17:00 | Day surgery (SDC) | payer OTHER ==
[2021-10-28 16:36] VITALS: BP 106/68; PULSE 100; TEMP 98.7
[~2021-10-28 17:00] MED LIST: IRON SUCROSE INJECTION 200 MG in SODIUM CHLORIDE 100 ML IVPB ONE
== END 2021-10-28 17:22 | disposition home or self-care (01) ==
LOC: JONCNONCHE 17:00 → J7W 17:01 → JONCNONCHE 17:22
PROVIDERS: ATTEND Internal Medicine Hematology & Oncology
PROC: 3E033GC Introduction of Other Therapeutic Substance into Peripheral Vein, Percutaneous Approach (ICD-10-PCS; principal; 2021-10-28)
DX: D50.9 Iron deficiency anemia, unspecified (principal)
CPT/HCPCS: 96365; J1756

== ENCOUNTER 2021-11-02 07:05 | Day surgery (SDC) | payer OTHER ==
[2021-11-02] MEDS ORDERED: IRON SUCROSE INJECTION 200 MG in SODIUM CHLORIDE 100 ML IVPB ONE (11:00)
[2021-11-02 16:54] VITALS: BP 87/52; TEMP 97.8
[2021-11-02 16:55] VITALS: PULSE 72
== END 2021-11-02 14:40 | disposition home or self-care (01) ==
LOC: JONCNONCHE 07:05
PROVIDERS: ATTEND Internal Medicine Hematology & Oncology
PROC: 3E033GC Introduction of Other Therapeutic Substance into Peripheral Vein, Percutaneous Approach (ICD-10-PCS; principal; 2021-11-02)
DX: D50.9 Iron deficiency anemia, unspecified (principal)
CPT/HCPCS: 96365; J1756

== ENCOUNTER 2022-01-28 15:50 | Inpatient (IN) | payer OTHER ==
[2022-01-28] MEDS ORDERED: ONDANSETRON 4 MG/2 ML VIAL IVPB ONE (16:02)
[2022-01-28] MEDS ORDERED: SODIUM CHLORIDE 0.9% 500 ML INFUS.BAG IV ONE ×2 (16:02→16:43)
[2022-01-28] MEDS ORDERED: FAMOTIDINE 20 MG/50 ML IVPB 20 MG in PREMIX 50 IVPB ONE (16:02)
[2022-01-28] MEDS ORDERED: MAG HYDROX/AL HYDROX/SIMETH -MYLANTA- ORAL SUSPENSION PO ONE (16:02)
[2022-01-28 16:34] LABS: VENOUS BASE EXCESS -20.6 mmol/L (-2-2); VENOUS O2 SATURATION 36.5 % (70-80); VENOUS PCO2 46.7 mmHg (38-52)
[2022-01-28] MEDS ORDERED: MAG HYDROX/AL HYDROX/SIMETH 30 ML UNIT-DOSE CUP ONE (16:36)
[2022-01-28] MEDS ORDERED: FAMOTIDINE 20 MG/50 ML IVPB 20 MG/50 ML MG IVPB ONE (16:36)
[2022-01-28] MEDS ORDERED: ONDANSETRON 4 MG/2 ML VIAL ONE (16:36)
[2022-01-28 16:41] LABS: VENOUS PH 6.983 (7.310-7.410)
[2022-01-28 16:45] LABS: HEMATOCRIT 44.5 % (32.4-45.2); HEMOGLOBIN 13.7 GM/dL (10.7-15.3); MCH 30.2 pg (25.7-33.7); MCHC 30.8 g/dl (32.0-36.0); MEAN PLT VOLUME 10.5 fl (7.5-11.1); PLATELET COUNT 200 10^3/uL (134-434); RBC 4.54 M/mm3 (3.60-5.2); RDW 15.6 % (11.6-15.6); WHITE BLOOD COUNT 14.6 K/mm3 (4.0-10.0)
[2022-01-28] MEDS ORDERED: VANCOMYCIN 1,000 MG in DEXTROSE 5%-WATER - 250 ML IVPB ONE (16:51)
[2022-01-28] MEDS ORDERED: CEFEPIME HCL/D5W 1 GM/50 ML BAG IVPB ONE (16:52)
[2022-01-28 16:58] LABS: CALCIUM 9.3 mg/dL (8.5-10.1)
[2022-01-28 16:59] LABS: ALBUMIN 4.4 g/dl (3.4-5.0); BLOOD UREA NITROGEN 25.2 mg/dL (7-18)
[2022-01-28 17:02] LABS: CREATININE 1.9 mg/dL (0.55-1.3)
[2022-01-28 17:03] LABS: BILIRUBIN,TOTAL 0.8 mg/dL (0.2-1); TOT PROT 8.4 g/dl (6.4-8.2)
[2022-01-28] MEDS ORDERED: VANCOMYCIN 1 GRAM (PRE-DOCKED) 1,000 MG/250 ML BAG IVPB ONE (17:19)
[2022-01-28] MEDS ORDERED: CEFEPIME 1 GM/100 ML BAG IVPB ONE (17:19)
[2022-01-28 17:35] LABS: ALBUMIN 4.1 g/dl (3.4-5.0); CALCIUM 8.4 mg/dL (8.5-10.1)
[2022-01-28 17:36] LABS: BLOOD UREA NITROGEN 23.9 mg/dL (7-18)
[2022-01-28 17:37] LABS: ANISOCYTOSIS 1+; MACROCYTOSIS 1+
[2022-01-28 17:38] LABS: CREATININE 1.8 mg/dL (0.55-1.3)
[2022-01-28 17:40] LABS: BILIRUBIN,TOTAL 0.5 mg/dL (0.2-1); TOT PROT 7.2 g/dl (6.4-8.2)
[2022-01-28] MEDS ORDERED: THIAMINE HCL 200 MG/2 ML VIAL IVPB ONE (17:54)
[2022-01-28 17:57] LABS: LYMPH % 5.2 % (8-40)
[2022-01-28 17:58] LABS: BASO % 0.3 % (0-2.0); EOS % 0.1 % (0-4.5); MONO % 4.4 % (3.8-10.2)
[2022-01-28 18:00] LABS: PLATELET ESTIMATE ADEQUATE
[2022-01-28] MEDS ORDERED: DEXTROSE 5%-WATER - 1,000 ML IV SCH (18:00)
[2022-01-28] MEDS ORDERED: THIAMINE HCL 200 MG/2 ML VIAL ONE (18:24)
[2022-01-28] MEDS ORDERED: METOCLOPRAMIDE HCL INJECTION 10 MG/2 ML VIAL IVPB ONE (20:40)
[2022-01-28] MEDS ORDERED: LACTATED RINGERS SOLUTION 1,000 ML/1,000 ML INFUS.BAG IV STA (20:41)
[2022-01-28] MEDS ORDERED: ACETAMINOPHEN 1000 MG/100 ML BAG IVPB ONE (20:41)
[2022-01-28] MEDS ORDERED: ACETAMINOPHEN INJECTION 100 ML IVPB ONE (21:32)
[2022-01-28] MEDS ORDERED: METOCLOPRAMIDE HCL INJECTION 10 MG/2 ML VIAL ONE (21:32)
[2022-01-28 23:37] LABS: VENOUS BASE EXCESS -16.5 mmol/L (-2-2); VENOUS O2 SATURATION 55.2 % (70-80); VENOUS PCO2 39.6 mmHg (38-52)
[2022-01-28 23:38] LABS: VENOUS PH 7.109 (7.310-7.410)
[2022-01-29] MEDS ORDERED: POLYETHYLENE GLYCOL (HEALTHYLAX) 3350 17 GM PACKET PO PRN (01:24)
[2022-01-29] MEDS ORDERED: DEXTROSE 5%-NORMAL SALINE 1,000 ML IV SCH (01:30)
[2022-01-29 04:27] LABS: EPI CELLS 4 /uL (0-25.1); HYALINE CASTS 1 /uL (0-3.1); URINE APPEARANCE CLEAR; URINE BACTERIA 8 /uL (0-1359); URINE BILIRUBIN NEGATIVE (NEGATIVE); URINE COLOR YELLOW; URINE GLUCOSE (UA) NEGATIVE (NEGATIVE); URINE KETONE 4+ (NEGATIVE); URINE LEUK ESTERASE NEGATIVE (NEGATIVE); URINE NITRITE NEGATIVE (NEGATIVE); URINE PROTEIN 1+ (NEGATIVE); URINE RBC 15 /uL (0-23.9); URINE UROBILINOGEN 0.2 mg/dL (0.2-1.0); URINE WBC 16 /uL (0-25.8)
[2022-01-29] MEDS ORDERED: ALBUTEROL SO4 HFA INHALER IH PRN (04:44)
[2022-01-29] MEDS ORDERED: FENTANYL PATCH WASTE MC PRN (05:13)
[2022-01-29] MEDS ORDERED: oxyCODONE HCL 5 MG TABLET ONE (07:49)
[2022-01-29] MEDS ORDERED: PREGABALIN 100 MG CAPSULE ONE ×3 (07:50→21:40)
[2022-01-29] MEDS ORDERED: HEPARIN NA (PORCINE) 5,000 UNITS/ML 1ML VIAL ONE ×3 (07:50→21:40)
[2022-01-29] MEDS: oxyCODONE HCL 5 MG TABLET PO PRN (08:00)
[2022-01-29 08:08] LABS: BASO % 0.1 % (0-2.0); LYMPH % 10.4 % (8-40); MCH 30.9 pg (25.7-33.7); MCHC 33.4 g/dl (32.0-36.0); MEAN CELL VOLUME 92.4 fl (80-96); MEAN PLT VOLUME 10.1 fl (7.5-11.1); MONO % 8.1 % (3.8-10.2); NEUT % 81.4 % (42.8-82.8); PLATELET COUNT 109 10^3/uL (134-434); RBC 3.57 M/mm3 (3.60-5.2); RDW 14.9 % (11.6-15.6); WHITE BLOOD COUNT 10.2 K/mm3 (4.0-10.0)
[2022-01-29] MEDS: PREGABALIN 100 MG CAPSULE PO SCH ×3 (08:10→21:49)
[2022-01-29] MEDS: HEPARIN NA (PORCINE) 5,000 UNITS/ML 1ML VIAL SQ SCH ×3 (08:10→21:49)
[2022-01-29 08:13] LABS: MAGNESIUM 1.9 mg/dL (1.8-2.4)
[2022-01-29 08:17] LABS: PHOSPHOROUS 2.3 mg/dL (2.5-4.9)
[2022-01-29] MEDS ORDERED: fentaNYL 50mcg/hr PATCH.TD72 TD SCH (10:00)
[2022-01-29] MEDS ORDERED: metoPROLOL SUCCINATE 25 MG TAB.SR.24H (FP) ONE (10:05)
[2022-01-29] MEDS ORDERED: FOLIC ACID 1 MG TABLET (FP) ONE (10:05)
[2022-01-29] MEDS ORDERED: ASPIRIN COATED 81 MG TABLET.EC ONE (10:05)
[2022-01-29] MEDS ORDERED: PANTOPRAZOLE 40 MG TABLET ONE (10:05)
[2022-01-29] MEDS: ASPIRIN COATED 81 MG TABLET.EC PO SCH (10:32)
[2022-01-29] MEDS: ROFLUMILAST 500 MCG TABLET PO SCH (10:32)
[2022-01-29] MEDS: FLUTICASONE PROP 0.05% 16 GM NASAL SPRAY NS SCH (10:32)
[2022-01-29] MEDS: ESCITALOPRAM OXALATE 10 MG TABLET PO SCH (10:33)
[2022-01-29] MEDS: CALCIUM (OYSTER SHELL) 500 MG TABLET (FP) PO SCH ×2 (10:33→21:49)
[2022-01-29] MEDS: PANTOPRAZOLE 40 MG TABLET PO SCH (10:33)
[2022-01-29] MEDS: FOLIC ACID 1 MG TABLET (FP) PO SCH (10:33)
[2022-01-29] MEDS: METHIMAZOLE 5 MG TABLET PO SCH (10:33)
[2022-01-29] MEDS: metoPROLOL SUCCINATE 25 MG TAB.SR.24H (FP) PO SCH (10:40)
[2022-01-29] MEDS ORDERED: SODIUM BICARBONATE 8.4% 50 MEQ/50 ML DISP.SYRIN IVPUSH ONE (14:07)
[2022-01-29] MEDS ORDERED: SODIUM CHLORIDE 0.45% 1,000 ML with SODIUM BICARBONATE 8.4% - 75 MEQ IV SCH ×2 (14:15→15:00)
[2022-01-29] MEDS ORDERED: SODIUM BICARBONATE 8.4% - 50 ML ONE (15:18)
[2022-01-29] MEDS ORDERED: NAPH,MB-DB/K PH,MBDB POWDER PACKET ONE ×2 (15:18→21:40)
[2022-01-29] MEDS: NAPH,MB-DB/K PH,MBDB POWDER PACKET PO SCH ×2 (15:35→21:49)
[2022-01-29] MEDS: ACETAMINOPHEN 325 MG TABLET (FP) PO PRN ×2 (16:00→21:52)
[2022-01-29] MEDS ORDERED: ACETAMINOPHEN 325 MG TABLET (FP) ONE ×2 (16:22→21:50)
[2022-01-29 17:24] LABS: EPI CELLS 4 /uL (0-25.1); HYALINE CASTS 0 /uL (0-3.1); PH,URINE 5.5 (5.0-8.0); URINE APPEARANCE CLEAR; URINE BACTERIA 32 /uL (0-1359); URINE BILIRUBIN NEGATIVE (NEGATIVE); URINE COLOR YELLOW; URINE GLUCOSE (UA) NEGATIVE (NEGATIVE); URINE KETONE 3+ (NEGATIVE); URINE LEUK ESTERASE 3+ (NEGATIVE); URINE NITRITE NEGATIVE (NEGATIVE); URINE PROTEIN 1+ (NEGATIVE); URINE RBC 9 /uL (0-23.9); URINE UROBILINOGEN 0.2 mg/dL (0.2-1.0); URINE WBC 547 /uL (0-25.8)
[2022-01-29] MEDS ORDERED: traMADol HCL 50 MG TABLET ONE (21:39)
[2022-01-29] MEDS ORDERED: diazePAM 5 MG TABLET ONE (21:39)
[2022-01-29] MEDS: ROSUVASTATIN CA 10 MG TABLET PO SCH (21:48)
[2022-01-29] MEDS: traZODone HCL 50 MG TABLET (FP) PO SCH (21:48)
[2022-01-29] MEDS: diazePAM 5 MG TABLET PO SCH (21:49)
[2022-01-30] MEDS ORDERED: oxyCODONE HCL 5 MG TABLET ONE (00:22)
[2022-01-30] MEDS: oxyCODONE HCL 5 MG TABLET PO PRN ×3 (00:27→12:46)
[2022-01-30 02:36] VITALS: BMI 15.3
[2022-01-30] MEDS: HEPARIN NA (PORCINE) 5,000 UNITS/ML 1ML VIAL SQ SCH ×3 (06:48→21:51)
[2022-01-30] MEDS: PREGABALIN 100 MG CAPSULE PO SCH ×3 (06:49→21:48)
[2022-01-30 07:43] LABS: INR 1.03 (0.83-1.09); PROTHROMBIN TIME (PATIENT) 11.8 SEC (9.7-13.0)
[2022-01-30 07:45] LABS: ACTIVATED PTT 26.9 SECONDS (25.2-36.5)
[2022-01-30 08:08] LABS: CALCIUM 7.6 mg/dL (8.5-10.1)
[2022-01-30 08:09] LABS: BLOOD UREA NITROGEN 7.7 mg/dL (7-18); MAGNESIUM 1.8 mg/dL (1.8-2.4)
[2022-01-30 08:11] LABS: CREATININE 0.8 mg/dL (0.55-1.3)
[2022-01-30 08:13] LABS: BILIRUBIN,TOTAL 0.6 mg/dL (0.2-1); TOT PROT 5.3 g/dl (6.4-8.2)
[2022-01-30 08:18] LABS: ALBUMIN 2.6 g/dl (3.4-5.0)
[2022-01-30] MEDS: METHIMAZOLE 5 MG TABLET PO SCH (09:40)
[2022-01-30] MEDS: FLUTICASONE PROP 0.05% 16 GM NASAL SPRAY NS SCH (09:40)
[2022-01-30] MEDS: CALCIUM (OYSTER SHELL) 500 MG TABLET (FP) PO SCH ×2 (09:40→21:48)
[2022-01-30] MEDS: ESCITALOPRAM OXALATE 10 MG TABLET PO SCH (09:40)
[2022-01-30] MEDS: PANTOPRAZOLE 40 MG TABLET PO SCH (09:40)
[2022-01-30] MEDS: ASPIRIN COATED 81 MG TABLET.EC PO SCH (09:40)
[2022-01-30] MEDS: metoPROLOL SUCCINATE 25 MG TAB.SR.24H (FP) PO SCH (09:40)
[2022-01-30] MEDS: FOLIC ACID 1 MG TABLET (FP) PO SCH (09:40)
[2022-01-30] MEDS: ROFLUMILAST 500 MCG TABLET PO SCH (11:46)
[2022-01-30] MEDS: TIOTROPIUM BROMIDE 2.5 MCG (SPIRIVA) RESPIMAT INHALER IH SCH (11:46)
[2022-01-30] MEDS: BUDESONIDE/FORMETEROL FUMARATE 160/4.5 mcg INHALER IH SCH ×2 (11:46→22:20)
[2022-01-30] MEDS ORDERED: ONDANSETRON 4 MG TABLET PO PRN (12:14)
[2022-01-30] MEDS: diazePAM 5 MG TABLET PO SCH (21:48)
[2022-01-30] MEDS: traZODone HCL 50 MG TABLET (FP) PO SCH (21:48)
[2022-01-30] MEDS: ROSUVASTATIN CA 10 MG TABLET PO SCH (21:48)
[2022-01-30] MEDS: DOCUSATE SODIUM 100 MG CAPSULE (FP) PO PRN (21:56)
[2022-01-31] MEDS: PREGABALIN 100 MG CAPSULE PO SCH ×3 (06:09→21:32)
[2022-01-31] MEDS: HEPARIN NA (PORCINE) 5,000 UNITS/ML 1ML VIAL SQ SCH ×4 (06:09→21:34)
[2022-01-31 07:34] LABS: CALCIUM 7.8 mg/dL (8.5-10.1)
[2022-01-31 07:35] LABS: ALBUMIN 2.8 g/dl (3.4-5.0); BLOOD UREA NITROGEN 5.2 mg/dL (7-18)
[2022-01-31 07:37] LABS: PHOSPHOROUS 1.4 mg/dL (2.5-4.9)
[2022-01-31 07:38] LABS: CREATININE 0.6 mg/dL (0.55-1.3)
[2022-01-31 07:39] LABS: BILIRUBIN,TOTAL 0.6 mg/dL (0.2-1); TOT PROT 5.8 g/dl (6.4-8.2)
[2022-01-31] MEDS: TIOTROPIUM BROMIDE 2.5 MCG (SPIRIVA) RESPIMAT INHALER IH SCH (09:59)
[2022-01-31] MEDS: PANTOPRAZOLE 40 MG TABLET PO SCH (10:00)
[2022-01-31] MEDS: BUDESONIDE/FORMETEROL FUMARATE 160/4.5 mcg INHALER IH SCH ×2 (10:00→21:52)
[2022-01-31] MEDS: metoPROLOL SUCCINATE 25 MG TAB.SR.24H (FP) PO SCH (10:00)
[2022-01-31] MEDS: ASPIRIN COATED 81 MG TABLET.EC PO SCH (10:00)
[2022-01-31] MEDS: ROFLUMILAST 500 MCG TABLET PO SCH (10:00)
[2022-01-31] MEDS: METHIMAZOLE 5 MG TABLET PO SCH (10:01)
[2022-01-31] MEDS: CALCIUM (OYSTER SHELL) 500 MG TABLET (FP) PO SCH ×2 (10:01→21:32)
[2022-01-31] MEDS: ESCITALOPRAM OXALATE 10 MG TABLET PO SCH (10:01)
[2022-01-31] MEDS: FOLIC ACID 1 MG TABLET (FP) PO SCH (10:01)
[2022-01-31] MEDS: FLUTICASONE PROP 0.05% 16 GM NASAL SPRAY NS SCH (10:01)
[2022-01-31] MEDS ORDERED: SODIUM PHOSPHATE - 10 MM in DEXTROSE 5%-WATER - 250 ML IVPB ONE (10:57)
[2022-01-31] MEDS: NAPH,MB-DB/K PH,MBDB POWDER PACKET PO SCH ×2 (13:43→21:50)
[2022-01-31] MEDS: DOCUSATE SODIUM 100 MG CAPSULE (FP) PO PRN (15:55)
[2022-01-31] MEDS: traZODone HCL 50 MG TABLET (FP) PO SCH (21:32)
[2022-01-31] MEDS: ROSUVASTATIN CA 10 MG TABLET PO SCH (21:32)
[2022-01-31] MEDS: diazePAM 5 MG TABLET PO SCH (21:32)
[2022-01-31 21:51] VITALS: BP 142/72; PULSE 73; TEMP 99.1
== END 2022-01-31 22:55 | disposition left against medical advice (07) | DRG 682 ==
LOC: JER 15:50 → JERBED 19:04 → J4W 01-30 01:00
PROVIDERS: ADMIT Hospitalist; ATTEND Family Medicine
DX: N17.9 Acute kidney failure, unspecified (principal); E43 Unspecified severe protein-calorie malnutrition; E87.2 Acidosis; Z68.1 Body mass index [BMI] 19.9 or less, adult; R64 Cachexia; J44.9 Chronic obstructive pulmonary disease, unspecified; I10 Essential (primary) hypertension; E78.5 Hyperlipidemia, unspecified; K58.9 Irritable bowel syndrome, unspecified; K59.00 Constipation, unspecified; F32.9 Major depressive disorder, single episode, unspecified; G89.29 Other chronic pain; K44.9 Diaphragmatic hernia without obstruction or gangrene; D69.6 Thrombocytopenia, unspecified; R62.7 Adult failure to thrive; E88.81 Metabolic syndrome and other insulin resistance; E03.9 Hypothyroidism, unspecified; E86.0 Dehydration; R77.8 Other specified abnormalities of plasma proteins; M54.50 Low back pain, unspecified; E87.5 Hyperkalemia; K83.8 Other specified diseases of biliary tract; K31.89 Other diseases of stomach and duodenum; G57.91 Unspecified mononeuropathy of right lower limb; K29.00 Acute gastritis without bleeding; E83.39 Other disorders of phosphorus metabolism; M51.36 Other intervertebral disc degeneration, lumbar region; N28.1 Cyst of kidney, acquired
CPT/HCPCS: 36415; 70450-TC; 71045-TC-FY; 71250-TC; 74176-TC; 76775-TC; 80048; 80053; 81003; 82010; 82436; 82570; 82803; 83605; 83690; 83735; 84100; 84133; 84300; 84443; 84484; 85025; 85610; 85730; 87040; 87086; 93005; 93010; 97116-GP; 97161-GP; 99291; C9803-CS; J1644; U0003; U0005

== ENCOUNTER 2023-03-09 09:16 | Day surgery (SDC) | payer OTHER ==
[2023-03-09] MEDS ORDERED: IRON SUCROSE INJECTION 200 MG in SODIUM CHLORIDE 100 ML IVPB ONE (10:30)
[2023-03-09 11:58] VITALS: BP 100/69; PULSE 99; RESP 20; TEMP 97.7
== END 2023-03-09 10:20 | disposition home or self-care (01) ==
LOC: JONCNONCHE 09:16 → J7W 09:17 → JONCNONCHE 10:20
PROVIDERS: ATTEND Internal Medicine Hematology & Oncology
PROC: 3E033GC Introduction of Other Therapeutic Substance into Peripheral Vein, Percutaneous Approach (ICD-10-PCS; principal; 2023-03-09)
DX: D50.9 Iron deficiency anemia, unspecified (principal)
CPT/HCPCS: 96365; J1756

== ENCOUNTER 2023-03-16 09:31 | Day surgery (SDC) | payer OTHER ==
[~2023-03-16 09:31] MED LIST changes: +HYDROCORTISONE SOD SUCCINATE 100 MG/2 ML VIAL IVPUSH PRN; -IRON SUCROSE INJECTION 200 MG in SODIUM CHLORIDE 100 ML IVPB ONE; +diphenhydrAMINE HCL 25 MG CAPSULE (FP) PO PRN
[2023-03-16] MEDS ORDERED: IRON SUCROSE INJECTION 200 MG in SODIUM CHLORIDE 90 ML IVPB ONE (10:00)
[2023-03-16 17:01] VITALS: BP 111/65; PULSE 79; RESP 20; TEMP 97.7
== END 2023-03-16 10:50 | disposition home or self-care (01) ==
LOC: JONCNONCHE 09:31 → J7W 09:32 → JONCNONCHE 10:50
PROVIDERS: ATTEND Internal Medicine Hematology & Oncology
PROC: 3E033GC Introduction of Other Therapeutic Substance into Peripheral Vein, Percutaneous Approach (ICD-10-PCS; principal; 2023-03-16)
DX: E61.1 Iron deficiency (principal)
CPT/HCPCS: 96365; J1756

== ENCOUNTER 2023-03-23 09:29 | Day surgery (SDC) | payer OTHER ==
[2023-03-23] MEDS ORDERED: IRON SUCROSE INJECTION 200 MG in SODIUM CHLORIDE 90 ML IVPB ONE (10:00)
[2023-03-23 15:22] VITALS: TEMP 98
[2023-03-23 15:24] VITALS: BP 149/96; PULSE 55; RESP 22
== END 2023-03-23 11:00 | disposition home or self-care (01) ==
LOC: JONCNONCHE 09:29 → J7W 09:30 → JONCNONCHE 11:00
PROVIDERS: ATTEND Internal Medicine Hematology & Oncology
PROC: 3E033GC Introduction of Other Therapeutic Substance into Peripheral Vein, Percutaneous Approach (ICD-10-PCS; principal; 2023-03-23)
DX: D50.9 Iron deficiency anemia, unspecified (principal)
CPT/HCPCS: 96365; J1756

== ENCOUNTER 2023-03-30 09:52 | Day surgery (SDC) | payer OTHER ==
[2023-03-30] MEDS ORDERED: IRON SUCROSE COMPLEX 200 MG in SODIUM CHLORIDE 100 ML IVPB ONE (10:00)
[2023-03-30 16:17] VITALS: BP 106/67; PULSE 84; RESP 18; TEMP 97.8
== END 2023-03-30 10:42 | disposition home or self-care (01) ==
LOC: JONCNONCHE 09:52 → J7W 09:53 → JONCNONCHE 10:42
PROVIDERS: ATTEND Internal Medicine Hematology & Oncology
PROC: 3E013GC Introduction of Other Therapeutic Substance into Subcutaneous Tissue, Percutaneous Approach (ICD-10-PCS; principal; 2023-03-30)
DX: E61.1 Iron deficiency (principal)
CPT/HCPCS: 96365

== ENCOUNTER 2023-04-06 09:12 | Day surgery (SDC) | payer OTHER ==
[2023-04-06] MEDS ORDERED: IRON SUCROSE COMPLEX 200 MG in SODIUM CHLORIDE 100 ML IVPB ONE (10:00)
[2023-04-06 14:25] VITALS: RESP 20; TEMP 97.5
[2023-04-06 14:31] VITALS: BP 118/78; PULSE 101
== END 2023-04-06 10:45 | disposition home or self-care (01) ==
LOC: JONCNONCHE 09:12 → J7W 09:13 → JONCNONCHE 10:45
PROVIDERS: ATTEND Internal Medicine Hematology & Oncology
PROC: 3E033GC Introduction of Other Therapeutic Substance into Peripheral Vein, Percutaneous Approach (ICD-10-PCS; principal; 2023-04-06)
DX: E61.1 Iron deficiency (principal)
CPT/HCPCS: 96365

== ENCOUNTER 2023-04-24 11:22 | Inpatient (IN) | payer OTHER ==
[2023-04-24] MEDS ORDERED: ACETAMINOPHEN 1000 MG/100 ML BAG IVPB ONE (12:22)
[2023-04-24] MEDS ORDERED: ONDANSETRON 4 MG/2 ML VIAL IVPUSH ONE (12:22)
[2023-04-24] MEDS ORDERED: SODIUM CHLORIDE 0.9% 500 ML INFUS.BAG IV ONE (12:26)
[2023-04-24] MEDS ORDERED: ONDANSETRON 4 MG/2 ML VIAL ONE (12:34)
[2023-04-24] MEDS ORDERED: ACETAMINOPHEN INJECTION 100 ML IVPB ONE (12:34)
[2023-04-24 13:14] LABS: BASO % 0.4 % (0-2.0); EOS % 0.1 % (0-4.5); HEMATOCRIT 43.1 % (32.4-45.2); HEMOGLOBIN 14.5 GM/dL (10.7-15.3); LYMPH % 14.4 % (8-40); MCH 29.5 pg (25.7-33.7); MCHC 33.7 g/dl (32.0-36.0); MEAN CELL VOLUME 87.6 fl (80-96); MEAN PLT VOLUME 9.3 fl (7.5-11.1); MONO % 5.1 % (3.8-10.2); PLATELET COUNT 187 10^3/uL (134-434); RBC 4.92 M/mm3 (3.60-5.2); WHITE BLOOD COUNT 5.6 K/mm3 (4.0-10.0)
[2023-04-24 13:31] LABS: CHLORIDE 93 mmol/L (98-107); SODIUM 127 mmol/L (136-145)
[2023-04-24 13:33] LABS: CALCIUM 9.6 mg/dL (8.5-10.1); GLUCOSE,RANDOM 91 mg/dL (74-106)
[2023-04-24 13:34] LABS: ALBUMIN 4.2 g/dl (3.4-5.0); BLOOD UREA NITROGEN 11.2 mg/dL (7-18); CO2 28 mmol/L (21-32)
[2023-04-24 13:37] LABS: CREATININE 0.7 mg/dL (0.55-1.3); SGOT/AST 70 U/L (15-37)
[2023-04-24 13:38] LABS: BILIRUBIN,TOTAL 0.8 mg/dL (0.2-1); TOT PROT 8.2 g/dl (6.4-8.2)
[2023-04-24 13:40] LABS: ALK PHOS 68 U/L (45-117)
[2023-04-24 13:41] LABS: ANION GAP 6 MMOL/L (8-16); POTASSIUM 7.1 mmol/L (3.5-5.1); SGPT/ALT 28 U/L (13-61)
[2023-04-24 14:59] LABS: POTASSIUM 4.4 mmol/L (3.5-5.1)
[2023-04-24 15:01] LABS: CALCIUM 8.7 mg/dL (8.5-10.1)
[2023-04-24 15:02] LABS: BLOOD UREA NITROGEN 10.3 mg/dL (7-18)
[2023-04-24 15:05] LABS: CREATININE 0.5 mg/dL (0.55-1.3)
[2023-04-24 16:33] LABS: URINE APPEARANCE CLEAR; URINE BILIRUBIN NEGATIVE (NEGATIVE); URINE COLOR YELLOW; URINE GLUCOSE (UA) NEGATIVE (NEGATIVE); URINE KETONE 15 mg/dl (NEGATIVE)
[2023-04-24 16:34] LABS: URINE LEUK ESTERASE NEGATIVE (NEGATIVE); URINE NITRITE NEGATIVE (NEGATIVE); URINE PROTEIN NEGATIVE (NEGATIVE); URINE UROBILINOGEN 0.2 mg/dL (0.2-1.0)
[2023-04-24] MEDS ORDERED: SODIUM CHLORIDE 250 ML IV STA (20:09)
[2023-04-24] MEDS ORDERED: ACETAMINOPHEN 1000 MG/100 ML BAG IVPB PRN (20:15)
[2023-04-24] MEDS ORDERED: ONDANSETRON 4 MG/2 ML VIAL IVPUSH PRN (20:17)
[2023-04-24] MEDS ORDERED: INSULIN SLIDING SCALE (NOVOLOG) 1 VIAL SQ SCH (22:00)
[2023-04-24] MEDS: INSULIN SLIDING SCALE (NOVOLOG) 1 VIAL SQ SCH (23:18)
[2023-04-25] MEDS: INSULIN SLIDING SCALE (NOVOLOG) 1 VIAL SQ SCH ×4 (06:10→21:42)
[2023-04-25 09:50] LABS: BASO % 1.2 % (0-2.0); EOS % 0.6 % (0-4.5); HEMATOCRIT 38.2 % (32.4-45.2); HEMOGLOBIN 12.3 GM/dL (10.7-15.3); LYMPH % 32.6 % (8-40); MCHC 32.2 g/dl (32.0-36.0); MEAN CELL VOLUME 90.1 fl (80-96); MEAN PLT VOLUME 9.6 fl (7.5-11.1); MONO % 9.4 % (3.8-10.2); NEUT % 56.2 % (42.8-82.8); PLATELET COUNT 148 10^3/uL (134-434); RBC 4.23 M/mm3 (3.60-5.2); RDW 14.1 % (11.6-15.6); WHITE BLOOD COUNT 4.4 K/mm3 (4.0-10.0)
[2023-04-25 09:52] LABS: INR 1.03 (0.83-1.09)
[2023-04-25 09:55] LABS: ACTIVATED PTT 27.1 SECONDS (25.2-36.5)
[2023-04-25 10:10] LABS: POTASSIUM 4.1 mmol/L (3.5-5.1)
[2023-04-25 10:23] LABS: CALCIUM 8.5 mg/dL (8.5-10.1)
[2023-04-25 10:24] LABS: BLOOD UREA NITROGEN 9.2 mg/dL (7-18); MAGNESIUM 1.9 mg/dL (1.8-2.4)
[2023-04-25 10:26] LABS: CREATININE 0.5 mg/dL (0.55-1.3); PHOSPHOROUS 3.5 mg/dL (2.5-4.9)
[2023-04-25 11:02] LABS: BILIRUBIN,DIRECT 0.1 mg/dL (0.0-0.2)
[2023-04-25 11:04] LABS: BILIRUBIN,TOTAL 0.5 mg/dL (0.2-1)
[2023-04-25 11:11] LABS: ALBUMIN 3.2 g/dl (3.4-5.0); TOT PROT 5.8 g/dl (6.4-8.2)
[2023-04-25] MEDS ORDERED: DEXTROSE 5%-WATER - 1,000 ML IV SCH (13:00)
[2023-04-25] MEDS ORDERED: ACETAMINOPHEN 325 MG TABLET (FP) PO PRN (20:11)
[2023-04-26] MEDS: INSULIN SLIDING SCALE (NOVOLOG) 1 VIAL SQ SCH ×5 (06:27→22:44)
[2023-04-26 08:17] LABS: INR 1.01 (0.83-1.09); PROTHROMBIN TIME (PATIENT) 11.7 SEC (9.7-13.0)
[2023-04-26 08:21] LABS: BASO % 1.1 % (0-2.0); EOS % 1.8 % (0-4.5); HEMATOCRIT 38.1 % (32.4-45.2); HEMOGLOBIN 12.5 GM/dL (10.7-15.3); LYMPH % 31.5 % (8-40); MCH 29.4 pg (25.7-33.7); MCHC 32.7 g/dl (32.0-36.0); MEAN CELL VOLUME 89.8 fl (80-96); MEAN PLT VOLUME 9.4 fl (7.5-11.1); MONO % 9.2 % (3.8-10.2); NEUT % 56.4 % (42.8-82.8); PLATELET COUNT 151 10^3/uL (134-434); RBC 4.25 M/mm3 (3.60-5.2); RDW 14.1 % (11.6-15.6); WHITE BLOOD COUNT 4.2 K/mm3 (4.0-10.0)
[2023-04-26 08:51] LABS: POTASSIUM 4.2 mmol/L (3.5-5.1)
[2023-04-26 08:53] LABS: CALCIUM 8.9 mg/dL (8.5-10.1)
[2023-04-26 08:54] LABS: ALBUMIN 3.4 g/dl (3.4-5.0); BLOOD UREA NITROGEN 4.1 mg/dL (7-18)
[2023-04-26 08:57] LABS: CREATININE 0.4 mg/dL (0.55-1.3)
[2023-04-26 08:58] LABS: BILIRUBIN,TOTAL 0.6 mg/dL (0.2-1); TOT PROT 6.1 g/dl (6.4-8.2)
[2023-04-26] MEDS ORDERED: CEFTRIAXONE 1 GM in DEXTROSE 5%-WATER - 50 ML IVPB SCH (10:30)
[2023-04-26 11:25] VITALS: BMI 17.2
[2023-04-27] MEDS: INSULIN SLIDING SCALE (NOVOLOG) 1 VIAL SQ SCH ×4 (06:44→23:02)
[2023-04-27 23:58] VITALS: BP 143/94; PULSE 75; RESP 15; TEMP 98.1
== END 2023-04-28 00:23 | DRG 392 ==
LOC: JER 11:22 → JERBED 20:04 → J8W 04-25 02:08
PROVIDERS: ADMIT Internal Medicine; ATTEND Family Medicine
DX: K52.9 Noninfective gastroenteritis and colitis, unspecified (principal); E87.1 Hypo-osmolality and hyponatremia; Z68.1 Body mass index [BMI] 19.9 or less, adult; E46 Unspecified protein-calorie malnutrition; I10 Essential (primary) hypertension; E78.5 Hyperlipidemia, unspecified; M79.7 Fibromyalgia; J44.9 Chronic obstructive pulmonary disease, unspecified
CPT/HCPCS: 0241U-QW; 36415; 71045-TC-FY; 74177-TC; 80048; 80053; 80076; 81003; 82962; 83605; 83690; 83735; 84100; 84484; 85025; 85610; 85730; 86140; 87086; 87186; 93005; 93010; 97116-GP; 97161-GP; 99285-25; Q9967

== ENCOUNTER 2023-08-13 14:06 | Inpatient (IN) | payer OTHER ==
[2023-08-13 15:10] VITALS: BMI 14.3
[2023-08-13] MEDS ORDERED: LACTATED RINGERS SOLUTION 1000 ML INFUS.BAG IV ONE (15:59)
[2023-08-13] MEDS ORDERED: FAMOTIDINE 20 MG/50 ML IVPB 20 MG/50 ML MG IVPB ONE ×2 (15:59→16:41)
[2023-08-13] MEDS ORDERED: ACETAMINOPHEN 1000 MG/100 ML BAG IVPB ONE (15:59)
[2023-08-13] MEDS ORDERED: ONDANSETRON 4 MG/2 ML VIAL IVPUSH ONE (15:59)
[2023-08-13] MEDS ORDERED: ACETAMINOPHEN INJECTION 100 ML IVPB ONE (16:41)
[2023-08-13] MEDS ORDERED: ONDANSETRON 4 MG/2 ML VIAL ONE (16:41)
[2023-08-13 17:08] LABS: BASO % 0.4 % (0-2.0); HEMATOCRIT 40.1 % (32.4-45.2); LYMPH % 14.5 % (8-40); MCH 29.6 pg (25.7-33.7); MCHC 32.5 g/dl (32.0-36.0); MEAN PLT VOLUME 10.6 fl (7.5-11.1); MONO % 3.7 % (3.8-10.2); NEUT % 81.4 % (42.8-82.8); PLATELET COUNT 284 10^3/uL (134-434); RBC 4.41 M/mm3 (3.60-5.2); RDW 16.1 % (11.6-15.6); WHITE BLOOD COUNT 13.7 K/mm3 (4.0-10.0)
[2023-08-13 17:16] LABS: INR 0.93 (0.83-1.09); PROTHROMBIN TIME (PATIENT) 10.8 SEC (9.7-13.0)
[2023-08-13 17:19] LABS: ACTIVATED PTT 27.4 SECONDS (25.2-36.5)
[2023-08-13 17:37] LABS: POTASSIUM 4.8 mmol/L (3.5-5.1)
[2023-08-13 17:40] LABS: ALBUMIN 3.5 g/dl (3.4-5.0); BLOOD UREA NITROGEN 8.7 mg/dL (7-18)
[2023-08-13 17:43] LABS: CREATININE 0.5 mg/dL (0.55-1.3)
[2023-08-13 17:44] LABS: TOT PROT 6.8 g/dl (6.4-8.2)
[2023-08-13 17:45] LABS: BILIRUBIN,TOTAL 0.8 mg/dL (0.2-1)
[2023-08-13 18:49] LABS: EPI CELLS >36 /uL (0-25.1); HYALINE CASTS 9 /uL (0-3.1); URINE APPEARANCE CLEAR; URINE BACTERIA 19 /uL (0-1359); URINE BILIRUBIN NEGATIVE (NEGATIVE); URINE COLOR YELLOW; URINE GLUCOSE (UA) NEGATIVE (NEGATIVE); URINE KETONE 4+ (NEGATIVE); URINE LEUK ESTERASE NEGATIVE (NEGATIVE); URINE NITRITE NEGATIVE (NEGATIVE); URINE PROTEIN 1+ (NEGATIVE); URINE RBC 11 /uL (0-23.9)
[2023-08-13] MEDS ORDERED: PANTOPRAZOLE SODIUM 40 MG VIAL IVPUSH ONE (19:21)
[2023-08-13] MEDS ORDERED: SUCRALFATE 1 GM TABLET (FP) PO ONE (19:21)
[2023-08-13 19:25] LABS: URINE WBC 65.4 /uL (0-25.8)
[2023-08-13] MEDS ORDERED: PIPERACILLIN/TAZOB 4.5 GM 4.5 GM in DEXTROSE 5%-WATER 100 ML IVPB ONE (20:02)
[2023-08-13] MEDS ORDERED: PANTOPRAZOLE SODIUM 40 MG VIAL ONE (20:08)
[2023-08-13] MEDS ORDERED: SUCRALFATE 1 GM TABLET (FP) ONE (20:08)
[2023-08-13] MEDS ORDERED: PIPERACILLIN/TAZOB 4.5 GM 4.5 GM/100 ML BAG IVPB ONE (22:01)
[2023-08-13] MEDS ORDERED: ACETAMINOPHEN 1000 MG/100 ML BAG IVPB PRN (23:00)
[2023-08-14] MEDS ORDERED: ACETAMINOPHEN 1000 MG/100 ML BAG IVPB PRN
[2023-08-14] MEDS: MIRTAZAPINE 15 MG TABLET (FP) PO SCH ×3 (01:47→21:53)
[2023-08-14] MEDS: PREGABALIN 100 MG CAPSULE PO SCH ×5 (01:48→21:53)
[2023-08-14] MEDS: traZODone HCL 50 MG TABLET (FP) PO SCH ×3 (01:48→21:53)
[2023-08-14] MEDS: PIPERACILLIN/TAZOB 3.375 GM 3.375 GM in DEXTROSE 5%-WATER - 50 ML IVPB SCH ×5 (03:15→17:40)
[2023-08-14] MEDS: DEXTROSE 5%-NORMAL SALINE 1,000 ML IV SCH (03:54)
[2023-08-14] MEDS: INSULIN SLIDING SCALE (NOVOLOG) 1 VIAL SQ SCH ×4 (07:23→21:53)
[2023-08-14] MEDS: metoPROLOL SUCCINATE 25 MG TAB.SR.24H (FP) PO SCH (09:21)
[2023-08-14] MEDS: FOLIC ACID 1 MG TABLET (FP) PO SCH (09:22)
[2023-08-14] MEDS: METHIMAZOLE 5 MG TABLET PO SCH (09:22)
[2023-08-14] MEDS: VITAMIN B COMPLEX W/C COMBO TABLET (FP) PO SCH (09:22)
[2023-08-14] MEDS: ASPIRIN COATED 81 MG TABLET.EC PO SCH (09:22)
[2023-08-14] MEDS ORDERED: PANTOPRAZOLE 40 MG TABLET PO SCH (10:00)
[2023-08-14] MEDS ORDERED: FLU VACCINE (FLULAVAL) PF 60 MCG/0.5 ML SYRINGE 2023-2024 IM ONE (10:00)
[2023-08-14] MEDS ORDERED: LIDOCAINE 5% TOPICAL PATCH TP SCH (10:00)
[2023-08-14] MEDS ORDERED: ROSUVASTATIN CA 10 MG TABLET PO SCH (10:00)
[2023-08-14] MEDS ORDERED: PYRIDOXINE HCL (B-6) 100 MG TABLET PO SCH (10:00)
[2023-08-14 10:15] LABS: BASO % 1.3 % (0-2.0); EOS % 0.1 % (0-4.5); HEMATOCRIT 31.2 % (32.4-45.2); HEMOGLOBIN 9.9 GM/dL (10.7-15.3); LYMPH % 30.9 % (8-40); MCH 29.6 pg (25.7-33.7); MCHC 31.8 g/dl (32.0-36.0); MEAN CELL VOLUME 92.9 fl (80-96); MEAN PLT VOLUME 10.8 fl (7.5-11.1); MONO % 14.8 % (3.8-10.2); NEUT % 52.9 % (42.8-82.8); PLATELET COUNT 235 10^3/uL (134-434); RBC 3.36 M/mm3 (3.60-5.2); RDW 15.8 % (11.6-15.6); WHITE BLOOD COUNT 8.3 K/mm3 (4.0-10.0)
[2023-08-14] MEDS ORDERED: LIDOCAINE 4% PATCH TP SCH (10:22)
[2023-08-14] MEDS ORDERED: SODIUM CHLORIDE 250 ML IV ONE (10:45)
[2023-08-14] MEDS ORDERED: SODIUM CHLORIDE 250 ML IV SCH (11:15)
[2023-08-14 11:18] LABS: POTASSIUM 3.8 mmol/L (3.5-5.1)
[2023-08-14] MEDS: LIDOCAINE 4% PATCH TP SCH (11:24)
[2023-08-14 11:30] LABS: PHOSPHOROUS 2.8 mg/dL (2.5-4.9)
[2023-08-14 11:31] LABS: BLOOD UREA NITROGEN 6.6 mg/dL (7-18)
[2023-08-14 11:33] LABS: CALCIUM 8.1 mg/dL (8.5-10.1)
[2023-08-14 11:34] LABS: MAGNESIUM 1.8 mg/dL (1.8-2.4)
[2023-08-14 11:35] LABS: CREATININE 0.5 mg/dL (0.55-1.3)
[2023-08-14] MEDS ORDERED: INSULIN (NOVOLOG) ASPART 100 UNITS/ML 10ML VIAL ONE (11:59)
[2023-08-14 13:22] LABS: ERYTHROCYTE SEDIMENTATION RATE 13 mm/hr (0-30)
[2023-08-14] MEDS: PYRIDOXINE HCL (B-6) 50 MG TABLET (FP) PO SCH (13:31)
[2023-08-14] MEDS: ROFLUMILAST 500 MCG TABLET PO SCH (13:31)
[2023-08-14] MEDS ORDERED: BANATROL PLUS POWDER PACKET PO SCH (14:00)
[2023-08-14] MEDS: oxyCODONE HCL 5 MG TABLET PO PRN (15:17)
[2023-08-14] MEDS: LIDOCAINE PATCH REMOVAL MC SCH (21:53)
[2023-08-15] MEDS: PIPERACILLIN/TAZOB 3.375 GM 3.375 GM in DEXTROSE 5%-WATER - 50 ML IVPB SCH ×3 (01:46→18:07)
[2023-08-15] MEDS: DEXTROSE 5%-NORMAL SALINE 1,000 ML IV SCH (05:00)
[2023-08-15] MEDS: PREGABALIN 100 MG CAPSULE PO SCH ×3 (05:35→21:40)
[2023-08-15] MEDS: INSULIN SLIDING SCALE (NOVOLOG) 1 VIAL SQ SCH ×2 (06:51→12:13)
[2023-08-15] MEDS: PYRIDOXINE HCL (B-6) 50 MG TABLET (FP) PO SCH (11:14)
[2023-08-15] MEDS: ASPIRIN COATED 81 MG TABLET.EC PO SCH (11:14)
[2023-08-15] MEDS: VITAMIN B COMPLEX W/C COMBO TABLET (FP) PO SCH (11:14)
[2023-08-15] MEDS: FOLIC ACID 1 MG TABLET (FP) PO SCH (11:14)
[2023-08-15] MEDS: FAMOTIDINE 20 MG TABLET PO SCH (11:14)
[2023-08-15] MEDS: METHIMAZOLE 5 MG TABLET PO SCH (11:14)
[2023-08-15] MEDS: LIDOCAINE 4% PATCH TP SCH (11:17)
[2023-08-15] MEDS: ROFLUMILAST 500 MCG TABLET PO SCH (11:41)
[2023-08-15] MEDS: ACETAMINOPHEN 325 MG TABLET (FP) PO PRN (11:41)
[2023-08-15] MEDS: metoPROLOL SUCCINATE 25 MG TAB.SR.24H (FP) PO SCH (12:12)
[2023-08-15] MEDS: oxyCODONE HCL 5 MG TABLET PO PRN ×2 (14:00→21:57)
[2023-08-15] MEDS: MIRTAZAPINE 15 MG TABLET (FP) PO SCH (21:40)
[2023-08-15] MEDS: ROSUVASTATIN CA 20 MG TABLET PO SCH (21:41)
[2023-08-15] MEDS: traZODone HCL 50 MG TABLET (FP) PO SCH (21:41)
[2023-08-15] MEDS: LIDOCAINE PATCH REMOVAL MC SCH (21:52)
[2023-08-16] MEDS: PIPERACILLIN/TAZOB 3.375 GM 3.375 GM in DEXTROSE 5%-WATER - 50 ML IVPB SCH ×3 (02:28→17:41)
[2023-08-16] MEDS: DEXTROSE 5%-NORMAL SALINE 1,000 ML IV SCH ×2 (03:44→14:30)
[2023-08-16] MEDS: PREGABALIN 100 MG CAPSULE PO SCH ×3 (05:44→21:14)
[2023-08-16] MEDS: metoPROLOL SUCCINATE 25 MG TAB.SR.24H (FP) PO SCH (09:34)
[2023-08-16] MEDS: FOLIC ACID 1 MG TABLET (FP) PO SCH (09:34)
[2023-08-16] MEDS: ROFLUMILAST 500 MCG TABLET PO SCH (09:35)
[2023-08-16] MEDS: PYRIDOXINE HCL (B-6) 50 MG TABLET (FP) PO SCH (09:35)
[2023-08-16] MEDS: FAMOTIDINE 20 MG TABLET PO SCH (09:35)
[2023-08-16] MEDS: VITAMIN B COMPLEX W/C COMBO TABLET (FP) PO SCH (09:35)
[2023-08-16] MEDS: METHIMAZOLE 5 MG TABLET PO SCH (09:35)
[2023-08-16] MEDS: ASPIRIN COATED 81 MG TABLET.EC PO SCH (09:35)
[2023-08-16] MEDS: oxyCODONE HCL 5 MG TABLET PO PRN ×3 (09:36→21:13)
[2023-08-16] MEDS: LIDOCAINE 4% PATCH TP SCH (09:36)
[2023-08-16] MEDS: ONDANSETRON 4 MG/2 ML VIAL IVPUSH PRN (15:55)
[2023-08-16] MEDS: traZODone HCL 50 MG TABLET (FP) PO SCH (21:14)
[2023-08-16] MEDS: ROSUVASTATIN CA 20 MG TABLET PO SCH (21:14)
[2023-08-16] MEDS: MIRTAZAPINE 15 MG TABLET (FP) PO SCH (21:15)
[2023-08-16] MEDS: LIDOCAINE PATCH REMOVAL MC SCH (21:20)
[2023-08-17] MEDS: oxyCODONE HCL 5 MG TABLET PO PRN ×3 (02:14→17:08)
[2023-08-17] MEDS: PIPERACILLIN/TAZOB 3.375 GM 3.375 GM in DEXTROSE 5%-WATER - 50 ML IVPB SCH ×3 (03:40→17:11)
[2023-08-17] MEDS: PREGABALIN 100 MG CAPSULE PO SCH ×3 (05:48→21:44)
[2023-08-17] MEDS: PYRIDOXINE HCL (B-6) 50 MG TABLET (FP) PO SCH (09:34)
[2023-08-17] MEDS: ASPIRIN COATED 81 MG TABLET.EC PO SCH (09:34)
[2023-08-17] MEDS: FOLIC ACID 1 MG TABLET (FP) PO SCH (09:35)
[2023-08-17] MEDS: FAMOTIDINE 20 MG TABLET PO SCH (09:35)
[2023-08-17] MEDS: METHIMAZOLE 5 MG TABLET PO SCH (09:35)
[2023-08-17] MEDS: metoPROLOL SUCCINATE 25 MG TAB.SR.24H (FP) PO SCH (09:47)
[2023-08-17] MEDS: LIDOCAINE 4% PATCH TP SCH (09:51)
[2023-08-17] MEDS: METHYL SALICYLATE/MENTHOL OINT 30 GM TUBE TP SCH ×2 (10:16→21:46)
[2023-08-17] MEDS: ROFLUMILAST 500 MCG TABLET PO SCH (10:16)
[2023-08-17] MEDS: VITAMIN B COMPLEX W/C COMBO TABLET (FP) PO SCH (11:25)
[2023-08-17] MEDS: ONDANSETRON 4 MG/2 ML VIAL IVPUSH PRN (11:25)
[2023-08-17] MEDS: DEXTROSE 5%-NORMAL SALINE 1,000 ML IV SCH (13:39)
[2023-08-17] MEDS: ROSUVASTATIN CA 20 MG TABLET PO SCH (21:44)
[2023-08-17] MEDS: MIRTAZAPINE 15 MG TABLET (FP) PO SCH (21:45)
[2023-08-17] MEDS: traZODone HCL 50 MG TABLET (FP) PO SCH (21:45)
[2023-08-18] MEDS: PIPERACILLIN/TAZOB 3.375 GM 3.375 GM in DEXTROSE 5%-WATER - 50 ML IVPB SCH ×3 (01:17→17:19)
[2023-08-18 04:46] VITALS: RESP 18
[2023-08-18] MEDS: oxyCODONE HCL 5 MG TABLET PO PRN (06:09)
[2023-08-18] MEDS: PREGABALIN 100 MG CAPSULE PO SCH ×2 (06:44→14:26)
[2023-08-18] MEDS: LIDOCAINE PATCH REMOVAL MC SCH (06:45)
[2023-08-18] MEDS: LIDOCAINE 4% PATCH TP SCH (10:21)
[2023-08-18] MEDS: ASPIRIN COATED 81 MG TABLET.EC PO SCH (10:22)
[2023-08-18] MEDS: FAMOTIDINE 20 MG TABLET PO SCH (10:22)
[2023-08-18] MEDS: METHIMAZOLE 5 MG TABLET PO SCH (10:22)
[2023-08-18] MEDS: metoPROLOL SUCCINATE 25 MG TAB.SR.24H (FP) PO SCH (10:22)
[2023-08-18] MEDS: VITAMIN B COMPLEX W/C COMBO TABLET (FP) PO SCH (10:23)
[2023-08-18] MEDS: ROFLUMILAST 500 MCG TABLET PO SCH (10:23)
[2023-08-18] MEDS: FOLIC ACID 1 MG TABLET (FP) PO SCH (10:23)
[2023-08-18] MEDS: PYRIDOXINE HCL (B-6) 50 MG TABLET (FP) PO SCH (10:25)
[2023-08-18] MEDS: ACETAMINOPHEN 325 MG TABLET (FP) PO PRN ×2 (10:25→17:19)
[2023-08-18] MEDS: METHYL SALICYLATE/MENTHOL OINT 30 GM TUBE TP SCH (11:52)
[2023-08-18 15:24] VITALS: BP 104/56; PULSE 88; TEMP 98
[2023-08-18] MEDS: DEXTROSE 5%-NORMAL SALINE 1,000 ML IV SCH ×2 (17:16→17:17)
== END 2023-08-18 19:56 | disposition home or self-care (01) | DRG 391 ==
LOC: JER 14:06 → JERBED 17:45 → J8W 23:30 → OBSVTOIN 08-15 09:09
PROVIDERS: ADMIT Internal Medicine; ATTEND Family Medicine
DX: K52.9 Noninfective gastroenteritis and colitis, unspecified (principal); E43 Unspecified severe protein-calorie malnutrition; Z68.1 Body mass index [BMI] 19.9 or less, adult; I10 Essential (primary) hypertension; J44.9 Chronic obstructive pulmonary disease, unspecified; E78.5 Hyperlipidemia, unspecified; G89.29 Other chronic pain; K59.00 Constipation, unspecified; M54.9 Dorsalgia, unspecified; D64.9 Anemia, unspecified
CPT/HCPCS: 0241U-QW; 36415; 71045-TC-FY; 72050-TC-FY; 74177-TC; 80048; 80053; 81003; 82962; 83690; 83735; 84100; 84439; 84443; 84484; 85025; 85610; 85651; 85730; 86140; 87040; 87045; 87046; 87086; 87186; 87205; 87209; 87324; 87449; 93005; 93010; 97116-GP; 97161-GP; 99285-25; G0378

== ENCOUNTER 2024-01-14 14:51 | Inpatient (IN) | payer OTHER ==
[2024-01-14] MEDS ORDERED: diazePAM 5 MG TABLET ONE (17:59)
[2024-01-14] MEDS: diazePAM 5 MG TABLET PO ONE (18:00)
[2024-01-14 18:43] LABS: EOS % 0.1 % (0-4.5); HEMATOCRIT 40.2 % (32.4-45.2); HEMOGLOBIN 13.2 GM/dL (10.7-15.3); LYMPH % 23.2 % (8-40); MCH 29.6 pg (25.7-33.7); MCHC 32.9 g/dl (32.0-36.0); MEAN PLT VOLUME 10.4 fl (7.5-11.1); MONO % 11.2 % (3.8-10.2); NEUT % 64.5 % (42.8-82.8); PLATELET COUNT 305 10^3/uL (134-434); RBC 4.47 M/mm3 (3.60-5.2); RDW 16.3 % (11.6-15.6); WHITE BLOOD COUNT 10.7 K/mm3 (4.0-10.0)
[2024-01-14 19:09] LABS: POTASSIUM 4.9 mmol/L (3.5-5.1)
[2024-01-14 19:10] LABS: ALBUMIN 3.8 g/dl (3.4-5.0)
[2024-01-14 19:11] LABS: BLOOD UREA NITROGEN 10.8 mg/dL (7-18); CALCIUM 9.1 mg/dL (8.5-10.1)
[2024-01-14 19:15] LABS: CREATININE 0.9 mg/dL (0.55-1.3)
[2024-01-14 19:16] LABS: BILIRUBIN,TOTAL 0.5 mg/dL (0.2-1); TOT PROT 7.5 g/dl (6.4-8.2)
[2024-01-14] MEDS ORDERED: PREGABALIN 100 MG CAPSULE ONE (19:20)
[2024-01-14] MEDS: PREGABALIN 100 MG CAPSULE PO ONE (19:24)
[2024-01-14] MEDS ORDERED: ACETAMINOPHEN INJECTION 100 ML IVPB ONE (22:12)
[2024-01-14] MEDS: ACETAMINOPHEN 1000 MG/100 ML BAG IVPB PRN (22:18)
[2024-01-15 04:05] VITALS: BMI 14.6
[2024-01-15 09:25] LABS: INR 1.01 (0.83-1.09); PROTHROMBIN TIME (PATIENT) 11.7 SEC (9.7-13.0)
[2024-01-15 09:28] LABS: ACTIVATED PTT 28.6 SECONDS (25.2-36.5)
[2024-01-15 09:35] LABS: BASO % 1.5 % (0-2.0); HEMATOCRIT 38.1 % (32.4-45.2); HEMOGLOBIN 12.5 GM/dL (10.7-15.3); LYMPH % 29.7 % (8-40); MCH 29.2 pg (25.7-33.7); MCHC 32.9 g/dl (32.0-36.0); MEAN CELL VOLUME 88.8 fl (80-96); MEAN PLT VOLUME 10.6 fl (7.5-11.1); MONO % 11.5 % (3.8-10.2); NEUT % 56.3 % (42.8-82.8); PLATELET COUNT 291 10^3/uL (134-434); RBC 4.29 M/mm3 (3.60-5.2); RDW 15.9 % (11.6-15.6); WHITE BLOOD COUNT 6.9 K/mm3 (4.0-10.0)
[2024-01-15 09:44] LABS: POTASSIUM 4.6 mmol/L (3.5-5.1)
[2024-01-15 09:52] LABS: CALCIUM 8.9 mg/dL (8.5-10.1)
[2024-01-15 09:57] LABS: BLOOD UREA NITROGEN 8.2 mg/dL (7-18); CREATININE 0.7 mg/dL (0.55-1.3)
[2024-01-15] MEDS: ENOXAPARIN NA (PORCINE) 30 MG/0.3 ML DISP.SYRIN SQ SCH (10:02)
[2024-01-15] MEDS: BUDESONIDE/FORMETEROL FUMARATE 160/4.5 mcg INHALER IH SCH (11:15)
[2024-01-15] MEDS: ACETAMINOPHEN 325 MG TABLET (FP) PO ONE (14:02)
[2024-01-15] MEDS: traZODone HCL 50 MG TABLET (FP) PO SCH (21:10)
[2024-01-15] MEDS: ROSUVASTATIN CA 20 MG TABLET PO SCH (21:10)
[2024-01-15] MEDS ORDERED: METOPROLOL TARTRATE 25 MG TABLET (FP) PO SCH (22:00)
[2024-01-16] MEDS: oxyCODONE HCL 5 MG TABLET PO PRN (03:24)
[2024-01-16] MEDS: ACETAMINOPHEN 500 MG TABLET (FP) PO PRN (05:33)
[2024-01-16] MEDS ORDERED: guaiFENesin 200 MG/10 ML 10 ML UNIT-DOSE CUPS PO PRN (09:08)
[2024-01-16] MEDS: LORATADINE 10 MG TABLET PO SCH (10:16)
[2024-01-16] MEDS: ESCITALOPRAM OXALATE 10 MG TABLET PO SCH (10:16)
[2024-01-16] MEDS: DOCUSATE SODIUM 100 MG CAPSULE (FP) PO PRN (10:16)
[2024-01-16 10:43] LABS: EPI CELLS 6 /uL (0-25.1); HYALINE CASTS 1 /uL (0-3.1); PH,URINE 5.5 (5.0-8.0); URINE APPEARANCE CLOUDY; URINE BACTERIA 204 /uL (0-1359); URINE BILIRUBIN NEGATIVE (NEGATIVE); URINE COLOR DK YELLOW; URINE GLUCOSE (UA) NEGATIVE (NEGATIVE); URINE KETONE 3+ (NEGATIVE); URINE LEUK ESTERASE 2+ (NEGATIVE); URINE NITRITE NEGATIVE (NEGATIVE); URINE PROTEIN 1+ (NEGATIVE); URINE RBC 56 /uL (0-23.9); URINE WBC 2268 /uL (0-25.8)
[2024-01-16] MEDS: BENZOCAINE/MENTH/CETYLPYRD CL 1 EACH LOZENGE MM PRN (10:43)
[2024-01-16] MEDS: FLUTICASONE PROP 0.05% 16 GM NASAL SPRAY NS SCH (11:31)
[2024-01-16] MEDS: PREGABALIN 100 MG CAPSULE PO SCH (14:17)
[2024-01-17] MEDS: oxyCODONE HCL 5 MG TABLET PO PRN (11:19)
[2024-01-18 10:29] VITALS: BP 116/62; PULSE 92; RESP 20; TEMP 98.2
[2024-01-18] MEDS: POLYETHYLENE GLYCOL (HEALTHYLAX) 3350 17 GM PACKET PO SCH (11:58)
== END 2024-01-18 13:23 | DRG 551 ==
LOC: JER 14:51 → JERBED 16:57 → J8W 23:32 → OBSVTOIN 01-15 13:10
PROVIDERS: ADMIT Internal Medicine; ATTEND Family Medicine
DX: M54.89 Other dorsalgia (principal); E43 Unspecified severe protein-calorie malnutrition; Z68.1 Body mass index [BMI] 19.9 or less, adult; J44.9 Chronic obstructive pulmonary disease, unspecified; E78.00 Pure hypercholesterolemia, unspecified; N28.1 Cyst of kidney, acquired; I10 Essential (primary) hypertension; G89.29 Other chronic pain; K58.9 Irritable bowel syndrome, unspecified; K59.00 Constipation, unspecified; R91.8 Other nonspecific abnormal finding of lung field; K21.9 Gastro-esophageal reflux disease without esophagitis; F32.A Depression, unspecified; K44.9 Diaphragmatic hernia without obstruction or gangrene; M79.7 Fibromyalgia; R62.7 Adult failure to thrive; R26.81 Unsteadiness on feet
CPT/HCPCS: 36415; 80048; 80053; 81003; 84439; 84443; 85025; 85610; 85730; 87086; 87186; 87635; 93005; 93010; 97116-GP; 97161-GP; 99285-25; G0378; J0131

== ENCOUNTER 2024-01-25 16:18 | Inpatient (IN) | payer OTHER ==
[2024-01-25 16:56] VITALS: BMI 15.0
[2024-01-25] MEDS ORDERED: HYDROmorphone HCl 2 MG/ML VIAL ONE (18:27)
[2024-01-25] MEDS: HYDROmorphone HCl 2 MG/ML VIAL IVPUSH ONE (18:41)
[2024-01-25 18:45] LABS: HEMATOCRIT 35.1 % (32.4-45.2); HEMOGLOBIN 11.5 GM/dL (10.7-15.3); MCH 28.9 pg (25.7-33.7); MCHC 32.7 g/dl (32.0-36.0); MEAN CELL VOLUME 88.2 fl (80-96); MEAN PLT VOLUME 10.2 fl (7.5-11.1); PLATELET COUNT 377 10^3/uL (134-434); RBC 3.98 M/mm3 (3.60-5.2); RDW 15.9 % (11.6-15.6); WHITE BLOOD COUNT 12.2 K/mm3 (4.0-10.0)
[2024-01-25 19:14] LABS: POTASSIUM 4.7 mmol/L (3.5-5.1)
[2024-01-25 19:16] LABS: BLOOD UREA NITROGEN 12.9 mg/dL (7-18); CALCIUM 8.9 mg/dL (8.5-10.1)
[2024-01-25 19:19] LABS: CREATININE 0.9 mg/dL (0.55-1.3)
[2024-01-25 19:21] LABS: BILIRUBIN,TOTAL 0.6 mg/dL (0.2-1); TOT PROT 6.2 g/dl (6.4-8.2)
[2024-01-25 19:25] LABS: ANISOCYTOSIS 1+; TARGET CELLS 1+
[2024-01-25 19:27] LABS: PLATELET ESTIMATE ADEQUATE
[2024-01-25 19:35] LABS: ALBUMIN 2.9 g/dl (3.4-5.0)
[2024-01-25] MEDS: KETOROLAC TROMETHAMINE 15 MG/ML VIAL IVPUSH PRN (23:41)
[2024-01-26] MEDS ORDERED: guaiFENesin 200 MG/10 ML 10 ML UNIT-DOSE CUPS PO PRN (07:30)
[2024-01-26] MEDS ORDERED: ALBUTEROL SO4 HFA INHALER IH PRN (07:45)
[2024-01-26] MEDS ORDERED: SENNOSIDES 8.6MG TABLET (FP) PO PRN (07:45)
[2024-01-26 08:58] LABS: HEMATOCRIT 33.9 % (32.4-45.2); HEMOGLOBIN 11.3 GM/dL (10.7-15.3); MCH 29.6 pg (25.7-33.7); MCHC 33.4 g/dl (32.0-36.0); MEAN CELL VOLUME 88.7 fl (80-96); MEAN PLT VOLUME 10.5 fl (7.5-11.1); PLATELET COUNT 353 10^3/uL (134-434); RBC 3.82 M/mm3 (3.60-5.2); RDW 16.2 % (11.6-15.6); WHITE BLOOD COUNT 8.3 K/mm3 (4.0-10.0)
[2024-01-26 09:25] LABS: POTASSIUM 4.4 mmol/L (3.5-5.1)
[2024-01-26 09:35] LABS: BLOOD UREA NITROGEN 17.4 mg/dL (7-18); CALCIUM 8.3 mg/dL (8.5-10.1)
[2024-01-26 09:39] LABS: CREATININE 0.7 mg/dL (0.55-1.3)
[2024-01-26 10:12] LABS: ANISOCYTOSIS 0; HELMET CELLS 0; HOWELL-JOLLY BODIES 0; MACROCYTOSIS 0; OVALOCYTE 0; ROULEAU 0; SICKELED CELLS 0; TARGET CELLS 0; TEAR DROP CELLS 0; TOXIC GRANULATION 0
[2024-01-26] MEDS: POLYETHYLENE GLYCOL (HEALTHYLAX) 3350 17 GM PACKET PO SCH (10:21)
[2024-01-26] MEDS: PANTOPRAZOLE 40 MG TABLET PO SCH (10:21)
[2024-01-26] MEDS: MAGNESIUM HYDROX 2400MG/30ML ORAL SUSPENSION 30 ML CUP PO SCH (10:21)
[2024-01-26] MEDS: METHIMAZOLE 5 MG TABLET PO SCH (10:21)
[2024-01-26] MEDS: ASPIRIN COATED 81 MG TABLET.EC PO SCH (10:22)
[2024-01-26] MEDS: PREGABALIN 100 MG CAPSULE PO SCH (10:22)
[2024-01-26] MEDS: PYRIDOXINE HCL (B-6) 50 MG TABLET (FP) PO SCH (10:22)
[2024-01-26] MEDS: FOLIC ACID 1 MG TABLET (FP) PO SCH (10:22)
[2024-01-26] MEDS: ESCITALOPRAM OXALATE 10 MG TABLET PO SCH (10:22)
[2024-01-26] MEDS: METOPROLOL TARTRATE 25 MG TABLET (FP) PO SCH (10:28)
[2024-01-26] MEDS: BUDESONIDE/FORMETEROL FUMARATE 160/4.5 mcg INHALER IH SCH (10:33)
[2024-01-26] MEDS: FLUTICASONE PROP 0.05% 16 GM NASAL SPRAY NS SCH (10:33)
[2024-01-26] MEDS: ROFLUMILAST 500 MCG TABLET PO SCH (10:33)
[2024-01-26] MEDS: VITAMIN B COMPLEX W/C COMBO TABLET (FP) PO SCH (10:36)
[2024-01-26] MEDS: ACETAMINOPHEN 1000 MG/100 ML BAG IVPB PRN (12:09)
[2024-01-26] MEDS ORDERED: VALPROATE SODIUM 500 MG/5 ML VIAL IVPB ONE (15:30)
[2024-01-26] MEDS: LIDOCAINE 4% PATCH TP SCH (15:47)
[2024-01-26] MEDS: fentaNYL 12mcg/hr PATCH.TD72 TD SCH (15:48)
[2024-01-26] MEDS: PRAMIPEXOLE DIHYDROCHLORIDE 0.125 MG TABLET PO SCH (17:44)
[2024-01-26] MEDS: VALPROATE SODIUM INJECTION 500 MG in SODIUM CHLORIDE 100 ML IVPB ONE (17:44)
[2024-01-26] MEDS ORDERED: ACETAMINOPHEN 325 MG TABLET (FP) PO PRN (20:29)
[2024-01-26] MEDS ORDERED: DIVALPROEX NA *ER* EXTEND REL 250 MG TABLET.SA PO SCH (22:00)
[2024-01-26] MEDS: traZODone HCL 50 MG TABLET (FP) PO SCH (22:04)
[2024-01-26] MEDS: ROSUVASTATIN CA 20 MG TABLET PO SCH (22:06)
[2024-01-26] MEDS: DIVALPROEX SODIUM 250 MG TABLET E.C. PO SCH (22:06)
[2024-01-26] MEDS: LIDOCAINE PATCH REMOVAL MC SCH (22:06)
[2024-01-27] MEDS ORDERED: LORATADINE 10 MG TABLET PO SCH (10:00)
[2024-01-27] MEDS: ESCITALOPRAM OXALATE 10 MG TABLET PO SCH (10:58)
[2024-01-27] MEDS: oxyCODONE HCL 5 MG TABLET PO PRN (11:50)
[2024-01-27] MEDS: IRON SUCROSE INJECTION 200 MG in SODIUM CHLORIDE 100 ML IVPB ONE (21:53)
[2024-01-28 00:46] LABS: EPI CELLS 25 /uL (0-25.1); HYALINE CASTS 0 /uL (0-3.1); URINE APPEARANCE CLEAR; URINE BACTERIA 356 /uL (0-1359); URINE BILIRUBIN NEGATIVE (NEGATIVE); URINE COLOR YELLOW; URINE GLUCOSE (UA) NEGATIVE (NEGATIVE); URINE KETONE NEGATIVE (NEGATIVE); URINE LEUK ESTERASE 2+ (NEGATIVE); URINE NITRITE NEGATIVE (NEGATIVE); URINE PROTEIN 1+ (NEGATIVE); URINE UROBILINOGEN 0.2 mg/dL (0.2-1.0); URINE WBC 59 /uL (0-25.8)
[2024-01-28 00:54] LABS: URINE RBC 35.6 /uL (0-23.9)
[2024-01-28 10:09] LABS: BASO % 1.2 % (0-2.0); EOS % 1.6 % (0-4.5); HEMATOCRIT 33.2 % (32.4-45.2); HEMOGLOBIN 11.1 GM/dL (10.7-15.3); LYMPH % 17.7 % (8-40); MCH 29.6 pg (25.7-33.7); MCHC 33.3 g/dl (32.0-36.0); MEAN CELL VOLUME 88.8 fl (80-96); MEAN PLT VOLUME 10.6 fl (7.5-11.1); MONO % 11.4 % (3.8-10.2); NEUT % 68.1 % (42.8-82.8); PLATELET COUNT 338 10^3/uL (134-434); RBC 3.74 M/mm3 (3.60-5.2); RDW 15.9 % (11.6-15.6); WHITE BLOOD COUNT 6.9 K/mm3 (4.0-10.0)
[2024-01-28 10:32] LABS: POTASSIUM 4.6 mmol/L (3.5-5.1)
[2024-01-28 10:49] LABS: CREATININE 0.5 mg/dL (0.55-1.3)
[2024-01-28 10:50] LABS: TOT PROT 5.9 g/dl (6.4-8.2)
[2024-01-28 10:52] LABS: BILIRUBIN,TOTAL 0.3 mg/dL (0.2-1)
[2024-01-28 10:53] LABS: ALBUMIN 2.6 g/dl (3.4-5.0)
[2024-01-28 10:54] LABS: CALCIUM 8.6 mg/dL (8.5-10.1)
[2024-01-28 10:55] LABS: BLOOD UREA NITROGEN 12.4 mg/dL (7-18)
[2024-01-28 15:08] VITALS: RESP 18
[2024-01-28] MEDS: DIVALPROEX SODIUM 500 MG TABLET E.C. PO SCH (22:15)
[2024-01-28] MEDS: PRAMIPEXOLE DIHYDROCHLORIDE 0.25 MG TABLET PO SCH (22:16)
[2024-01-29] MEDS ORDERED: BENZONATATE 200 MG CAPSULE PO PRN (02:01)
[2024-01-29] MEDS: METHIMAZOLE 5 MG TABLET PO SCH (09:42)
[2024-01-29] MEDS ORDERED: BENZOCAINE/MENTH/CETYLPYRD CL 1 EACH LOZENGE MM PRN (09:50)
[2024-01-29] MEDS ORDERED: SODIUM CHLORIDE NASAL SPRAY 44 ML BOTTLE NS PRN (10:05)
[2024-01-29] MEDS: guaiFENesin 600 MG TABLET.ER (FP) PO SCH (10:50)
[2024-01-29] MEDS: ALBUTEROL SO4 2.5/IPRATROPIUM 0.5 INH SOL 3 ML VIAL.NEB. NEB SCH (11:40)
[2024-01-29] MEDS: FENTANYL PATCH WASTE TD PRN (13:50)
[2024-01-29 21:25] VITALS: PULSE 87
[2024-01-30 07:02] VITALS: BP 118/69; TEMP 99
[2024-01-30] MEDS ORDERED: PATIENT'S OWN MEDICATION (NON-FORMULARY) (Alendronate Sodium [Fosamax] 70 MG Tablet) PO SCH (07:30)
[2024-01-30] MEDS ORDERED: ERGOCALCIFEROL (VIT D2) 50,000 UNIT (1.25 MG) CAPSULE PO SCH (10:00)
== END 2024-01-30 09:20 | DRG 551 ==
LOC: JER 16:18 → OBSVTOIN 20:27 → JERBED 20:27 → J8W 21:42
PROVIDERS: ADMIT Student in an Organized Health Care Education/Training Program; ATTEND Family Medicine
DX: M54.9 Dorsalgia, unspecified (principal); E43 Unspecified severe protein-calorie malnutrition; Z68.1 Body mass index [BMI] 19.9 or less, adult; J44.9 Chronic obstructive pulmonary disease, unspecified; K58.9 Irritable bowel syndrome, unspecified; E78.00 Pure hypercholesterolemia, unspecified; N28.1 Cyst of kidney, acquired; M79.7 Fibromyalgia; I10 Essential (primary) hypertension; K59.00 Constipation, unspecified; K44.9 Diaphragmatic hernia without obstruction or gangrene; G43.909 Migraine, unspecified, not intractable, without status migrainosus; G25.81 Restless legs syndrome; F32.A Depression, unspecified; G89.29 Other chronic pain; K57.90 Diverticulosis of intestine, part unspecified, without perforation or abscess without bleeding; E04.2 Nontoxic multinodular goiter; R62.7 Adult failure to thrive
CPT/HCPCS: 36415; 71045-TC-FY; 80048; 80053; 81003; 83540; 83550; 84436; 84443; 85025; 87086; 94640; 97116-GP; 97161-GP; 99285-25; J0131; J1756

== ENCOUNTER 2024-01-31 05:44 | Inpatient (IN) | payer OTHER ==
[2024-01-31] MEDS ORDERED: ALBUTEROL SO4 2.5/IPRATROPIUM 0.5 INH SOL 3 ML VIAL.NEB. NEB ONE ×2 (05:57→16:10)
[2024-01-31 06:32] LABS: VENOUS BASE EXCESS -1.9 mmol/L (-2-2); VENOUS O2 SATURATION 63.3 % (70-80); VENOUS PCO2 32.5 mmHg (38-52); VENOUS PH 7.435 (7.310-7.410)
[2024-01-31 06:43] LABS: CALCIUM 8.8 mg/dL (8.5-10.1)
[2024-01-31 06:44] LABS: MAGNESIUM 1.8 mg/dL (1.8-2.4)
[2024-01-31] MEDS ORDERED: ACETAMINOPHEN INJECTION 100 ML IVPB ONE (06:44)
[2024-01-31 06:47] LABS: CREATININE 0.6 mg/dL (0.55-1.3)
[2024-01-31 06:49] LABS: BILIRUBIN,TOTAL 0.5 mg/dL (0.2-1); TOT PROT 7.3 g/dl (6.4-8.2)
[2024-01-31] MEDS: ACETAMINOPHEN 1000 MG/100 ML BAG IVPB ONE (06:51)
[2024-01-31] MEDS: ALBUTEROL SO4 2.5/IPRATROPIUM 0.5 INH SOL 3 ML VIAL.NEB. NEB ONE (06:51)
[2024-01-31 06:52] LABS: N-TERMINAL BNP 535.4 pg/ml (5-450)
[2024-01-31] MEDS ORDERED: ONDANSETRON 4 MG/2 ML VIAL ONE (06:55)
[2024-01-31] MEDS: ONDANSETRON 4 MG/2 ML VIAL IVPUSH ONE (07:01)
[2024-01-31 07:05] LABS: BASO % 0.4 % (0-2.0); HEMATOCRIT 38.5 % (32.4-45.2); HEMOGLOBIN 12.5 GM/dL (10.7-15.3); LYMPH % 9.2 % (8-40); MCH 29.2 pg (25.7-33.7); MCHC 32.3 g/dl (32.0-36.0); MEAN CELL VOLUME 90.2 fl (80-96); MEAN PLT VOLUME 11.2 fl (7.5-11.1); MONO % 9.1 % (3.8-10.2); NEUT % 81.3 % (42.8-82.8); PLATELET COUNT 306 10^3/uL (134-434); RBC 4.27 M/mm3 (3.60-5.2); RDW 16.3 % (11.6-15.6)
[2024-01-31 07:07] LABS: INR 0.97 (0.83-1.09); PROTHROMBIN TIME (PATIENT) 11.2 SEC (9.7-13.0)
[2024-01-31] MEDS ORDERED: PIPERACILLIN/TAZOB 4.5 GM 4.5 GM/100 ML BAG IVPB ONE (07:08)
[2024-01-31 07:10] LABS: ACTIVATED PTT 28.3 SECONDS (25.2-36.5)
[2024-01-31 08:03] LABS: EPI CELLS 7 /uL (0-25.1); HYALINE CASTS 0 /uL (0-3.1); PH,URINE 5.5 (5.0-8.0); URINE APPEARANCE CLEAR; URINE BACTERIA 73 /uL (0-1359); URINE BILIRUBIN NEGATIVE (NEGATIVE); URINE COLOR YELLOW; URINE GLUCOSE (UA) NEGATIVE (NEGATIVE); URINE KETONE 4+ (NEGATIVE); URINE LEUK ESTERASE NEGATIVE (NEGATIVE); URINE NITRITE NEGATIVE (NEGATIVE); URINE PROTEIN 2+ (NEGATIVE); URINE RBC 55 /uL (0-23.9); URINE UROBILINOGEN 0.2 mg/dL (0.2-1.0); URINE WBC 5 /uL (0-25.8)
[2024-01-31] MEDS: PIPERACILLIN/TAZOB 4.5 GM 4.5 GM in DEXTROSE 5%-WATER 100 ML IVPB ONE (08:25)
[2024-01-31] MEDS ORDERED: VANCOMYCIN 1 GRAM (PRE-DOCKED) 1,000 MG/250 ML BAG IVPB ONE (08:25)
[2024-01-31] MEDS: VANCOMYCIN 1,000 MG in DEXTROSE 5%-WATER - 250 ML IVPB ONE (08:31)
[2024-01-31] MEDS ORDERED: methylPREDNISolone NA SUCC 40 MG/1 ML VIAL ONE ×2 (15:10→15:14)
[2024-01-31] MEDS ORDERED: HEPARIN NA (PORCINE) 5,000 UNITS/ML 1ML VIAL ONE ×2 (15:10→15:13)
[2024-01-31] MEDS: methylPREDNISolone NA SUCC 40 MG/1 ML VIAL IVPUSH SCH (15:24)
[2024-01-31] MEDS: HEPARIN NA (PORCINE) 5,000 UNITS/ML 1ML VIAL SQ SCH (15:24)
[2024-01-31] MEDS ORDERED: PREGABALIN 100 MG CAPSULE ONE (15:53)
[2024-01-31] MEDS: PREGABALIN 100 MG CAPSULE PO SCH (15:54)
[2024-01-31] MEDS: ALBUTEROL SO4 2.5/IPRATROPIUM 0.5 INH SOL 3 ML VIAL.NEB. NEB SCH (16:12)
[2024-01-31] MEDS ORDERED: PIPERACILLIN/TAZOB 3.375 GM 3.375 GM/50 ML BAG IVPB ONE (17:42)
[2024-01-31] MEDS: PIPERACILLIN/TAZOB 3.375 GM 3.375 GM in DEXTROSE 5%-WATER - 50 ML IVPB SCH (17:50)
[2024-01-31] MEDS ORDERED: PIPERACILLIN/TAZOB 3.375 GM 3.375 GM in DEXTROSE 5%-WATER - 50 ML IVPB SCH (18:00)
[2024-01-31] MEDS: DEXTROSE 5%-0.45% SALINE 1,000 ML IV SCH (18:07)
[2024-01-31] MEDS: ACETAMINOPHEN 325 MG TABLET (FP) PO PRN (20:32)
[2024-01-31] MEDS: FLUTICASONE PROP 0.05% 16 GM NASAL SPRAY NS SCH (21:06)
[2024-01-31] MEDS ORDERED: DIVALPROEX NA *ER* EXTEND REL 250 MG TABLET.SA PO SCH (22:00)
[2024-02-01] MEDS: MELATONIN 5 MG TABLETS PO PRN (01:01)
[2024-02-01 07:24] LABS: HEMATOCRIT 33.9 % (32.4-45.2); HEMOGLOBIN 11.1 GM/dL (10.7-15.3); MCH 29.1 pg (25.7-33.7); MCHC 32.8 g/dl (32.0-36.0); MEAN CELL VOLUME 88.8 fl (80-96); MEAN PLT VOLUME 11.1 fl (7.5-11.1); PLATELET COUNT 251 10^3/uL (134-434); RBC 3.81 M/mm3 (3.60-5.2); RDW 15.8 % (11.6-15.6); WHITE BLOOD COUNT 21.5 K/mm3 (4.0-10.0)
[2024-02-01 07:49] LABS: POTASSIUM 4.2 mmol/L (3.5-5.1)
[2024-02-01 08:15] LABS: BLOOD UREA NITROGEN 10.5 mg/dL (7-18)
[2024-02-01 08:18] LABS: CREATININE 0.4 mg/dL (0.55-1.3)
[2024-02-01 08:19] LABS: ANISOCYTOSIS 1+; BILIRUBIN,TOTAL 0.2 mg/dL (0.2-1); MACROCYTOSIS 0; TOT PROT 6.1 g/dl (6.4-8.2)
[2024-02-01 08:33] LABS: CALCIUM 8.4 mg/dL (8.5-10.1)
[2024-02-01 08:34] LABS: ALBUMIN 2.5 g/dl (3.4-5.0)
[2024-02-01] MEDS: POLYETHYLENE GLYCOL (HEALTHYLAX) 3350 17 GM PACKET PO SCH (09:20)
[2024-02-01] MEDS: LORATADINE 10 MG TABLET PO SCH (09:21)
[2024-02-01] MEDS: ROSUVASTATIN CA 20 MG TABLET PO SCH (09:21)
[2024-02-01] MEDS: METHIMAZOLE 5 MG TABLET PO SCH (09:21)
[2024-02-01] MEDS: ESCITALOPRAM OXALATE 10 MG TABLET PO SCH (09:21)
[2024-02-01] MEDS: ASPIRIN COATED 81 MG TABLET.EC PO SCH (09:21)
[2024-02-01] MEDS: FOLIC ACID 1 MG TABLET (FP) PO SCH (09:21)
[2024-02-01] MEDS: ACETAMINOPHEN 1000 MG/100 ML BAG IVPB ONE (18:42)
[2024-02-01] MEDS: PIPERACILLIN/TAZOB 3.375 GM 3.375 GM in DEXTROSE 5%-WATER - 50 ML IVPB SCH (18:46)
[2024-02-01] MEDS: DEXTROSE 5%-NORMAL SALINE 1,000 ML IV SCH (18:46)
[2024-02-01] MEDS ORDERED: DIVALPROEX NA *ER* EXTEND REL 250 MG TABLET.SA PO SCH (18:53)
[2024-02-01 20:54] LABS: BASO % 0.1 % (0-2.0); HEMATOCRIT 28.3 % (32.4-45.2); LYMPH % 9.4 % (8-40); MCH 28.3 pg (25.7-33.7); MEAN CELL VOLUME 88.4 fl (80-96); MEAN PLT VOLUME 10.3 fl (7.5-11.1); MONO % 5.4 % (3.8-10.2); NEUT % 85.1 % (42.8-82.8); PLATELET COUNT 234 10^3/uL (134-434); RDW 15.7 % (11.6-15.6); WHITE BLOOD COUNT 14.3 K/mm3 (4.0-10.0)
[2024-02-01 21:00] LABS: INR 1.03 (0.83-1.09); PROTHROMBIN TIME (PATIENT) 11.9 SEC (9.7-13.0)
[2024-02-01 21:02] LABS: ACTIVATED PTT 28.5 SECONDS (25.2-36.5)
[2024-02-01 21:13] LABS: POTASSIUM 3.7 mmol/L (3.5-5.1)
[2024-02-01 21:15] LABS: BLOOD UREA NITROGEN 19.2 mg/dL (7-18); CALCIUM 7.9 mg/dL (8.5-10.1)
[2024-02-01 21:16] LABS: ALBUMIN 2.3 g/dl (3.4-5.0)
[2024-02-01 21:18] LABS: CREATININE 0.7 mg/dL (0.55-1.3)
[2024-02-01 21:20] LABS: BILIRUBIN,TOTAL 0.3 mg/dL (0.2-1); TOT PROT 5.6 g/dl (6.4-8.2)
[2024-02-01] MEDS: DIVALPROEX NA *ER* EXTEND REL 500 MG TABLET.SA (FP) PO SCH (21:20)
[2024-02-01] MEDS: PRAMIPEXOLE DIHYDROCHLORIDE 0.125 MG TABLET PO SCH (21:20)
[2024-02-01] MEDS: methylPREDNISolone NA SUCC 40 MG/1 ML VIAL IVPUSH SCH (21:21)
[2024-02-01] MEDS: VANCOMYCIN/WATER FOR INJ (PEG) 1,000 MG/200 ML BAG IVPB ONE (21:28)
[2024-02-01] MEDS ORDERED: ACETAMINOPHEN 1000 MG/100 ML BAG IVPB PRN (23:30)
[2024-02-01] MEDS ORDERED: morphine CARPU-JECT 2 MG/1 ML DISP.SYRIN IVPUSH PRN (23:31)
[2024-02-01 23:54] LABS: HEMATOCRIT 28.2 % (32.4-45.2); HEMOGLOBIN 9.3 GM/dL (10.7-15.3); MCH 29.2 pg (25.7-33.7); MCHC 33.1 g/dl (32.0-36.0); MEAN CELL VOLUME 88.2 fl (80-96); MEAN PLT VOLUME 10.8 fl (7.5-11.1); PLATELET COUNT 234 10^3/uL (134-434); RBC 3.19 M/mm3 (3.60-5.2); RDW 15.8 % (11.6-15.6)
[2024-02-02 00:01] LABS: INR 0.99 (0.83-1.09); PROTHROMBIN TIME (PATIENT) 11.5 SEC (9.7-13.0)
[2024-02-02] MEDS: MUPIROCIN 2% TOPICAL OINTMENT FOR DECOLONIZATION NS SCH (00:39)
[2024-02-02] MEDS: SODIUM CHLORIDE 250 ML IV STA (00:39)
[2024-02-02] MEDS ORDERED: ACETAMINOPHEN 325 MG TABLET (FP) PO PRN (01:03)
[2024-02-02] MEDS: DEXTROSE 5%-NORMAL SALINE 1,000 ML IV SCH (02:20)
[2024-02-02] MEDS: PIPERACILLIN/TAZOB 3.375 GM 3.375 GM in DEXTROSE 5%-WATER - 50 ML IVPB SCH (02:36)
[2024-02-02] MEDS: PRAMIPEXOLE DIHYDROCHLORIDE 0.125 MG TABLET PO SCH (05:15)
[2024-02-02] MEDS: PREGABALIN 100 MG CAPSULE PO SCH (05:15)
[2024-02-02 06:23] LABS: HEMATOCRIT 26.2 % (32.4-45.2); HEMOGLOBIN 8.6 GM/dL (10.7-15.3); MCH 28.7 pg (25.7-33.7); MCHC 32.9 g/dl (32.0-36.0); MEAN CELL VOLUME 87.1 fl (80-96); PLATELET COUNT 271 10^3/uL (134-434); RBC 3.01 M/mm3 (3.60-5.2); WHITE BLOOD COUNT 11.3 K/mm3 (4.0-10.0)
[2024-02-02 06:38] LABS: INR 0.94 (0.83-1.09); PROTHROMBIN TIME (PATIENT) 10.9 SEC (9.7-13.0)
[2024-02-02 06:40] LABS: ACTIVATED PTT 26.5 SECONDS (25.2-36.5)
[2024-02-02 06:48] LABS: POTASSIUM 3.7 mmol/L (3.5-5.1)
[2024-02-02] MEDS: ACETAMINOPHEN 1000 MG/100 ML BAG IVPB ONE (06:49)
[2024-02-02 06:50] LABS: ALBUMIN 2.6 g/dl (3.4-5.0)
[2024-02-02 06:51] LABS: BLOOD UREA NITROGEN 16.5 mg/dL (7-18)
[2024-02-02 06:53] LABS: CREATININE 0.5 mg/dL (0.55-1.3)
[2024-02-02 06:55] LABS: BILIRUBIN,TOTAL 0.4 mg/dL (0.2-1)
[2024-02-02] MEDS: ALBUTEROL SO4 2.5/IPRATROPIUM 0.5 INH SOL 3 ML VIAL.NEB. NEB SCH (07:55)
[2024-02-02] MEDS: methylPREDNISolone NA SUCC 40 MG/1 ML VIAL IVPUSH SCH (09:52)
[2024-02-02] MEDS: ROSUVASTATIN CA 20 MG TABLET PO SCH (09:52)
[2024-02-02] MEDS: FOLIC ACID 1 MG TABLET (FP) PO SCH (09:52)
[2024-02-02] MEDS: ESCITALOPRAM OXALATE 10 MG TABLET PO SCH (09:52)
[2024-02-02] MEDS: METHIMAZOLE 5 MG TABLET PO SCH (09:53)
[2024-02-02] MEDS: FLUTICASONE PROP 0.05% 16 GM NASAL SPRAY NS SCH (09:54)
[2024-02-02] MEDS: POLYETHYLENE GLYCOL (HEALTHYLAX) 3350 17 GM PACKET PO SCH (09:55)
[2024-02-02] MEDS ORDERED: MUPIROCIN 2% TOPICAL OINTMENT FOR DECOLONIZATION NS SCH (10:00)
[2024-02-02 13:13] LABS: BASO % 0.2 % (0-2.0); HEMATOCRIT 26.6 % (32.4-45.2); HEMOGLOBIN 8.9 GM/dL (10.7-15.3); LYMPH % 9.8 % (8-40); MCH 29.2 pg (25.7-33.7); MCHC 33.6 g/dl (32.0-36.0); MEAN PLT VOLUME 9.2 fl (7.5-11.1); MONO % 7.5 % (3.8-10.2); NEUT % 82.5 % (42.8-82.8); PLATELET COUNT 278 10^3/uL (134-434); RBC 3.06 M/mm3 (3.60-5.2); RDW 15.2 % (11.6-15.6); WHITE BLOOD COUNT 10.3 K/mm3 (4.0-10.0)
[2024-02-02 13:18] LABS: INR 0.97 (0.83-1.09); PROTHROMBIN TIME (PATIENT) 11.2 SEC (9.7-13.0)
[2024-02-02] MEDS: PREGABALIN 75 MG CAPSULE PO SCH (13:45)
[2024-02-02] MEDS: ACETAMINOPHEN 1000 MG/100 ML BAG IVPB PRN (14:01)
[2024-02-02] MEDS: PANTOPRAZOLE SODIUM 40 MG VIAL IVPUSH ONE (15:46)
[2024-02-02] MEDS ORDERED: DIVALPROEX NA *ER* EXTEND REL 250 MG TABLET.SA PO SCH (22:00)
[2024-02-02] MEDS ORDERED: CHLORHEXIDINE GLUCONATE 4% CLEANSER FOR DECOLONIZATION TP SCH (22:00)
[2024-02-02] MEDS: CHLORHEXIDINE GLUCONATE 4% CLEANSER FOR DECOLONIZATION TP SCH (22:51)
[2024-02-02] MEDS: DIVALPROEX NA *ER* EXTEND REL 250 MG TABLET.SA PO SCH (22:51)
[2024-02-03 07:11] LABS: BASO % 0.1 % (0-2.0); HEMATOCRIT 23.5 % (32.4-45.2); LYMPH % 13.9 % (8-40); MCH 29.5 pg (25.7-33.7); MCHC 34.1 g/dl (32.0-36.0); MEAN CELL VOLUME 86.8 fl (80-96); MEAN PLT VOLUME 9.8 fl (7.5-11.1); MONO % 6.7 % (3.8-10.2); NEUT % 79.3 % (42.8-82.8); PLATELET COUNT 266 10^3/uL (134-434); RBC 2.71 M/mm3 (3.60-5.2); RDW 15.5 % (11.6-15.6); WHITE BLOOD COUNT 8.8 K/mm3 (4.0-10.0)
[2024-02-03 07:14] LABS: PROTHROMBIN TIME (PATIENT) 11.6 SEC (9.7-13.0)
[2024-02-03 07:30] LABS: POTASSIUM 3.6 mmol/L (3.5-5.1)
[2024-02-03 07:32] LABS: BLOOD UREA NITROGEN 14.6 mg/dL (7-18); CALCIUM 7.5 mg/dL (8.5-10.1)
[2024-02-03 07:33] LABS: ALBUMIN 2.2 g/dl (3.4-5.0)
[2024-02-03 07:36] LABS: CREATININE 0.5 mg/dL (0.55-1.3)
[2024-02-03 07:37] LABS: BILIRUBIN,TOTAL 0.3 mg/dL (0.2-1); TOT PROT 5.3 g/dl (6.4-8.2)
[2024-02-03] MEDS: PANTOPRAZOLE 40 MG TABLET PO SCH (09:33)
[2024-02-03] MEDS: ACETAMINOPHEN 1000 MG/100 ML BAG IVPB PRN (14:28)
[2024-02-03] MEDS: MELATONIN 5 MG TABLETS PO PRN (21:02)
[2024-02-03 23:30] VITALS: BMI 16.0
[2024-02-04 06:59] LABS: HEMATOCRIT 26.7 % (32.4-45.2); HEMOGLOBIN 8.9 GM/dL (10.7-15.3); MCH 29.3 pg (25.7-33.7); MCHC 33.5 g/dl (32.0-36.0); MEAN CELL VOLUME 87.5 fl (80-96); MEAN PLT VOLUME 9.9 fl (7.5-11.1); PLATELET COUNT 298 10^3/uL (134-434); RBC 3.06 M/mm3 (3.60-5.2); WHITE BLOOD COUNT 9.9 K/mm3 (4.0-10.0)
[2024-02-04 07:09] LABS: INR 0.98 (0.83-1.09); PROTHROMBIN TIME (PATIENT) 11.4 SEC (9.7-13.0)
[2024-02-04 07:19] LABS: ALBUMIN 2.4 g/dl (3.4-5.0); CALCIUM 8.4 mg/dL (8.5-10.1)
[2024-02-04 07:20] LABS: BLOOD UREA NITROGEN 12.2 mg/dL (7-18)
[2024-02-04 07:23] LABS: CREATININE 0.5 mg/dL (0.55-1.3)
[2024-02-04 07:24] LABS: BILIRUBIN,TOTAL 0.4 mg/dL (0.2-1); TOT PROT 5.6 g/dl (6.4-8.2)
[2024-02-04] MEDS: traMADol HCL 50 MG TABLET PO ONE (09:42)
[2024-02-04 09:48] LABS: ANISOCYTOSIS 0; MACROCYTOSIS 0; TARGET CELLS 2+
[2024-02-04] MEDS: MAG HYDROX/AL HYDROX/SIMETH 30 ML UNIT-DOSE CUP PO ONE (13:58)
[2024-02-04] MEDS: traMADol HCL 50 MG TABLET PO PRN (17:28)
[2024-02-05 06:43] LABS: INR 0.97 (0.83-1.09); PROTHROMBIN TIME (PATIENT) 11.3 SEC (9.7-13.0)
[2024-02-05 06:48] LABS: POTASSIUM 3.7 mmol/L (3.5-5.1)
[2024-02-05 06:56] LABS: ALBUMIN 2.7 g/dl (3.4-5.0); BLOOD UREA NITROGEN 9.5 mg/dL (7-18)
[2024-02-05 06:57] LABS: MAGNESIUM 1.9 mg/dL (1.8-2.4)
[2024-02-05 06:59] LABS: BASO % 0.1 % (0-2.0); CREATININE 0.5 mg/dL (0.55-1.3); EOS % 0.1 % (0-4.5); HEMATOCRIT 30.7 % (32.4-45.2); HEMOGLOBIN 10.3 GM/dL (10.7-15.3); MCH 29.7 pg (25.7-33.7); MCHC 33.7 g/dl (32.0-36.0); MEAN CELL VOLUME 88.2 fl (80-96); MEAN PLT VOLUME 9.8 fl (7.5-11.1); MONO % 10.6 % (3.8-10.2); NEUT % 71.2 % (42.8-82.8); PLATELET COUNT 355 10^3/uL (134-434); RBC 3.48 M/mm3 (3.60-5.2); RDW 15.5 % (11.6-15.6); WHITE BLOOD COUNT 6.9 K/mm3 (4.0-10.0)
[2024-02-05 07:00] LABS: TOT PROT 6.1 g/dl (6.4-8.2)
[2024-02-05 07:01] LABS: BILIRUBIN,TOTAL 0.4 mg/dL (0.2-1)
[2024-02-05] MEDS: traMADol HCL 50 MG TABLET PO ONE (10:32)
[2024-02-05] MEDS ORDERED: KETOROLAC TROMETHAMINE 15 MG/ML VIAL IVPUSH PRN (10:58)
[2024-02-05] MEDS: KETOROLAC TROMETHAMINE 30 MG/1 ML VIAL IVPUSH PRN (12:38)
[2024-02-06] MEDS: methylPREDNISolone NA SUCC 40 MG/1 ML VIAL IVPUSH SCH (09:30)
[2024-02-06] MEDS: DIVALPROEX NA *ER* EXTEND REL 250 MG TABLET.SA PO SCH (20:15)
[2024-02-07] MEDS: AMOX TR/POT CLAV 875MG/125MG TABLETS (FP) PO SCH (17:22)
[2024-02-08] MEDS: traMADol HCL 50 MG TABLET PO PRN (21:41)
[2024-02-10] MEDS: PREGABALIN 75 MG CAPSULE PO SCH (14:13)
[2024-02-10] MEDS: PRAMIPEXOLE DIHYDROCHLORIDE 0.125 MG TABLET PO SCH (14:13)
[2024-02-10] MEDS: MELATONIN 5 MG TABLETS PO PRN (21:14)
[2024-02-10] MEDS: DIVALPROEX NA *ER* EXTEND REL 500 MG TABLET.SA (FP) PO SCH (21:17)
[2024-02-10] MEDS: FLUTICASONE PROP 0.05% 16 GM NASAL SPRAY NS SCH (21:18)
[2024-02-11] MEDS: ESCITALOPRAM OXALATE 10 MG TABLET PO SCH (10:29)
[2024-02-11] MEDS: FOLIC ACID 1 MG TABLET (FP) PO SCH (10:30)
[2024-02-11] MEDS: PANTOPRAZOLE 40 MG TABLET PO SCH (10:30)
[2024-02-11] MEDS: METHIMAZOLE 5 MG TABLET PO SCH (10:31)
[2024-02-11] MEDS: POLYETHYLENE GLYCOL (HEALTHYLAX) 3350 17 GM PACKET PO SCH (10:31)
[2024-02-11] MEDS: ROSUVASTATIN CA 20 MG TABLET PO SCH (21:55)
[2024-02-12 07:51] LABS: POTASSIUM 4.7 mmol/L (3.5-5.1)
[2024-02-12 07:55] LABS: BLOOD UREA NITROGEN 19.6 mg/dL (7-18)
[2024-02-12 07:58] LABS: CREATININE 0.4 mg/dL (0.55-1.3)
[2024-02-12] MEDS: predniSONE 20 MG TABLET (UD) PO SCH (09:56)
[2024-02-12] MEDS: ALBUTEROL SO4 2.5/IPRATROPIUM 0.5 INH SOL 3 ML VIAL.NEB. NEB SCH (11:35)
[2024-02-12] MEDS ORDERED: traMADol HCL 50 MG TABLET PO PRN (16:08)
[2024-02-12] MEDS: SODIUM CHLORIDE 1 GM TABLET PO SCH (16:25)
[2024-02-12] MEDS: AMOX TR/POT CLAV 875MG/125MG TABLETS (FP) PO SCH (17:09)
[2024-02-12] MEDS: traMADol HCL 50 MG TABLET PO PRN (21:33)
[2024-02-13] MEDS ORDERED: ALBUTEROL SO4 HFA INHALER IH PRN (08:53)
[2024-02-13] MEDS: SODIUM CHLORIDE NASAL SPRAY 44 ML BOTTLE NS PRN (09:05)
[2024-02-13] MEDS: BUDESONIDE/FORMETEROL FUMARATE 160/4.5 mcg INHALER IH SCH (13:03)
[2024-02-13 15:12] VITALS: BP 103/77; PULSE 95; RESP 17; TEMP 98
[2024-02-13] MEDS: ACETAMINOPHEN 325 MG TABLET (FP) PO PRN (18:19)
== END 2024-02-13 19:26 | DRG 193 ==
LOC: JER 05:44 → JERBED 09:37 → J4W 19:00 → JICU 02-01 22:38 → J4S 02-05 19:13
PROVIDERS: ADMIT Family Medicine; ATTEND Family Medicine
PROC: 30233L1 Transfusion of Nonautologous Fresh Plasma into Peripheral Vein, Percutaneous Approach (ICD-10-PCS; principal; 2024-02-02)
PROC: 30233K1 Transfusion of Nonautologous Frozen Plasma into Peripheral Vein, Percutaneous Approach (ICD-10-PCS; 2024-02-02)
PROC: 30233N1 Transfusion of Nonautologous Red Blood Cells into Peripheral Vein, Percutaneous Approach (ICD-10-PCS; 2024-02-02)
PROC: 30233R1 Transfusion of Nonautologous Platelets into Peripheral Vein, Percutaneous Approach (ICD-10-PCS; 2024-02-02)
DX: J18.9 Pneumonia, unspecified organism (principal); E43 Unspecified severe protein-calorie malnutrition; J96.21 Acute and chronic respiratory failure with hypoxia; J44.1 Chronic obstructive pulmonary disease with (acute) exacerbation; Z68.1 Body mass index [BMI] 19.9 or less, adult; E87.1 Hypo-osmolality and hyponatremia; D62 Acute posthemorrhagic anemia; J44.0 Chronic obstructive pulmonary disease with (acute) lower respiratory infection; R64 Cachexia; I10 Essential (primary) hypertension; E78.5 Hyperlipidemia, unspecified; M79.7 Fibromyalgia; S30.1XXA Contusion of abdominal wall, initial encounter; X58.XXXA Exposure to other specified factors, initial encounter; Y93.89 Activity, other specified; Y92.89 Other specified places as the place of occurrence of the external cause; Y99.9 Unspecified external cause status
CPT/HCPCS: 0241U-QW; 36415; 36430; 71045-TC-FY; 71275-TC; 74177-TC; 80048; 80053; 81003; 82803; 82962; 83735; 83880; 84436; 84443; 84484; 85025; 85027; 85610; 85730; 86900; 86922; 87040; 87070; 87186; 87205; 87899; 93005; 93010; 94640; 97116-GP; 97162-GP; 99291; J0131; J1644; P9017; P9037; P9038; P9058; Q9967

== ENCOUNTER 2024-06-11 17:47 | Inpatient (IN) | payer OTHER ==
[2024-06-11] MEDS ORDERED: FENTANYL CITRATE/PF 50 MCG/ML VIAL ONE ×2 (19:17→21:31)
[2024-06-11] MEDS ORDERED: ONDANSETRON 4 MG/2 ML VIAL ONE (19:17)
[2024-06-11] MEDS ORDERED: FAMOTIDINE 20 MG/50 ML IVPB 20 MG/50 ML MG IVPB ONE (19:17)
[2024-06-11] MEDS ORDERED: ACETAMINOPHEN INJECTION 100 ML IVPB ONE (19:17)
[2024-06-11] MEDS: SODIUM CHLORIDE 0.9% 500 ML INFUS.BAG IV ONE (19:38)
[2024-06-11] MEDS: ACETAMINOPHEN 1000 MG/100 ML BAG IVPB ONE (19:38)
[2024-06-11] MEDS: FAMOTIDINE 20 MG/50 ML IVPB 20 MG/50 ML MG IVPB ONE (19:38)
[2024-06-11] MEDS: ONDANSETRON 4 MG/2 ML VIAL IVPUSH ONE (19:38)
[2024-06-11 19:47] LABS: BASO % 1.5 % (0-2.0); HEMATOCRIT 37.9 % (32.4-45.2); HEMOGLOBIN 12.6 GM/dL (10.7-15.3); LYMPH % 27.6 % (8-40); MCHC 33.2 g/dl (32.0-36.0); MEAN CELL VOLUME 90.4 fl (80-96); MEAN PLT VOLUME 10.3 fl (7.5-11.1); MONO % 9.1 % (3.8-10.2); NEUT % 61.8 % (42.8-82.8); PLATELET COUNT 305 10^3/uL (134-434); RDW 16.1 % (11.6-15.6); WHITE BLOOD COUNT 7.8 K/mm3 (4.0-10.0)
[2024-06-11 19:56] LABS: INR 0.95 (0.83-1.09); PROTHROMBIN TIME (PATIENT) 10.8 SEC (9.7-13.0)
[2024-06-11 19:59] LABS: ACTIVATED PTT 30.6 SECONDS (25.2-36.5)
[2024-06-11 20:06] LABS: POTASSIUM 4.2 mmol/L (3.5-5.1)
[2024-06-11 20:08] LABS: CALCIUM 9.7 mg/dL (8.5-10.1)
[2024-06-11 20:09] LABS: ALBUMIN 4.3 g/dl (3.4-5.0); BLOOD UREA NITROGEN 12.9 mg/dL (7-18)
[2024-06-11 20:12] LABS: CREATININE 0.6 mg/dL (0.55-1.3)
[2024-06-11 20:13] LABS: BILIRUBIN,TOTAL 1.1 mg/dL (0.2-1); TOT PROT 8.3 g/dl (6.4-8.2)
[2024-06-11 23:30] LABS: EPI CELLS 10 /uL (0-25.1); HYALINE CASTS 1 /uL (0-3.1); PH,URINE 5.5 (5.0-8.0); URINE APPEARANCE CLEAR; URINE BACTERIA 94 /uL (0-1359); URINE BILIRUBIN NEGATIVE (NEGATIVE); URINE COLOR YELLOW; URINE GLUCOSE (UA) NEGATIVE (NEGATIVE); URINE KETONE 2+ (NEGATIVE); URINE LEUK ESTERASE 3+ (NEGATIVE); URINE NITRITE NEGATIVE (NEGATIVE); URINE PROTEIN NEGATIVE (NEGATIVE); URINE RBC 17 /uL (0-23.9); URINE UROBILINOGEN 0.2 mg/dL (0.2-1.0); URINE WBC 421 /uL (0-25.8)
[2024-06-12] MEDS: KETOROLAC TROMETHAMINE 15 MG/ML VIAL IVPUSH ONE (01:01)
[2024-06-12] MEDS ORDERED: FENTANYL CITRATE/PF 50 MCG/ML VIAL ONE (01:10)
[2024-06-12] MEDS ORDERED: CEFTRIAXONE 1 GM/50 ML BAG ONE (01:11)
[2024-06-12] MEDS ORDERED: KETOROLAC TROMETHAMINE 15 MG/ML VIAL ONE (01:11)
[2024-06-12] MEDS: LIDOCAINE 4% PATCH TP ONE (04:40)
[2024-06-12] MEDS: LIDOCAINE PATCH REMOVAL MC ONE (04:43)
[2024-06-12] MEDS ORDERED: DOCUSATE SODIUM 100 MG CAPSULE (FP) PO PRN (05:25)
[2024-06-12] MEDS: PREGABALIN 100 MG CAPSULE PO SCH (05:31)
[2024-06-12] MEDS: ACETAMINOPHEN 1000 MG/100 ML BAG IVPB PRN (05:31)
[2024-06-12] MEDS: SODIUM CHLORIDE 1,000 ML IV SCH (05:31)
[2024-06-12] MEDS ORDERED: PREGABALIN 100 MG CAPSULE ONE (05:32)
[2024-06-12] MEDS ORDERED: ACETAMINOPHEN INJECTION 100 ML IVPB ONE (05:33)
[2024-06-12 06:24] LABS: BASO % 1.5 % (0-2.0); EOS % 0.1 % (0-4.5); HEMATOCRIT 35.7 % (32.4-45.2); HEMOGLOBIN 11.6 GM/dL (10.7-15.3); LYMPH % 29.7 % (8-40); MCH 29.9 pg (25.7-33.7); MCHC 32.4 g/dl (32.0-36.0); MEAN CELL VOLUME 92.3 fl (80-96); MEAN PLT VOLUME 10.8 fl (7.5-11.1); MONO % 8.5 % (3.8-10.2); NEUT % 60.2 % (42.8-82.8); PLATELET COUNT 287 10^3/uL (134-434); RBC 3.87 M/mm3 (3.60-5.2); RDW 15.7 % (11.6-15.6); WHITE BLOOD COUNT 9.6 K/mm3 (4.0-10.0)
[2024-06-12 06:46] LABS: POTASSIUM 4.3 mmol/L (3.5-5.1)
[2024-06-12 06:47] LABS: CALCIUM 9.2 mg/dL (8.5-10.1)
[2024-06-12 06:48] LABS: BLOOD UREA NITROGEN 13.8 mg/dL (7-18)
[2024-06-12 07:09] LABS: CREATININE 0.6 mg/dL (0.55-1.3)
[2024-06-12] MEDS ORDERED: KETOROLAC TROMETHAMINE 30 MG/1 ML VIAL ONE (07:23)
[2024-06-12] MEDS: KETOROLAC TROMETHAMINE 15 MG/ML VIAL IVPUSH PRN (07:37)
[2024-06-12] MEDS: BUDESONIDE/FORMETEROL FUMARATE 160/4.5 mcg INHALER IH SCH (11:00)
[2024-06-12] MEDS ORDERED: ALBUTEROL SO4 2.5/IPRATROPIUM 0.5 INH SOL 3 ML VIAL.NEB. NEB PRN (12:25)
[2024-06-12 12:39] VITALS: BMI 14.2
[2024-06-12 13:12] LABS: ALBUMIN 3.9 g/dl (3.4-5.0)
[2024-06-12 13:14] LABS: BILIRUBIN,DIRECT 0.2 mg/dL (0.0-0.2)
[2024-06-12 13:16] LABS: BILIRUBIN,TOTAL 0.9 mg/dL (0.2-1); TOT PROT 7.2 g/dl (6.4-8.2)
[2024-06-12] MEDS: DIVALPROEX SODIUM 500 MG TABLET E.C. PO SCH (13:42)
[2024-06-12] MEDS: LORATADINE 10 MG TABLET PO SCH (13:42)
[2024-06-12] MEDS: ESCITALOPRAM OXALATE 10 MG TABLET PO SCH (13:42)
[2024-06-12] MEDS: FOLIC ACID 1 MG TABLET (FP) PO SCH (13:42)
[2024-06-12] MEDS: METHIMAZOLE 5 MG TABLET PO SCH (13:42)
[2024-06-12] MEDS: FLUTICASONE PROP 0.05% 16 GM NASAL SPRAY NS SCH (13:43)
[2024-06-12] MEDS: CEFTRIAXONE 2 GM in DEXTROSE 5%-WATER 100 ML IVPB SCH (18:24)
[2024-06-12] MEDS: POLYETHYLENE GLYCOL (HEALTHYLAX) 3350 17 GM PACKET PO SCH (21:46)
[2024-06-12] MEDS: ROSUVASTATIN CA 20 MG TABLET PO SCH (21:46)
[2024-06-13] MEDS: PANTOPRAZOLE 40 MG TABLET PO SCH (09:36)
[2024-06-13] MEDS: ARTIFICIAL TEARS OPHTHALMIC DROPS OU PRN (22:42)
[2024-06-13] MEDS: MELATONIN 5 MG TABLETS PO PRN (22:45)
[2024-06-14] MEDS: ERTAPENEM SODIUM 1 GM in SODIUM CHLORIDE 50 ML IVPB SCH (22:27)
[2024-06-14] MEDS: CLOTRIMAZOLE 1% VAGINAL CREAM WITH APPLICATOR 45 GM TUBE VG SCH (22:30)
[2024-06-15] MEDS ORDERED: traMADol HCL 50 MG TABLET PO PRN (07:19)
[2024-06-15] MEDS ORDERED: DOCUSATE SODIUM 100 MG CAPSULE (FP) PO PRN (07:36)
[2024-06-15] MEDS: MAG HYDROX/AL HYDROX/SIMETH 30 ML UNIT-DOSE CUP PO PRN (13:44)
[2024-06-15] MEDS: oxyCODONE HCL 5 MG TABLET PO PRN (18:38)
[2024-06-16 10:04] LABS: HEMATOCRIT 31.6 % (32.4-45.2); HEMOGLOBIN 10.4 GM/dL (10.7-15.3); MCH 30.1 pg (25.7-33.7); MCHC 32.8 g/dl (32.0-36.0); MEAN CELL VOLUME 91.8 fl (80-96); MEAN PLT VOLUME 11.4 fl (7.5-11.1); PLATELET COUNT 192 10^3/uL (134-434); RBC 3.44 M/mm3 (3.60-5.2); RDW 15.5 % (11.6-15.6)
[2024-06-16 10:27] LABS: POTASSIUM 4.8 mmol/L (3.5-5.1)
[2024-06-16 10:37] LABS: BLOOD UREA NITROGEN 3.9 mg/dL (7-18); CALCIUM 8.4 mg/dL (8.5-10.1)
[2024-06-16 10:40] LABS: CREATININE 0.4 mg/dL (0.55-1.3)
[2024-06-16 10:42] LABS: BILIRUBIN,TOTAL 0.5 mg/dL (0.2-1); TOT PROT 5.9 g/dl (6.4-8.2)
[2024-06-17 08:36] LABS: BASO % 1.4 % (0-2.0); EOS % 3.5 % (0-4.5); HEMATOCRIT 33.1 % (32.4-45.2); HEMOGLOBIN 10.9 GM/dL (10.7-15.3); LYMPH % 27.3 % (8-40); MONO % 12.2 % (3.8-10.2); NEUT % 55.6 % (42.8-82.8); PLATELET COUNT 217 10^3/uL (134-434); RBC 3.64 M/mm3 (3.60-5.2); RDW 15.9 % (11.6-15.6); WHITE BLOOD COUNT 9.2 K/mm3 (4.0-10.0)
[2024-06-17 08:43] LABS: PROTHROMBIN TIME (PATIENT) 11.3 SEC (9.7-13.0)
[2024-06-17 09:04] LABS: POTASSIUM 4.6 mmol/L (3.5-5.1)
[2024-06-17 09:09] LABS: ALBUMIN 3.2 g/dl (3.4-5.0); CALCIUM 8.9 mg/dL (8.5-10.1)
[2024-06-17 09:10] LABS: BLOOD UREA NITROGEN 5.4 mg/dL (7-18)
[2024-06-17 09:13] LABS: CREATININE 0.4 mg/dL (0.55-1.3)
[2024-06-17 09:14] LABS: BILIRUBIN,TOTAL 0.8 mg/dL (0.2-1); TOT PROT 6.3 g/dl (6.4-8.2)
[2024-06-18 17:13] VITALS: BP 123/65; PULSE 74; RESP 18; TEMP 98.6
== END 2024-06-18 17:27 | DRG 689 ==
LOC: JER 17:47 → JERBED 23:58 → J8W 06-12 08:57 → OBSVTOIN 06-12 15:48 → J8W 06-13 01:19
PROVIDERS: ADMIT Internal Medicine; ATTEND Family Medicine
PROC: 0DJ08ZZ Inspection of Upper Intestinal Tract, Via Natural or Artificial Opening Endoscopic (ICD-10-PCS; principal; 2024-06-17 12:00)
DX: N12 Tubulo-interstitial nephritis, not specified as acute or chronic (principal); E43 Unspecified severe protein-calorie malnutrition; J98.11 Atelectasis; Z68.1 Body mass index [BMI] 19.9 or less, adult; E46 Unspecified protein-calorie malnutrition; R64 Cachexia; I10 Essential (primary) hypertension; E78.5 Hyperlipidemia, unspecified
CPT/HCPCS: 0241U-QW; 36415; 71045-TC-FY; 74177-TC; 80048; 80053; 80076; 81003; 83605; 83690; 84484; 85025; 85027; 85610; 85730; 86850; 86900; 86901; 87086; 87186; 93005; 93010; 97116-GP; 97161-GP; 99285-25; G0378; J0131; Q9967

== ENCOUNTER 2024-07-14 03:13 | Inpatient (IN) | payer OTHER ==
[2024-07-14 03:24] VITALS: BMI 15.7
[2024-07-14 04:18] LABS: VENOUS BASE EXCESS 2.9 mmol/L (-2-2); VENOUS O2 SATURATION 30.2 % (70-80); VENOUS PCO2 61.6 mmHg (38-52); VENOUS PH 7.318 (7.310-7.410)
[2024-07-14 04:20] LABS: HEMATOCRIT 24.2 % (32.4-45.2); HEMOGLOBIN 7.9 GM/dL (10.7-15.3); MCHC 32.6 g/dl (32.0-36.0); MEAN CELL VOLUME 92.1 fl (80-96); MEAN PLT VOLUME 11.6 fl (7.5-11.1); PLATELET COUNT 145 10^3/uL (134-434); RBC 2.63 M/mm3 (3.60-5.2); RDW 15.7 % (11.6-15.6); WHITE BLOOD COUNT 8.2 K/mm3 (4.0-10.0)
[2024-07-14 04:48] LABS: POTASSIUM 3.8 mmol/L (3.5-5.1)
[2024-07-14 04:50] LABS: CALCIUM 8.1 mg/dL (8.5-10.1)
[2024-07-14 04:51] LABS: ALBUMIN 2.3 g/dl (3.4-5.0); BLOOD UREA NITROGEN 5.7 mg/dL (7-18); MAGNESIUM 1.6 mg/dL (1.8-2.4)
[2024-07-14 04:54] LABS: CREATININE 0.4 mg/dL (0.55-1.3)
[2024-07-14 04:55] LABS: BILIRUBIN,TOTAL 0.2 mg/dL (0.2-1)
[2024-07-14 04:56] LABS: TOT PROT 5.4 g/dl (6.4-8.2)
[2024-07-14 04:58] LABS: ANISOCYTOSIS 1+; MACROCYTOSIS 1+
[2024-07-14] MEDS ORDERED: MAGNESIUM SULFATE IN WATER 2 GM/50 ML IVPB IVPB ONE (05:28)
[2024-07-14] MEDS: MAGNESIUM SULFATE IN WATER 2 GM/50 ML IVPB IVPB ONE (05:34)
[2024-07-14 06:06] LABS: EPI CELLS 3 /uL (0-25.1); HYALINE CASTS 0 /uL (0-3.1); URINE APPEARANCE CLEAR; URINE BACTERIA 709 /uL (0-1359); URINE BILIRUBIN NEGATIVE (NEGATIVE); URINE COLOR YELLOW; URINE GLUCOSE (UA) NEGATIVE (NEGATIVE); URINE KETONE NEGATIVE (NEGATIVE); URINE LEUK ESTERASE 3+ (NEGATIVE); URINE NITRITE NEGATIVE (NEGATIVE); URINE PROTEIN NEGATIVE (NEGATIVE); URINE RBC 43 /uL (0-23.9); URINE UROBILINOGEN 0.2 mg/dL (0.2-1.0); URINE WBC 192 /uL (0-25.8)
[2024-07-14] MEDS ORDERED: DOCUSATE SODIUM 100 MG CAPSULE (FP) PO PRN (06:48)
[2024-07-14] MEDS ORDERED: oxyCODONE HCL 5 MG TABLET PO PRN (07:16)
[2024-07-14] MEDS: ALBUTEROL SO4 0.083% IH SOL 2.5 MG/3 ML VIAL.NEB. NEB SCH (08:34)
[2024-07-14] MEDS ORDERED: PYRIDOXINE HCL (B-6) 100 MG TABLET PO SCH (10:00)
[2024-07-14] MEDS ORDERED: PANTOPRAZOLE 40 MG TABLET PO SCH (10:00)
[2024-07-14] MEDS: DIVALPROEX SODIUM 500 MG TABLET E.C. PO SCH (10:28)
[2024-07-14] MEDS: PANTOPRAZOLE 40 MG TABLET PO SCH (10:28)
[2024-07-14] MEDS: FOLIC ACID 1 MG TABLET (FP) PO SCH (10:28)
[2024-07-14] MEDS: METHIMAZOLE 5 MG TABLET PO SCH (10:28)
[2024-07-14] MEDS: BUDESONIDE/FORMETEROL FUMARATE 160/4.5 mcg INHALER IH SCH (10:29)
[2024-07-14] MEDS: ERTAPENEM SODIUM 1 GM in SODIUM CHLORIDE 50 ML IVPB ONE (10:29)
[2024-07-14 10:31] LABS: BASO % 0.8 % (0-2.0); EOS % 0.8 % (0-4.5); HEMATOCRIT 33.5 % (32.4-45.2); HEMOGLOBIN 10.5 GM/dL (10.7-15.3); LYMPH % 14.7 % (8-40); MCH 29.3 pg (25.7-33.7); MCHC 31.3 g/dl (32.0-36.0); MEAN CELL VOLUME 93.8 fl (80-96); MEAN PLT VOLUME 11.3 fl (7.5-11.1); MONO % 11.8 % (3.8-10.2); NEUT % 71.9 % (42.8-82.8); RBC 3.57 M/mm3 (3.60-5.2); RDW 15.9 % (11.6-15.6); RETICULOCYTES 1.27 % (0.5-1.5); WHITE BLOOD COUNT 12.2 K/mm3 (4.0-10.0)
[2024-07-14 10:32] LABS: INR 0.89 (0.83-1.09); PROTHROMBIN TIME (PATIENT) 10.3 SEC (9.7-13.0)
[2024-07-14 10:35] LABS: ACTIVATED PTT 28.3 SECONDS (25.2-36.5)
[2024-07-14] MEDS: VITAMIN B COMPLEX W/C COMBO TABLET (FP) PO SCH (11:27)
[2024-07-14] MEDS: PYRIDOXINE HCL (B-6) 50 MG TABLET (FP) PO SCH (11:32)
[2024-07-14] MEDS: guaiFENesin/D-METHORPHAN TAB.ER.12H PO SCH (11:40)
[2024-07-14 12:51] LABS: PLATELET COUNT 167 10^3/uL (134-434)
[2024-07-14 12:55] LABS: BASO % 0.8 % (0-2.0); EOS % 0.6 % (0-4.5); HEMATOCRIT 32.8 % (32.4-45.2); HEMOGLOBIN 10.4 GM/dL (10.7-15.3); LYMPH % 19.6 % (8-40); MCH 29.5 pg (25.7-33.7); MCHC 31.8 g/dl (32.0-36.0); MEAN CELL VOLUME 92.6 fl (80-96); MEAN PLT VOLUME 11.9 fl (7.5-11.1); MONO % 13.7 % (3.8-10.2); NEUT % 65.3 % (42.8-82.8); PLATELET COUNT 171 10^3/uL (134-434); RBC 3.54 M/mm3 (3.60-5.2); RDW 15.9 % (11.6-15.6); WHITE BLOOD COUNT 12.4 K/mm3 (4.0-10.0)
[2024-07-14] MEDS: PREGABALIN 100 MG CAPSULE PO SCH (14:24)
[2024-07-14] MEDS: ACETAMINOPHEN 325 MG TABLET (FP) PO PRN (14:24)
[2024-07-14] MEDS: ROSUVASTATIN CA 20 MG TABLET PO SCH (22:21)
[2024-07-14] MEDS: MELATONIN 5 MG TABLETS PO PRN (22:21)
[2024-07-14 23:44] VITALS: RESP 18
[2024-07-15] MEDS: ERTAPENEM SODIUM 1 GM in SODIUM CHLORIDE 50 ML IVPB ONE (02:11)
[2024-07-15 10:19] LABS: BASO % 0.4 % (0-2.0); EOS % 0.3 % (0-4.5); HEMATOCRIT 32.4 % (32.4-45.2); HEMOGLOBIN 10.3 GM/dL (10.7-15.3); LYMPH % 16.5 % (8-40); MCH 29.5 pg (25.7-33.7); MCHC 31.9 g/dl (32.0-36.0); MEAN CELL VOLUME 92.5 fl (80-96); MONO % 9.9 % (3.8-10.2); NEUT % 72.9 % (42.8-82.8); PLATELET COUNT 173 10^3/uL (134-434); RBC 3.51 M/mm3 (3.60-5.2); RDW 15.2 % (11.6-15.6); WHITE BLOOD COUNT 14.7 K/mm3 (4.0-10.0)
[2024-07-15 10:55] LABS: POTASSIUM 4.1 mmol/L (3.5-5.1)
[2024-07-15 11:15] LABS: CREATININE 0.4 mg/dL (0.55-1.3)
[2024-07-15 11:16] LABS: CALCIUM 8.7 mg/dL (8.5-10.1)
[2024-07-15 11:17] LABS: PHOSPHOROUS 2.6 mg/dL (2.5-4.9)
[2024-07-15 12:16] VITALS: BP 97/60; PULSE 104; TEMP 97.9
== END 2024-07-15 15:33 | DRG 690 ==
LOC: JER 03:13 → JERBED 06:22 → J8W 08:57
PROVIDERS: ADMIT Family Medicine; ATTEND Family Medicine
DX: N39.0 Urinary tract infection, site not specified (principal); T48.1X5A Adverse effect of skeletal muscle relaxants [neuromuscular blocking agents], initial encounter; J44.9 Chronic obstructive pulmonary disease, unspecified; R53.83 Other fatigue; N28.1 Cyst of kidney, acquired; I10 Essential (primary) hypertension; E78.5 Hyperlipidemia, unspecified; M79.7 Fibromyalgia; D64.9 Anemia, unspecified; K21.9 Gastro-esophageal reflux disease without esophagitis; K58.9 Irritable bowel syndrome, unspecified; K59.00 Constipation, unspecified; E04.1 Nontoxic single thyroid nodule; F32.A Depression, unspecified; M54.50 Low back pain, unspecified
CPT/HCPCS: 0241U-QW; 36415; 71045-TC-FY; 80048; 80053; 81003; 82728; 82803; 83540; 83550; 83615; 83735; 84100; 84484; 85025; 85045; 85610; 85730; 86850; 86900; 86901; 87086; 87186; 93005; 93010; 94640; 99285-25

== ENCOUNTER 2024-08-13 16:25 | Inpatient (IN) | payer OTHER ==
[2024-08-13 16:49] VITALS: BMI 15.0
[2024-08-13] MEDS: ACETAMINOPHEN 500 MG TABLET (FP) PO ONE (17:25)
[2024-08-13] MEDS ORDERED: ACETAMINOPHEN 325 MG TABLET (FP) ONE (17:31)
[2024-08-13] MEDS ORDERED: ONDANSETRON 4 MG/2 ML VIAL ONE (20:43)
[2024-08-13] MEDS: ONDANSETRON 4 MG/2 ML VIAL IVPUSH ONE (20:49)
[2024-08-13] MEDS ORDERED: ACETAMINOPHEN INJECTION 100 ML ONE (20:53)
[2024-08-13] MEDS: ACETAMINOPHEN 1000 MG/100 ML BAG IVPB ONE (21:23)
[2024-08-13] MEDS: SODIUM CHLORIDE 0.9% 500 ML INFUS.BAG IV ONE (21:25)
[2024-08-13 22:28] LABS: BASO % 0.3 % (0-2.0); EOS % 0.1 % (0-4.5); HEMATOCRIT 36.1 % (32.4-45.2); HEMOGLOBIN 11.7 GM/dL (10.7-15.3); LYMPH % 6.3 % (8-40); MCH 30.1 pg (25.7-33.7); MCHC 32.3 g/dl (32.0-36.0); MEAN CELL VOLUME 93.2 fl (80-96); MEAN PLT VOLUME 10.1 fl (7.5-11.1); MONO % 5.4 % (3.8-10.2); NEUT % 87.9 % (42.8-82.8); PLATELET COUNT 244 10^3/uL (134-434); RBC 3.88 M/mm3 (3.60-5.2); RDW 15.8 % (11.6-15.6); WHITE BLOOD COUNT 25.2 K/mm3 (4.0-10.0)
[2024-08-13 22:34] LABS: INR 0.98 (0.83-1.09); PROTHROMBIN TIME (PATIENT) 11.1 SEC (9.7-13.0)
[2024-08-13 22:37] LABS: ACTIVATED PTT 31.4 SECONDS (25.2-36.5)
[2024-08-13 22:43] LABS: POTASSIUM 4.8 mmol/L (3.5-5.1)
[2024-08-13 22:47] LABS: ALBUMIN 3.2 g/dl (3.4-5.0); BLOOD UREA NITROGEN 15.9 mg/dL (7-18)
[2024-08-13 22:52] LABS: BILIRUBIN,TOTAL 0.6 mg/dL (0.2-1); TOT PROT 6.8 g/dl (6.4-8.2)
[2024-08-13 23:08] LABS: ANISOCYTOSIS 1+; MACROCYTOSIS 1+
[2024-08-14] MEDS ORDERED: KETOROLAC TROMETHAMINE 15 MG/ML VIAL ONE (02:29)
[2024-08-14] MEDS: SODIUM CHLORIDE 1,000 ML IV SCH (03:29)
[2024-08-14] MEDS: KETOROLAC TROMETHAMINE 15 MG/ML VIAL IVPUSH ONE (03:30)
[2024-08-14 04:20] LABS: EPI CELLS 17 /uL (0-25.1); HYALINE CASTS 6 /uL (0-3.1); URINE APPEARANCE CLEAR; URINE BACTERIA 3 /uL (0-1359); URINE BILIRUBIN NEGATIVE (NEGATIVE); URINE COLOR YELLOW; URINE GLUCOSE (UA) NEGATIVE (NEGATIVE); URINE KETONE TRACE (NEGATIVE); URINE LEUK ESTERASE NEGATIVE (NEGATIVE); URINE NITRITE NEGATIVE (NEGATIVE); URINE PROTEIN 1+ (NEGATIVE); URINE RBC 27 /uL (0-23.9); URINE UROBILINOGEN 0.2 mg/dL (0.2-1.0); URINE WBC 48 /uL (0-25.8)
[2024-08-14] MEDS ORDERED: ACETAMINOPHEN INJECTION 100 ML ONE ×3 (06:08→19:37)
[2024-08-14] MEDS ORDERED: MORPHINE SULFATE 2 MG/ML SYRINGE ONE (06:08)
[2024-08-14] MEDS: morphine CARPU-JECT 2 MG/1 ML DISP.SYRIN IVPUSH ONE (06:21)
[2024-08-14] MEDS: ACETAMINOPHEN 1000 MG/100 ML BAG IVPB SCH (06:21)
[2024-08-14] MEDS: BUDESONIDE/FORMETEROL FUMARATE 160/4.5 mcg INHALER IH SCH (10:07)
[2024-08-14] MEDS ORDERED: DIVALPROEX NA *ER* EXTEND REL 250 MG TABLET.SA ONE (10:39)
[2024-08-14] MEDS: DIVALPROEX NA *ER* EXTEND REL 500 MG TABLET.SA (FP) PO SCH (10:53)
[2024-08-14] MEDS: MORPHINE SULFATE 2 MG/ML SYRINGE IVPUSH ONE (11:35)
[2024-08-14] MEDS ORDERED: traMADol HCL 50 MG TABLET ONE (13:16)
[2024-08-14] MEDS: traMADol HCL 50 MG TABLET PO PRN (13:18)
[2024-08-15] MEDS: ROSUVASTATIN CA 10 MG TABLET PO SCH (04:56)
[2024-08-15] MEDS: oxyCODONE HCL 5 MG TABLET PO PRN (07:45)
[2024-08-15 11:14] LABS: HEMATOCRIT 32.8 % (32.4-45.2); HEMOGLOBIN 10.2 GM/dL (10.7-15.3); MCH 29.2 pg (25.7-33.7); MEAN PLT VOLUME 11.2 fl (7.5-11.1); PLATELET COUNT 168 10^3/uL (134-434); RBC 3.49 M/mm3 (3.60-5.2); RDW 16.1 % (11.6-15.6); WHITE BLOOD COUNT 21.9 K/mm3 (4.0-10.0)
[2024-08-15 11:41] LABS: POTASSIUM 4.3 mmol/L (3.5-5.1)
[2024-08-15 11:46] LABS: CALCIUM 8.1 mg/dL (8.5-10.1)
[2024-08-15 11:47] LABS: BLOOD UREA NITROGEN 15.5 mg/dL (7-18); MAGNESIUM 1.8 mg/dL (1.8-2.4)
[2024-08-15 11:50] LABS: CREATININE 0.5 mg/dL (0.55-1.3)
[2024-08-15 11:54] LABS: PHOSPHOROUS 2.2 mg/dL (2.5-4.9)
[2024-08-15] MEDS: ACETAMINOPHEN 325 MG TABLET (FP) PO PRN (12:03)
[2024-08-15] MEDS: methylPREDNISolone NA SUCC 40 MG/1 ML VIAL IVPUSH SCH (12:11)
[2024-08-15 12:19] LABS: ANISOCYTOSIS 0; MACROCYTOSIS 0
[2024-08-16] MEDS ORDERED: FENTANYL PATCH WASTE TD PRN (13:47)
[2024-08-16] MEDS: PREGABALIN 100 MG CAPSULE PO SCH (15:51)
[2024-08-16] MEDS: fentaNYL 12mcg/hr PATCH.TD72 TD SCH (15:51)
[2024-08-16] MEDS: ESCITALOPRAM OXALATE 10 MG TABLET PO SCH (15:51)
[2024-08-16] MEDS: POLYETHYLENE GLYCOL (HEALTHYLAX) 3350 17 GM PACKET PO SCH (21:50)
[2024-08-17 09:51] LABS: BASO % 0.3 % (0-2.0); HEMATOCRIT 29.1 % (32.4-45.2); HEMOGLOBIN 9.4 GM/dL (10.7-15.3); LYMPH % 5.5 % (8-40); MCH 29.7 pg (25.7-33.7); MCHC 32.2 g/dl (32.0-36.0); MEAN CELL VOLUME 92.2 fl (80-96); MEAN PLT VOLUME 11.6 fl (7.5-11.1); MONO % 7.1 % (3.8-10.2); NEUT % 87.1 % (42.8-82.8); PLATELET COUNT 161 10^3/uL (134-434); RBC 3.16 M/mm3 (3.60-5.2); RDW 15.8 % (11.6-15.6); WHITE BLOOD COUNT 17.3 K/mm3 (4.0-10.0)
[2024-08-17] MEDS: predniSONE 20 MG TABLET (UD) PO SCH (10:06)
[2024-08-17] MEDS: METHIMAZOLE 5 MG TABLET PO SCH (10:06)
[2024-08-17 10:12] LABS: POTASSIUM 3.6 mmol/L (3.5-5.1)
[2024-08-17 10:19] LABS: CALCIUM 8.1 mg/dL (8.5-10.1)
[2024-08-17 10:20] LABS: BLOOD UREA NITROGEN 23.2 mg/dL (7-18)
[2024-08-17 10:23] LABS: CREATININE 0.7 mg/dL (0.55-1.3)
[2024-08-17 10:24] LABS: BILIRUBIN,TOTAL 0.5 mg/dL (0.2-1)
[2024-08-17 10:25] LABS: ALBUMIN 2.6 g/dl (3.4-5.0); TOT PROT 5.8 g/dl (6.4-8.2)
[2024-08-18 04:39] VITALS: TEMP 98.6
[2024-08-18 08:06] LABS: BASO % 0.2 % (0-2.0); EOS % 0.1 % (0-4.5); HEMATOCRIT 26.3 % (32.4-45.2); HEMOGLOBIN 8.5 GM/dL (10.7-15.3); LYMPH % 15.4 % (8-40); MCH 29.4 pg (25.7-33.7); MCHC 32.1 g/dl (32.0-36.0); MEAN CELL VOLUME 91.7 fl (80-96); MEAN PLT VOLUME 11.7 fl (7.5-11.1); MONO % 11.9 % (3.8-10.2); NEUT % 72.4 % (42.8-82.8); PLATELET COUNT 161 10^3/uL (134-434); RBC 2.87 M/mm3 (3.60-5.2); RDW 16.1 % (11.6-15.6); WHITE BLOOD COUNT 14.4 K/mm3 (4.0-10.0)
[2024-08-18 14:40] VITALS: RESP 20
[2024-08-18] MEDS: FLU VACCINE (FLULAVAL) PF 45 MCG/0.5 ML SYRINGE 2024-2025 IM ONE (15:45)
[2024-08-18 20:21] VITALS: BP 121/73; PULSE 80
== END 2024-08-18 22:45 | DRG 562 ==
LOC: JER 16:25 → JERBED 22:59 → J6S 08-14 23:23
PROVIDERS: ADMIT Internal Medicine; ATTEND Family Medicine
DX: S82.231A Displaced oblique fracture of shaft of right tibia, initial encounter for closed fracture (principal); E43 Unspecified severe protein-calorie malnutrition; S72.434A Nondisplaced fracture of medial condyle of right femur, initial encounter for closed fracture; Z68.1 Body mass index [BMI] 19.9 or less, adult; R64 Cachexia; I10 Essential (primary) hypertension; E78.5 Hyperlipidemia, unspecified; M79.7 Fibromyalgia; K58.9 Irritable bowel syndrome, unspecified; S90.122A Contusion of left lesser toe(s) without damage to nail, initial encounter; K21.9 Gastro-esophageal reflux disease without esophagitis; K44.9 Diaphragmatic hernia without obstruction or gangrene; K59.00 Constipation, unspecified; F32.A Depression, unspecified; E04.1 Nontoxic single thyroid nodule; M81.0 Age-related osteoporosis without current pathological fracture; R53.1 Weakness; G89.29 Other chronic pain; R26.81 Unsteadiness on feet; G62.9 Polyneuropathy, unspecified; Z90.81 Acquired absence of spleen; Z99.81 Dependence on supplemental oxygen; W05.0XXA Fall from non-moving wheelchair, initial encounter; Y92.480 Sidewalk as the place of occurrence of the external cause; Y99.9 Unspecified external cause status; Y93.9 Activity, unspecified
CPT/HCPCS: 0241U-QW; 36415; 71045-TC-FY; 71275-TC; 72170-TC-FY; 73564-TC-LT-FY; 73564-TC-RT-FY; 73590-TC-LT-FY; 73590-TC-RT-FY; 73700-TC-RT; 80048; 80053; 81003; 83735; 84100; 84443; 85025; 85610; 85730; 86850; 86900; 86901; 87040; 87086; 90656; 99285-25; G0008; J0131; Q9967

== ENCOUNTER 2025-03-02 09:49 | Inpatient (IN) | payer OTHER ==
[2025-03-02] MEDS ORDERED: ACETAMINOPHEN INJECTION 100 ML ONE (10:43)
[2025-03-02] MEDS ORDERED: FAMOTIDINE 20 MG/50 ML IVPB 20 MG/50 ML MG IVPB ONE (10:43)
[2025-03-02] MEDS ORDERED: MAG HYDROX/AL HYDROX/SIMETH 30 ML UNIT-DOSE CUP ONE (10:43)
[2025-03-02] MEDS: ACETAMINOPHEN 1000 MG/100 ML BAG IVPB ONE ×2 (11:16→17:28)
[2025-03-02] MEDS: FAMOTIDINE 20 MG/50 ML IVPB 20 MG/50 ML MG IVPB ONE (11:16)
[2025-03-02] MEDS: MAG HYDROX/AL HYDROX/SIMETH 30 ML UNIT-DOSE CUP PO ONE (11:16)
[2025-03-02 11:38] VITALS: BMI 16.5
[2025-03-02 11:43] LABS: VENOUS BASE EXCESS 0.9 mmol/L (-2-2); VENOUS O2 SATURATION 44.9 % (70-80); VENOUS PCO2 54.2 mmHg (38-52); VENOUS PH 7.327 (7.310-7.410)
[2025-03-02 11:45] LABS: HEMATOCRIT 35.3 % (34.1-44.9); HEMOGLOBIN 11.6 g/dL (11.2-15.7); MCHC 32.9 g/dl (32.2-35.5)
[2025-03-02 11:47] LABS: MEAN CELL VOLUME 87.2 fl (79.4-94.8); MEAN PLT VOLUME 12.9 fl (9.4-12.3); PLATELET COUNT 236 x10^3/uL (182-369); RDW 15.6 % (12.4-16.6)
[2025-03-02 11:52] LABS: INR 1.06 (0.83-1.09); PROTHROMBIN TIME (PATIENT) 11.5 SEC (9.7-13.0)
[2025-03-02 11:55] LABS: ACTIVATED PTT 30.8 SECONDS (25.2-36.5)
[2025-03-02 12:02] LABS: POTASSIUM 4.5 mmol/L (3.5-5.1)
[2025-03-02 12:05] LABS: ALBUMIN 3.4 g/dl (3.4-5.0); BLOOD UREA NITROGEN 10.2 mg/dL (7-18); CALCIUM 9.3 mg/dL (8.5-10.1)
[2025-03-02 12:09] LABS: CREATININE 0.8 mg/dL (0.55-1.3)
[2025-03-02 12:10] LABS: BILIRUBIN,TOTAL 0.7 mg/dL (0.2-1); EPI CELLS 1 /uL (0-25.1); HYALINE CASTS 0 /uL (0-3.1); PH,URINE 5.5 (5.0-8.0); TOT PROT 6.8 g/dl (6.4-8.2); URINE APPEARANCE TURBID; URINE BACTERIA >9,000 /uL (0-1359); URINE BILIRUBIN NEGATIVE (NEGATIVE); URINE COLOR YELLOW; URINE GLUCOSE (UA) NEGATIVE (NEGATIVE); URINE KETONE TRACE (NEGATIVE); URINE LEUK ESTERASE 3+ (NEGATIVE); URINE NITRITE POSITIVE (NEGATIVE); URINE PROTEIN 3+ (NEGATIVE); URINE WBC 2990 /uL (0-25.8)
[2025-03-02 12:18] LABS: URINE RBC 140.2 /uL (0-23.9)
[2025-03-02] MEDS ORDERED: MEROPENEM 1 GM VIAL (RESTRICTED TO ID) IVPB ONE (12:35)
[2025-03-02] MEDS: MEROPENEM 1 GM in DEXTROSE 5%-WATER 100 ML IVPB ONE (12:44)
[2025-03-02 14:09] LABS: HIV INTERPRETATION NEGATIVE (NEGATIVE)
[2025-03-02 14:10] LABS: HCV DIAGNOSTIC IN-HOUSE W/RFLX NON-REACTIVE (NONREACTIVE)
[2025-03-02] MEDS: ONDANSETRON 4 MG/2 ML VIAL IVPUSH ONE (17:28)
[2025-03-02] MEDS: MEROPENEM 1 GM in DEXTROSE 5%-WATER 100 ML IVPB SCH (18:36)
[2025-03-02] MEDS: POLYETHYLENE GLYCOL (HEALTHYLAX) 3350 17 GM PACKET PO SCH (22:24)
[2025-03-02] MEDS: PREGABALIN 100 MG CAPSULE PO SCH (22:24)
[2025-03-02] MEDS: BUDESONIDE/FORMETEROL FUMARATE 160/4.5 mcg INHALER IH SCH (22:39)
[2025-03-03] MEDS: ACETAMINOPHEN 325 MG TABLET (FP) PO ONE (06:55)
[2025-03-03 08:12] LABS: HEMATOCRIT 31.8 % (34.1-44.9); HEMOGLOBIN 10.4 g/dL (11.2-15.7); MCHC 32.7 g/dl (32.2-35.5); MEAN CELL VOLUME 88.3 fl (79.4-94.8); MEAN PLT VOLUME 13.2 fl (9.4-12.3); PLATELET COUNT 210 x10^3/uL (182-369); RDW 15.5 % (12.4-16.6)
[2025-03-03 08:49] LABS: ALBUMIN 2.7 g/dl (3.4-5.0); CALCIUM 8.2 mg/dL (8.5-10.1)
[2025-03-03 08:50] LABS: BLOOD UREA NITROGEN 13.4 mg/dL (7-18)
[2025-03-03 08:52] LABS: CREATININE 0.6 mg/dL (0.55-1.3)
[2025-03-03 08:54] LABS: BILIRUBIN,TOTAL 0.5 mg/dL (0.2-1); TOT PROT 5.7 g/dl (6.4-8.2)
[2025-03-03] MEDS: METHIMAZOLE 5 MG TABLET PO SCH (09:27)
[2025-03-03] MEDS: ESCITALOPRAM OXALATE 10 MG TABLET PO SCH (09:27)
[2025-03-03] MEDS: PANTOPRAZOLE 40 MG TABLET PO SCH (09:27)
[2025-03-03] MEDS: ENOXAPARIN NA (PORCINE) 40 MG/0.4 ML DISP.SYRIN SQ SCH (09:27)
[2025-03-03] MEDS: SODIUM CHLORIDE 1,000 ML IV SCH (09:43)
[2025-03-03] MEDS ORDERED: ALBUTEROL SO4 0.083% IH SOL 2.5 MG/3 ML VIAL.NEB. NEB PRN (11:41)
[2025-03-03] MEDS: methylPREDNISolone NA SUCC 40 MG/1 ML VIAL IVPUSH SCH (12:50)
[2025-03-03] MEDS: ALBUTEROL SO4 2.5/IPRATROPIUM 0.5 INH SOL 3 ML VIAL.NEB. NEB SCH (13:23)
[2025-03-03] MEDS ORDERED: ACETAMINOPHEN 1000 MG/100 ML BAG IVPB PRN (14:31)
[2025-03-03] MEDS: MEROPENEM 1 GM in DEXTROSE 5%-WATER 100 ML IVPB SCH ×2 (17:28→23:34)
[2025-03-03] MEDS: MAG HYDROX/AL HYDROX/SIMETH 30 ML UNIT-DOSE CUP PO ONE ×2 (17:29→17:48)
[2025-03-03] MEDS: ACETAMINOPHEN 1000 MG/100 ML BAG IVPB PRN (19:21)
[2025-03-03] MEDS: MELATONIN 5 MG TABLETS PO ONE (22:18)
[2025-03-03] MEDS: traZODone HCL 50 MG TABLET (FP) PO ONE (22:56)
[2025-03-04 08:24] LABS: HEMATOCRIT 29.2 % (34.1-44.9); HEMOGLOBIN 9.9 g/dL (11.2-15.7); MCHC 33.9 g/dl (32.2-35.5); MEAN CELL VOLUME 85.4 fl (79.4-94.8); MEAN PLT VOLUME 12.9 fl (9.4-12.3); PLATELET COUNT 182 x10^3/uL (182-369); RDW 15.5 % (12.4-16.6)
[2025-03-04 09:24] LABS: POTASSIUM 4.8 mmol/L (3.5-5.1)
[2025-03-04 09:31] LABS: CALCIUM 8.2 mg/dL (8.5-10.1)
[2025-03-04 09:32] LABS: ALBUMIN 2.7 g/dl (3.4-5.0); BLOOD UREA NITROGEN 10.1 mg/dL (7-18)
[2025-03-04 09:35] LABS: CREATININE 0.4 mg/dL (0.55-1.3)
[2025-03-04 09:36] LABS: BILIRUBIN,TOTAL 0.4 mg/dL (0.2-1); TOT PROT 5.9 g/dl (6.4-8.2)
[2025-03-04] MEDS ORDERED: MANNITOL PO ONE (12:30)
[2025-03-04] MEDS ORDERED: SORBITOL PO ONE (12:30)
[2025-03-04] MEDS ORDERED: [UNRECOGNIZED DRUG - OTHER] PO ONE (12:30)
[2025-03-04] MEDS ORDERED: MELATONIN 5 MG TABLETS PO ONE (19:30)
[2025-03-04] MEDS: ACETAMINOPHEN 325 MG TABLET (FP) PO ONE (20:35)
[2025-03-04] MEDS: traZODone HCL 50 MG TABLET (FP) PO ONE (22:27)
[2025-03-04] MEDS: MELATONIN 5 MG TABLETS PO ONE (22:27)
[2025-03-05] MEDS: ACETAMINOPHEN 325 MG TABLET (FP) PO PRN (01:22)
[2025-03-05] MEDS: ALPRAZolam 0.25 MG TABLET PO ONE (02:08)
[2025-03-05 08:27] LABS: ABSOLUTE IMMATURE GRANULOCYTES 0.07 x10^3/uL (0.0-0.031); BASOPHILS # 0.01 x10^3/uL (0.01-0.08); HEMATOCRIT 31.2 % (34.1-44.9); HEMOGLOBIN 10.2 g/dL (11.2-15.7); MCHC 32.7 g/dl (32.2-35.5); MEAN CELL VOLUME 86.9 fl (79.4-94.8); MEAN PLT VOLUME 12.4 fl (9.4-12.3); MONOCYTE # 1.26 x10^3/uL (0.24-0.86); MONOCYTE % 7.9 % (4.7-12.5); PLATELET COUNT 271 x10^3/uL (182-369); RDW 15.2 % (12.4-16.6)
[2025-03-05 08:57] LABS: POTASSIUM 4.3 mmol/L (3.5-5.1)
[2025-03-05 09:10] LABS: ALBUMIN 2.8 g/dl (3.4-5.0); BLOOD UREA NITROGEN 8.7 mg/dL (7-18); CALCIUM 8.7 mg/dL (8.5-10.1)
[2025-03-05 09:13] LABS: CREATININE 0.5 mg/dL (0.55-1.3)
[2025-03-05 09:14] LABS: BILIRUBIN,TOTAL 0.3 mg/dL (0.2-1); TOT PROT 6.1 g/dl (6.4-8.2)
[2025-03-05] MEDS: MAG HYDROX/AL HYDROX/SIMETH 30 ML UNIT-DOSE CUP PO PRN (10:04)
[2025-03-05] MEDS: ACETAMINOPHEN 1000 MG/100 ML BAG IVPB ONE (20:52)
[2025-03-05] MEDS: MELATONIN 5 MG TABLETS PO ONE (21:48)
[2025-03-06] MEDS: ACETAMINOPHEN 1000 MG/100 ML BAG IVPB ONE (03:08)
[2025-03-06 08:30] LABS: ABSOLUTE IMMATURE GRANULOCYTES 0.07 x10^3/uL (0.0-0.031); BASOPHILS # 0.02 x10^3/uL (0.01-0.08); HEMATOCRIT 27.5 % (34.1-44.9); HEMOGLOBIN 9.1 g/dL (11.2-15.7); MCHC 33.1 g/dl (32.2-35.5); MEAN CELL VOLUME 86.5 fl (79.4-94.8); MEAN PLT VOLUME 11.9 fl (9.4-12.3); MONOCYTE # 1.41 x10^3/uL (0.24-0.86); PLATELET COUNT 256 x10^3/uL (182-369); RDW 15.1 % (12.4-16.6)
[2025-03-06 08:55] LABS: POTASSIUM 4.4 mmol/L (3.5-5.1)
[2025-03-06 09:02] LABS: ALBUMIN 2.4 g/dl (3.4-5.0); BLOOD UREA NITROGEN 9.9 mg/dL (7-18); CALCIUM 7.6 mg/dL (8.5-10.1); CREATININE 0.4 mg/dL (0.55-1.3)
[2025-03-06 09:04] LABS: BILIRUBIN,TOTAL 0.4 mg/dL (0.2-1); TOT PROT 5.2 g/dl (6.4-8.2)
[2025-03-06] MEDS: traZODone HCL 50 MG TABLET (FP) PO ONE (22:45)
[2025-03-06] MEDS: MELATONIN 5 MG TABLETS PO SCH (22:46)
[2025-03-06] MEDS: DOCUSATE SODIUM 100 MG CAPSULE (FP) PO ONE (22:46)
[2025-03-07 08:48] LABS: HEMATOCRIT 33.8 % (34.1-44.9); HEMOGLOBIN 10.8 g/dL (11.2-15.7); MEAN CELL VOLUME 88.5 fl (79.4-94.8); MEAN PLT VOLUME 12.1 fl (9.4-12.3); PLATELET COUNT 343 x10^3/uL (182-369); RDW 16.1 % (12.4-16.6)
[2025-03-07 09:11] LABS: POTASSIUM 4.6 mmol/L (3.5-5.1)
[2025-03-07 09:21] LABS: ALBUMIN 2.9 g/dl (3.4-5.0); CALCIUM 9.1 mg/dL (8.5-10.1)
[2025-03-07 09:24] LABS: CREATININE 0.5 mg/dL (0.55-1.3)
[2025-03-07 09:25] LABS: BILIRUBIN,TOTAL 0.5 mg/dL (0.2-1)
[2025-03-07] MEDS: MIRTAZAPINE 15 MG TABLET (FP) PO SCH (21:15)
[2025-03-07] MEDS: DOCUSATE SODIUM 100 MG CAPSULE (FP) PO PRN (21:15)
[2025-03-08 10:55] LABS: BASOPHILS # 0.01 x10^3/uL (0.01-0.08); HEMOGLOBIN 11.7 g/dL (11.2-15.7)
[2025-03-08 10:57] LABS: EOSINOPHIL % 0.3 % (0.7-5.8); EOSINOPHILS # 0.04 x10^3/uL (0.04-0.36); HEMATOCRIT 36.4 % (34.1-44.9); MCHC 32.1 g/dl (32.2-35.5); MEAN CELL VOLUME 87.5 fl (79.4-94.8); MEAN PLT VOLUME 12.1 fl (9.4-12.3); MONOCYTE # 1.47 x10^3/uL (0.24-0.86); MONOCYTE % 11.3 % (4.7-12.5); PLATELET COUNT 417 x10^3/uL (182-369); RDW 16.5 % (12.4-16.6)
[2025-03-08 11:14] LABS: POTASSIUM 4.5 mmol/L (3.5-5.1)
[2025-03-08 11:16] LABS: ALBUMIN 3.1 g/dl (3.4-5.0); BLOOD UREA NITROGEN 15.6 mg/dL (7-18); CALCIUM 8.9 mg/dL (8.5-10.1)
[2025-03-08 11:20] LABS: CREATININE 0.5 mg/dL (0.55-1.3)
[2025-03-08 11:21] LABS: BILIRUBIN,TOTAL 0.6 mg/dL (0.2-1); TOT PROT 6.5 g/dl (6.4-8.2)
[2025-03-09 07:26] LABS: ABSOLUTE IMMATURE GRANULOCYTES 0.09 x10^3/uL (0.0-0.031); BASOPHILS # 0.01 x10^3/uL (0.01-0.08); EOSINOPHIL % 1.2 % (0.7-5.8); EOSINOPHILS # 0.14 x10^3/uL (0.04-0.36); HEMATOCRIT 32.2 % (34.1-44.9); HEMOGLOBIN 10.7 g/dL (11.2-15.7); MCHC 33.2 g/dl (32.2-35.5); MEAN CELL VOLUME 85.9 fl (79.4-94.8); MEAN PLT VOLUME 11.1 fl (9.4-12.3); MONOCYTE # 1.73 x10^3/uL (0.24-0.86); MONOCYTE % 14.4 % (4.7-12.5); PLATELET COUNT 462 x10^3/uL (182-369); RDW 16.2 % (12.4-16.6)
[2025-03-09 07:49] LABS: POTASSIUM 4.7 mmol/L (3.5-5.1)
[2025-03-09 07:53] LABS: CALCIUM 9.2 mg/dL (8.5-10.1)
[2025-03-09 07:54] LABS: ALBUMIN 2.8 g/dl (3.4-5.0); BLOOD UREA NITROGEN 15.7 mg/dL (7-18)
[2025-03-09 07:57] LABS: CREATININE 0.5 mg/dL (0.55-1.3)
[2025-03-09 07:58] LABS: BILIRUBIN,TOTAL 0.5 mg/dL (0.2-1); TOT PROT 5.7 g/dl (6.4-8.2)
[2025-03-09] MEDS ORDERED: ALBUTEROL SO4 0.042% IH SOL 1.25 MG/3 ML VIAL.NEB NEB PRN (19:09)
[2025-03-09] MEDS ORDERED: ALBUTEROL SO4 2.5/IPRATROPIUM 0.5 INH SOL 3 ML VIAL.NEB. NEB PRN (19:09)
[2025-03-09] MEDS: MINERAL OIL ENEMA 133 ML ENEMA RC ONE (21:24)
[2025-03-09] MEDS: LACTULOSE 20 GM/30 ML UDC (FOR ORAL USE ONLY) PO SCH (21:58)
[2025-03-10 08:30] LABS: ABSOLUTE IMMATURE GRANULOCYTES 0.09 x10^3/uL (0.0-0.031); BASOPHILS # 0.02 x10^3/uL (0.01-0.08); MEAN PLT VOLUME 11.1 fl (9.4-12.3)
[2025-03-10 08:32] LABS: EOSINOPHIL % 0.9 % (0.7-5.8); EOSINOPHILS # 0.11 x10^3/uL (0.04-0.36); HEMATOCRIT 32.2 % (34.1-44.9); HEMOGLOBIN 10.6 g/dL (11.2-15.7); MCHC 32.9 g/dl (32.2-35.5); MEAN CELL VOLUME 86.1 fl (79.4-94.8); MONOCYTE # 1.42 x10^3/uL (0.24-0.86); MONOCYTE % 12.2 % (4.7-12.5); PLATELET COUNT 494 x10^3/uL (182-369); RDW 16.3 % (12.4-16.6)
[2025-03-10 09:45] LABS: POTASSIUM 4.3 mmol/L (3.5-5.1)
[2025-03-10 10:21] LABS: CALCIUM 8.9 mg/dL (8.5-10.1)
[2025-03-10 10:22] LABS: ALBUMIN 2.9 g/dl (3.4-5.0); BLOOD UREA NITROGEN 16.8 mg/dL (7-18)
[2025-03-10 10:26] LABS: BILIRUBIN,TOTAL 0.5 mg/dL (0.2-1); CREATININE 0.5 mg/dL (0.55-1.3)
[2025-03-10 10:27] LABS: TOT PROT 5.6 g/dl (6.4-8.2)
[2025-03-10] MEDS: POLYETHYLENE GLYCOL (HEALTHYLAX) 3350 17 GM PACKET PO SCH (13:40)
[2025-03-10] MEDS: DOCUSATE SODIUM 100 MG CAPSULE (FP) PO SCH (21:55)
[2025-03-11] MEDS: DOCUSATE SODIUM 100 MG CAPSULE (FP) PO SCH (09:46)
[2025-03-12 08:10] LABS: ABSOLUTE IMMATURE GRANULOCYTES 0.07 x10^3/uL (0.0-0.031); BASOPHILS # 0.05 x10^3/uL (0.01-0.08); EOSINOPHIL % 3.3 % (0.7-5.8); EOSINOPHILS # 0.34 x10^3/uL (0.04-0.36); HEMATOCRIT 30.1 % (34.1-44.9); HEMOGLOBIN 9.9 g/dL (11.2-15.7); MCHC 32.9 g/dl (32.2-35.5); MEAN CELL VOLUME 87.5 fl (79.4-94.8); MEAN PLT VOLUME 10.8 fl (9.4-12.3); MONOCYTE # 1.46 x10^3/uL (0.24-0.86); MONOCYTE % 14.3 % (4.7-12.5); PLATELET COUNT 492 x10^3/uL (182-369); RDW 15.9 % (12.4-16.6)
[2025-03-12 09:01] LABS: POTASSIUM 4.9 mmol/L (3.5-5.1)
[2025-03-12 09:10] LABS: ALBUMIN 2.7 g/dl (3.4-5.0)
[2025-03-12 09:11] LABS: BLOOD UREA NITROGEN 21.8 mg/dL (7-18); CALCIUM 8.7 mg/dL (8.5-10.1)
[2025-03-12 09:13] LABS: CREATININE 0.5 mg/dL (0.55-1.3)
[2025-03-12 09:15] LABS: BILIRUBIN,TOTAL 0.5 mg/dL (0.2-1); TOT PROT 5.3 g/dl (6.4-8.2)
[2025-03-12 14:50] VITALS: BP 93/61; PULSE 89; RESP 20; TEMP 98.1
== END 2025-03-12 18:42 | DRG 871 ==
LOC: JER 09:49 → JERBED 12:55 → J8W 14:07
PROVIDERS: ADMIT Internal Medicine; ATTEND Internal Medicine
DX: A41.59 Other Gram-negative sepsis (principal); E43 Unspecified severe protein-calorie malnutrition; J18.9 Pneumonia, unspecified organism; N39.0 Urinary tract infection, site not specified; J44.0 Chronic obstructive pulmonary disease with (acute) lower respiratory infection; E87.1 Hypo-osmolality and hyponatremia; Z68.1 Body mass index [BMI] 19.9 or less, adult; J96.11 Chronic respiratory failure with hypoxia; E78.5 Hyperlipidemia, unspecified; I10 Essential (primary) hypertension; J44.9 Chronic obstructive pulmonary disease, unspecified; D64.9 Anemia, unspecified; E05.90 Thyrotoxicosis, unspecified without thyrotoxic crisis or storm; B96.20 Unspecified Escherichia coli [E. coli] as the cause of diseases classified elsewhere; K21.9 Gastro-esophageal reflux disease without esophagitis; K58.9 Irritable bowel syndrome, unspecified; M76.899 Other specified enthesopathies of unspecified lower limb, excluding foot; R91.8 Other nonspecific abnormal finding of lung field; M54.50 Low back pain, unspecified; R10.13 Epigastric pain; D13.5 Benign neoplasm of extrahepatic bile ducts
CPT/HCPCS: 0241U-QW; 36415; 71045-TC-FY; 71250-TC; 74177-TC; 74183-TC; 80053; 81003; 82803; 83605; 84484; 85025; 85610; 85730; 86803; 86850; 86900; 86901; 87040; 87086; 87186; 87389; 93005; 93010; 94640; 97162-GP; 99285-25; J0131; Q9967